=== PATIENT | male | born 1965 | race Caucasian/White ===

== ENCOUNTER 2019-03-23 14:47 | Inpatient (IN) | payer MEDICARE, OTHER ==
[~2019-03-23] VITALS: Ht 193 cm; Wt 150.0 kg
[~2019-03-23 14:47] MED LIST: CHOL200056 PO; FER325 PO; FURO40TA4 PO; HYDR-3672 PO; INSU100C SQ; LANT3I SC; METO-448 PO; NEPH PO; THIA100T56 PO
[2019-03-23] MEDS ORDERED: HYDROmorphONE 1 MG/ML SYG IV ONE (15:00)
[2019-03-23] MEDS ORDERED: SOD CHLORIDE 0.9% 1,000 ML IV STA (15:55)
[2019-03-23] MEDS ORDERED: DIPHTH/TET/ACEL PERTUSS (ADULT) 0.5 ML VIAL IM* ONE (16:00)
[2019-03-23] MEDS ORDERED: CEFAZOLIN 2 GM/50 ML (PMX) 50 ML IVPB ONE (16:00)
[2019-03-23] MEDS ORDERED: SOD CHLORIDE 0.9% 0 ML IV ONE (16:16)
[2019-03-23] MEDS ORDERED: ONDANSETRON 4 MG INJ IV PRN (17:00)
[2019-03-23] MEDS ORDERED: ACETAMINOPHEN 325 MG TAB PO PRN ×2 (17:00→17:30)
[2019-03-23] MEDS ORDERED: NACL 0.9% 3 ML SYG IV SCH (17:30)
[2019-03-23] MEDS ORDERED: VANCOMYCIN IV PER PHARMACY XX SCH (17:30)
[2019-03-23] MEDS ORDERED: HYDROCODONE/APAP (5/325) TAB PO PRN (17:30)
--- NOTE | 2019-03-23 18:11 | ERD ---
ER Documentation Chief Complaint Chief Complaint S/P [facility], HAS DISTAL TIB/FIB OPEN FX HPI 53-year-old male presenting status post injury to the right leg. He was brought in by ambulance. He states that he was trying to get into a car when his right leg twisted and he fell to the ground. Per EMS, he had an open wound and laila dence of deformity in the right lower extremity. Splint was placed and he was transferred to the hospital. Patient states he has diabetic neuropathy and cannot feel pain in his leg. He has additional complaints of dizziness at this time but was not dizzy prior to the fall. Denies any chest pain or shortness of breath. Has a history of diabetes, hypertension, and CKD. Denies any blood thinner use. No head injury today. ROS All systems reviewed and are negative except as per history of present illness. Medications Home Meds Reported Medications Insulin Glargine* (Lantus*) 100 Unit/Ml Soln, 22 UNIT SC QHS, #1 VIAL 03/23/19 Insulin Lispro (Humalog) 100 Unit/1 Ml Cartridge, 0 SQ SLIDING SCALE, EA WITH MEALS 03/23/19 Cholecalciferol (Vitamin D3) (Vitamin D-3) 2,000 Unit Tablet, 2000 UNIT PO DAILY, TAB 03/23/19 Thiamine* (Vitamin B-1*) 100 Mg Tablet, 100 MG PO DAILY, TAB 03/23/19 Furosemide* (Furosemide*) 40 Mg Tablet, 40 MG PO BID, TAB 03/23/19 Multivit/Ca Carb/B Cmplx/Fa* (Radha-Grace*) 1 Tab Tab, 1 TAB PO DAILY, TAB 03/23/19 Ferrous Sulfate* (Ferrous Sulfate*) 325 Mg Tabec, 325 MG PO BID, TAB 03/23/19 Metoprolol Tartrate* (Lopressor*) 25 Mg Tab, 25 MG PO BID, #60 TAB 03/23/19 Hydralazine Hcl* (Hydralazine Hcl*) 50 Mg Tab, 50 MG PO BID PRN for HTN, #60 TAB 03/23/19 Allergies Allergies: Coded Allergies: No Known Allergy (Unverified , 03/23/19) PMhx/Soc History of Surgery: No Anesthesia Reaction: No Hx Neurological Disorder: No Hx Respiratory Disorders: No Hx Cardiac Disorders: Yes (HTN) Hx Psychiatric Problems: No Hx Miscellaneous Medical Probl: Yes (CKD, DM on injectable insulin) Hx Alcohol Use: No Hx Substance Use: No Hx Tobacco Use: No Smoking Status: Never smoker FmHx Family History: diabetes Physical Exam Vitals Vital Signs Date Temp Pulse Resp B/P (MAP) Pulse Ox O2 O2 Flow FiO2 Time Delivery Rate 03/23/19 67 18 122/60 10 Nasal 2.0 16:00 (80) Cannula 03/23/19 98.9 84 18 124/101 99 14:58 (109) Physical Exam Const: No acute distress. Appears very pale Head: Atraumatic Eyes: Pale conjunctiva ENT: dry mucous membranes. Normal External Ears, Nose and Mouth. Neck: Full range of motion. No meningismus. Resp: Clear to auscultation bilaterally Cardio: Regular rate and rhythm, no murmurs. 2+ distal pulses in all 4 extremities Abd: Soft, non tender, non distended. Normal bowel sounds Skin: No petechiae or rashes Back: No midline or flank tenderness Ext: Right lower extremity with obvious deformity of the lower tib-fib with overlying laceration 6 cm. No bone visualized. There is active oozing of blood. No tenderness to palpation. All other extremities normal to inspection and palpation without evidence of deformity or trauma. Neur: Awake and alert, oriented x3, normal speech, cranial nerves intact, strength intact in bilateral upper extremities. Limited exam in the right lower extremity secondary to injury. Left lower extremity with normal strength. Sensations diminished in bilateral lower extremities up to the knees. Psych: Normal Mood and Affect Result Diagram: 03/23/19 1552 03/23/19 1552 Results 24 hrs Laboratory Tests Test 03/23/19 15:52 03/23/19 17:24 White Blood Count 7.2 10^3/ul Red Blood Count 2.62 10^6/ul Hemoglobin 7.3 g/dl Hematocrit 23.3 % Mean Corpuscular Volume 88.9 fl Mean Corpuscular Hemoglobin 27.9 pg Mean Corpuscular Hemoglobin Concent 31.3 g/dl Red Cell Distribution Width 14.1 % Platelet Count 187 10^3/UL Mean Platelet Volume 12.2 fl Immature Granulocytes % 0.600 % Neutrophils % 82.0 % Lymphocytes % 9.3 % Monocytes % 5.5 % Eosinophils % 2.3 % Basophils % 0.3 % Nucleated Red Blood Cells % 0.0 /100WBC Immature Granulocytes # 0.040 10^3/ul Neutrophils # 5.9 10^3/ul Lymphocytes # 0.7 10^3/ul Monocytes # 0.4 10^3/ul Eosinophils # 0.2 10^3/ul Basophils # 0.0 10^3/ul Nucleated Red Blood Cells # 0.0 10^3/ul Prothrombin Time 14.3 Sec Prothrombin Time Ratio 1.1 INR International Normalized Ratio 1.10 Activated Partial Thromboplast Time 30.3 Sec Sodium Level 140 mmol/L Potassium Level 5.3 mmol/L Chloride Level 114 mmol/L Carbon Dioxide Level 15 mmol/L Anion Gap 11 Blood Urea Nitrogen 77 mg/dl Creatinine 7.88 mg/dl Est Glomerular Filtrat Rate mL/min 7 mL/min Glucose Level 302 mg/dl Calcium Level 6.4 mg/dl Ethyl Alcohol Level < 10.0 mg/dl Urine Opiates Screen NEGATIVE Urine Barbiturates NEGATIVE Urine Amphetamines Screen NEGATIVE Urine Benzodiazepines Screen NEGATIVE Urine Cocaine Screen NEGATIVE Urine Cannabinoids NEGATIVE Current Medications Medications Dose Sig/Latoya Start Time Status Last (Trade) Ordered Route PRN Stop Time Admin Dose Reason Admin 0.5 mg ONCE ONCE 03/23/19 DC 03/23/19 Hydromorphone IV 15:00 15:03 HCl 03/23/19 15:01 (Dilaudid) Sodium 1,000 ml @ Q1H STAT 03/23/19 DC 03/23/19 Chloride 1,000 mls/hr IV 15:55 16:45 03/23/19 16:54 Diphtheria/ 0.5 ml ONCE ONCE 03/23/19 DC 03/23/19 Tetanus/Acell IM* 16:00 16:45 Pertussis 03/23/19 16:01 (Adacel) Cefazolin 50 ml @ ONCE ONCE 03/23/19 DC 03/23/19 Sodium/ 100 mls/hr IVPB 16:00 16:57 Dextrose 03/23/19 16:29 Sodium 0 ml @ 0 Q0M ONCE 03/23/19 DC Chloride mls/hr IV 16:16 03/23/19 16:18 Ondansetron 4 mg BRIDGE ORDER 03/23/19 DC HCl (Zofran PRN IV 17:00 Inj) NAUSEA/VOMITI 03/23/19 17:40 NG 650 mg ER BRIDGE 03/23/19 DC Acetaminophen PRN PO 17:00 (Tylenol .MILD PAIN 03/23/19 17:40 Tab) 1-3 OR TEMP Vancomycin VANCOMYCIN PER 03/23/19 DC HCl (Vanco PER PHARMACY PROTOCOL XX 17:30 Iv Per 03/23/19 17:40 Pharmacy) Cefepime HCl 50 ml @ Q24H IVPB 03/23/19 100 mls/hr 21:00 Sodium 1,000 ml @ [id number] IV 03/23/19 Chloride 75 mls/hr 17:25 IV Flush 3 ml PER 03/23/19 (NS 3 ml) PROTOCOL IV 17:30 Ondansetron 4 mg Q6H PRN 03/23/19 HCl (Zofran IV 17:30 Inj) NAUSEA/VOMITI NG 650 mg Q6H PRN 03/23/19 Acetaminophen PO .PAIN 1-3 17:30 (Tylenol OR TEMP Tab) 1 tab Q6H PRN 03/23/19 Acetaminophen PO .PAIN 4-6 17:30 / Hydrocodone Bitart ([place] (5/325)) Morphine 2 mg Q4H PRN 03/23/19 Sulfate IV .PAIN 17:30 (morphine) 7-10 40 mg DAILY@06 03/24/19 Pantoprazole PO 06:00 (Protonix Tab) Vancomycin 500 ml @ ONCE ONCE 03/23/19 HCl 2 125 mls/hr IVPB 18:30 gm/Sodium 03/23/19 22:29 Chloride Discontinue ONCE ONCE 03/23/19 Miscellaneous current oral XX 18:00 sulfonylur... 03/23/19 18:01 Information (* Miscellaneous Pharmacy Order) Diagnostic 1 ea 02 XX 03/24/19 Test (Pha) 02:00 (Accu-Chek) Insulin 23 units DAILY@199903/23/19 Glargine SC 20:00 (Lantus) ONCE ONCE 03/23/19 Miscellaneous HYPOGLYCEMIA XX 18:00 PROTOCOL 03/23/19 18:01 Information w... (* Miscellaneous Pharmacy Order) Insulin NOVOLOG Q6 SC 03/23/19 Aspart *MILD* 18:00 (Novolog ALGORITHM Insulin Pen) Discontinue ONCE ONCE 03/23/19 Miscellaneous all previ... XX 18:00 03/23/19 18:01 Information (* Miscellaneous Pharmacy Order) Procedures/MDM EMERGENT LABS AND DIAGNOSTIC STUDIES: Lab Results above were reviewed and interpreted by me. CBC: Evidence of anemia, likely combination of chronic disease with acute blood loss BMP: Elevated BUN and creatinine with evidence of acidosis and mild hyperkalemia. Hyperglycemic. Ethanol negative Coags normal 12-lead EKG was interpreted by Bessy Portillo MD: Normal Sinus Rhythm with ventricular rate of 67 beats per minute Normal axis Normal intervals No acute ST or T wave changes suggestive of acute ischemia or STEMI. Radiology Results as interpreted by Radiology below were reviewed by Renan paul MD: X-ray of the right tib-fib shows evidence of distal tibia and fibula fracture with displacement. Chest x-ray shows no acute abnormalities Initial Nursing notes reviewed. Previous Medical Records requested via the Electronic Health Record. EMERGENCY DEPARTMENT COURSE / MEDICAL DECISION MAKING: Patient presents with open fracture of the right tib-fib. He was also noted to be pale and likely lost a lot of blood from the injury. His hemoglobin was low on work-up. He also has evidence of significant renal failure but is not currently on dialysis. He will need admission for management of his tib-fib fracture but will also need consultation with a pc technician. I have ordered 2 units of PRBCs given his symptomatic anemia and continuous bleeding. Pressure dressing was placed. He was given broad-spectrum antibiotics for open fracture. Splint was placed. Patient remained hemodynamically stable while in the ED. Critical Care Management of Hemorrhage and Symptomatic Anemia: Time: 40 minutes Treatments/Evaluations: Close monitoring and management of bleeding sources while maintaining tight balance of fluid. With judicious assessment of anemia, coagulopathy and thrombocytopenia, while considering correction with blood products and medical therapy. Accepting Care Team: Current data and ongoing care discussed. Time: Time of admission Primary Provider: Dr. Aidan Toth Consulting: Dr. Santos with orthopedics Outstanding Data: none Departure Diagnosis: Primary Impression: Open fracture of right tibia and fibula Encounter type: initial encounter Additional Impressions: Fracture of proximal end of right fibula Encounter type: initial encounter Fracture type: open Fracture morphology: unspecified fracture morphology Acute on chronic renal failure Acute renal failure type: unspecified Chronic kidney disease stage: unspecified stage Qualified Codes: N17.9 - Acute kidney failure, unspecified; N18.9 - Chronic kidney disease, unspecified Anemia Anemia type: unspecified type Qualified Codes: D64.9 - Anemia, unspecified Condition: Serious LESA PORTILLO MD Mar 23, 2019 18:10
--- NOTE | 2019-03-23 18:21 | HP ---
Date/Time of Note Date/Time of Note DATE: 03/23/19 TIME: 18:20 Assessment/Plan VTE Prophylaxis Pharmacological prophylaxis: other Lines/Catheters IV Catheter Type (from Nrsg): Saline Lock Assessment/Plan Hospital Course Patient is a male with a past medical history significant for diabetes mellitus, severe peripheral neuropathy, anemia, CKD who presents to [facility] for traumatic fall and open fracture. Patient has an open right tib-fib fracture however currently is not stating that he is in any pain due to severe neuropathy. Patient states that for quite a while he has not been able to have much feeling in his lower extremity however bit worse on his right where his fractures. Patient states that he was try to get in his truck, lost his balance and fell and subsequently broke his leg. Patient currently denies any shortness of breath, denies chest pain, denies nausea vomiting, denies headache, denies vision changes, denies abdominal pain. Objective Physical exam General: Patient is laying in bed and answers questions appropriately Mentation: Patient is alert and oriented 4, Head: Normocephalic atraumatic Eyes: EOMI, pupils reactive to light Neck: Supple, nontender, midline Respiratory: Clear to auscultation bilaterally Cardiovascular: regular rate, no obvious murmurs Gastrointestinal: non-tender to palpation, bowel sounds heard. Neurological: Moves all extremities spontaneously Musculoskeletal: Right lower extremity bandaged, open fracture Assessment and plan Right tib-fib open fracture -Broad-spectrum IV antibiotic -Orthopedic surgeon notified of open fracture, keep n.p.o. for possible surgery -Infection disease consulted for antibiotic management -Cardiology consulted for possible clearance as much as possible before urgent surgery Chronic kidney disease with likely near end-stage renal disease -Nephrology consulted -Patient has been told in the past that he needs dialysis but has not initiated it yet, open to dialysis at this time Electrolyte derangement -Replete as needed -Unable to calculate accurate calcium as there is no albumin, ordered, will supplement with 1 g of calcium gluconate for now -Monitor potassium, Kayexalate as needed moderate to severe anemia -2 units packed cells ordered -Monitor closely Peripheral neuropathy -Moderate to severe as patient has very little feeling in his right lower extremity and left lower extremity that is chronic Diabetes mellitus -Lantus and insulin sliding scale as per patient's home regimen Disposition -Orthopedic surgery recommendations appreciated, will likely need urgent surgery -Also pending consultation from cardiology, infectious disease, and nephrology. -Admit to telemetry for multiple electrolyte derangement. Result Diagram: 03/23/19 1552 03/23/19 1552 Results 24hrs Laboratory Tests Test 03/23/19 15:52 03/23/19 17:24 White Blood Count 7.2 Red Blood Count 2.62 L Hemoglobin 7.3 L Hematocrit 23.3 L Mean Corpuscular Volume 88.9 Mean Corpuscular Hemoglobin 27.9 L Mean Corpuscular Hemoglobin Concent 31.3 L Red Cell Distribution Width 14.1 Platelet Count 187 Mean Platelet Volume 12.2 H Immature Granulocytes % 0.600 H Neutrophils % 82.0 H Lymphocytes % 9.3 L Monocytes % 5.5 Eosinophils % 2.3 Basophils % 0.3 Nucleated Red Blood Cells % 0.0 Immature Granulocytes # 0.040 H Neutrophils # 5.9 Lymphocytes # 0.7 L Monocytes # 0.4 Eosinophils # 0.2 Basophils # 0.0 Nucleated Red Blood Cells # 0.0 Prothrombin Time 14.3 Prothrombin Time Ratio 1.1 INR International Normalized Ratio 1.10 Activated Partial Thromboplast Time 30.3 Sodium Level 140 Potassium Level 5.3 H Chloride Level 114 H Carbon Dioxide Level 15 L Anion Gap 11 Blood Urea Nitrogen 77 H Creatinine 7.88 H Est Glomerular Filtrat Rate mL/min 7 L Glucose Level 302 H Calcium Level 6.4 L Ethyl Alcohol Level < 10.0 H Urine Opiates Screen NEGATIVE Urine Barbiturates NEGATIVE Urine Amphetamines Screen NEGATIVE Urine Benzodiazepines Screen NEGATIVE Urine Cocaine Screen NEGATIVE Urine Cannabinoids NEGATIVE HPI/ROS Admit Date/Time Admit Date/Time PMH/Family/Social Past Medical History Medications Current Medications Cefepime HCl 50 ml @ 100 mls/hr Q24H IVPB ; Start 03/23/19 at 21:00 Sodium Chloride 1,000 ml @ 75 mls/hr [id number] IV ; Start 03/23/19 at 17:25 IV Flush (NS 3 ml) 3 ml PER PROTOCOL IV ; Start 03/23/19 at 17:30 Ondansetron HCl (Zofran Inj) 4 mg Q6H PRN IV NAUSEA/VOMITING; Start 03/23/19 at 17:30 Acetaminophen (Tylenol Tab) 650 mg Q6H PRN PO .PAIN 1-3 OR TEMP; Start 03/23/19 at 17:30 Acetaminophen/ Hydrocodone Bitart ([place] (5/325)) 1 tab Q6H PRN PO .PAIN 4-6; Start 03/23/19 at 17:30 Morphine Sulfate (morphine) 2 mg Q4H PRN IV .PAIN 7-10; Start 03/23/19 at 17:30 Pantoprazole (Protonix Tab) 40 mg DAILY@06 PO ; Start 03/24/19 at 06:00 Vancomycin HCl 2 gm/Sodium Chloride 500 ml @ 125 mls/hr ONCE ONCE IVPB ; Start 03/23/19 at 18:30; Stop 03/23/19 at 22:29 Diagnostic Test (Pha) (Accu-Chek) 1 ea 02 XX ; Start 03/24/19 at 02:00 Insulin Glargine (Lantus) 23 units DAILY@2000 SC ; Start 03/23/19 at 20:00 Insulin Aspart (Novolog Insulin Pen) NOVOLOG *MILD* ALGORITHM Q6 SC ; Start 03/23/19 at 18:00 Calcium Gluconate 1 gm/Dextrose 110 ml @ 110 mls/hr ONCE ONCE IVPB ; Start 03/23/19 at 18:30; Stop 03/23/19 at 19:29 Ferrous Sulfate (Ferrous Sulfate (Ec)) 325 mg BID PO ; Start 03/23/19 at 21:00; Status UNV Furosemide (Lasix) 40 mg BID PO ; Start 03/23/19 at 21:00; Status UNV Metoprolol Tartrate (Lopressor) 25 mg BID PO ; Start 03/23/19 at 21:00; Status UNV Multivit/Ca Carb/ B Cmplx/FA/Prenat (Radha-Grace) 1 tab DAILY PO ; Start 03/24/19 at 09:00; Status UNV Thiamine HCl (Vitamin B1) 100 mg DAILY PO ; Start 03/24/19 at 09:00; Status UNV Miscellaneous Information 2,000 unit DAILY PO ; Start 03/24/19 at 09:00; Status UNV Hydralazine HCl (Apresoline) 10 mg Q4H PRN IV sbp >160; Start 03/23/19 at 18:30; Status UNV Coded Allergies: No Known Allergy (Unverified , 03/23/19) Social History Smoking Status: Never smoker Exam/Review of Systems Vital Signs Vitals Vital Signs Date Temp Pulse Resp B/P (MAP) Pulse Ox O2 O2 Flow FiO2 Time Delivery Rate 03/23/19 68 18 138/60 100 Nasal 2.0 18:00 (86) Cannula 03/23/19 98.9 14:58 BRIANDA IZQUIERDO Mar 23, 2019 18:20
[2019-03-23] MEDS ORDERED: CALCIUM GLUCONATE 10% 1 GM in DEXTROSE 5% 100 ML IVPB ONE (18:30)
[2019-03-23] MEDS ORDERED: VANCOMYCIN HCL 2 GM in SOD CHLORIDE 0.9% 500 ML IVPB ONE (18:30)
[2019-03-23 19:24] VITALS: BP 128/60; PULSE 76; RESP 18
--- NOTE | 2019-03-23 19:51 | CONS ---
Assessment/Plan Assessment/Plan Hospital Course (Demo Recall) 53 yo diabetic with near ESRD, severe anemia, peripheral neuropathy presents with open tib-fib fracture and for preop cardiovascular evaluation. 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 Consequences of delaying surgery significantly preclude ischemic workup. Echo to evaluate LV systolic function and for structural abnormalities given dyspnea with minimal exertion Will put him on a statin, which is a class 1 recommendation for secondary prevention in a diabetic over age 40, and lipid panel ordered Discussed importance of lifestyle -- better eating, and more exercise/mobility, to reduce risk of ASCVD. Also discussed importance of more routine follow-up with his medical providers going forward. Consultation Date/Type/Reason Admit Date/Time Date of Consultation: Mar 23, 2019 Type of Consult Cardiology Reason for Consultation preoperative cardiovascular evaluation Requesting Provider: BRIANDA IZQUIERDO Date/Time of Note DATE: 03/23/19 TIME: 19:38 Hx of Present Illness 53 yo with diabetes x about 20 years, diabetic neuropathy, chronic kidney disease stage 4 presents after a fall while getting into his truck leading to a tib-fib fracture. Apparently this is an open fracture, but he does not feel any pain whatsoever. He has no known prior cardiac issues, his follow up for primary care is spotty with his last care to his TV NEWS DIRECTOR who serves as his primary over six months ago. He has no head of integrated media, and has not seen a kidney specialist in a few years. He cannot recall ever having a stress test. He is minimally active, walks with a walker, has progressively gotten more dyspneic over time, and now reports that walking 100 feet will cause him to be short of breath. He has no chest pain. He has chronic lower extremity edema. He admits diet is not ideal, he rents a room, eats a lot of microwaved foods, girlfriend does cook some vegetables for him, tries to provide him fruit as well, he does not eat much of either, particularly fruit. He also has chronic lower extremity edema up to the knees. Lifelong nonsmoker, minimal alcohol, no drugs, no family history of premature coronary disease. Constitutional: no complaints Eyes: no complaints ENT: no complaints Respiratory: shortness of breath (with exertion, not at present) Cardiovascular: no complaints; No chest pain Gastrointestinal: no complaints Genitourinary: no complaints Musculoskeletal: no complaints; No bone/joint pain Skin: no complaints Neurologic: other (neuropathy in legs) Endocrine: no complaints Lymphatic: no complaints Psychological: no complaints Immunologic: no complaints Past Medical History Medical History: diabetes, hypertension, renal disease Home Meds Reported Medications Insulin Glargine* (Lantus*) 100 Unit/Ml Soln, 22 UNIT SC QHS, #1 VIAL 03/23/19 Insulin Lispro (Humalog) 100 Unit/1 Ml Cartridge, 0 SQ SLIDING SCALE, EA WITH MEALS 03/23/19 Cholecalciferol (Vitamin D3) (Vitamin D-3) 2,000 Unit Tablet, 2000 UNIT PO DAILY, TAB 03/23/19 Thiamine* (Vitamin B-1*) 100 Mg Tablet, 100 MG PO DAILY, TAB 03/23/19 Furosemide* (Furosemide*) 40 Mg Tablet, 40 MG PO BID, TAB 03/23/19 Multivit/Ca Carb/B Cmplx/Fa* (Radha-Grace*) 1 Tab Tab, 1 TAB PO DAILY, TAB 03/23/19 Ferrous Sulfate* (Ferrous Sulfate*) 325 Mg Tabec, 325 MG PO BID, TAB 03/23/19 Metoprolol Tartrate* (Lopressor*) 25 Mg Tab, 25 MG PO BID, #60 TAB 03/23/19 Hydralazine Hcl* (Hydralazine Hcl*) 50 Mg Tab, 50 MG PO BID PRN for HTN, #60 TAB 03/23/19 Medications Current Medications Cefepime HCl 50 ml @ 100 mls/hr Q24H IVPB ; Start 03/23/19 at 21:00 Sodium Chloride 1,000 ml @ 75 mls/hr [id number] IV ; Start 03/23/19 at 17:25 IV Flush (NS 3 ml) 3 ml PER PROTOCOL IV ; Start 03/23/19 at 17:30 Ondansetron HCl (Zofran Inj) 4 mg Q6H PRN IV NAUSEA/VOMITING; Start 03/23/19 at 17:30 Acetaminophen (Tylenol Tab) 650 mg Q6H PRN PO .PAIN 1-3 OR TEMP; Start 03/23/19 at 17:30 Acetaminophen/ Hydrocodone Bitart ([place] (5/325)) 1 tab Q6H PRN PO .PAIN 4-6; Start 03/23/19 at 17:30 Morphine Sulfate (morphine) 2 mg Q4H PRN IV .PAIN 7-10; Start 03/23/19 at 17:30 Pantoprazole (Protonix Tab) 40 mg DAILY@06 PO ; Start 03/24/19 at 06:00 Vancomycin HCl 2 gm/Sodium Chloride 500 ml @ 125 mls/hr ONCE ONCE IVPB ; Start 03/23/19 at 18:30; Stop 03/23/19 at 22:29 Diagnostic Test (Pha) (Accu-Chek) 1 ea 02 XX ; Start 03/24/19 at 02:00 Insulin Glargine (Lantus) 23 units DAILY@2000 SC ; Start 03/23/19 at 20:00 Insulin Aspart (Novolog Insulin Pen) NOVOLOG *MILD* ALGORITHM Q6 SC ; Start 03/23/19 at 18:00 Ferrous Sulfate (Ferrous Sulfate (Ec)) 325 mg BID PO ; Start 03/23/19 at 21:00 Furosemide (Lasix) 40 mg BID PO ; Start 03/23/19 at 21:00 Metoprolol Tartrate (Lopressor) 25 mg BID PO ; Start 03/23/19 at 21:00 Multivit/Ca Carb/ B Cmplx/FA/Prenat (Radha-Grace) 1 tab DAILY PO ; Start 03/24/19 at 09:00 Thiamine HCl (Vitamin B1) 100 mg DAILY PO ; Start 03/24/19 at 09:00 Hydralazine HCl (Apresoline) 10 mg Q4H PRN IV sbp >160; Start 03/23/19 at 18:30 Cholecalciferol (Vitamin D) 2,000 unit DAILY PO ; Start 03/24/19 at 09:00 Allergies: Coded Allergies: No Known Allergy (Unverified , 03/23/19) Past Surgical History Past Surgical Hx: other (abscess excisiion from back) Family History Significant Family History: no pertinent family hx (no premature cad) Social History Alcohol Use: rarely Smoking Status: Never smoker Drug Use: none Exam/Review of Systems Vital Signs Vitals Vital Signs Date Temp Pulse Resp B/P (MAP) Pulse Ox O2 O2 Flow FiO2 Time Delivery Rate 03/23/19 98.4 76 18 128/60 99 Room Air 19:24 (82) 03/23/19 2.0 18:22 Exam Constitutional: alert, oriented, other (obese) Psych: nl mood/affect Head: normocephalic, atraumatic Eyes: EOMI, nl lids, nl sclera ENMT: nl external ears & nose Neck: supple; No jvd, No bruits Respiratory: clear to auscultation (anteriorly), normal air movement Cardiovascular: regular rate and rhythm, nl pulses; No murmurs/extra sounds Gastrointestinal: soft (obese), nl liver, spleen, non-tender Musculoskeletal: other (right leg not examined, has an open tib-fib fracture) Extremities: edema (edema up to just below the knee on the left, did not examine right leg); No normal pulses (cannot palpate DP or PT pulses on the left) Neurological: nl mental status, nl speech Skin: nl turgor; No rash or lesions Labs Result Diagram: 03/23/19 1552 03/23/19 1552 Results 24hrs Laboratory Tests Test 03/23/19 15:52 03/23/19 17:24 White Blood Count 7.2 Red Blood Count 2.62 L Hemoglobin 7.3 L Hematocrit 23.3 L Mean Corpuscular Volume 88.9 Mean Corpuscular Hemoglobin 27.9 L Mean Corpuscular Hemoglobin Concent 31.3 L Red Cell Distribution Width 14.1 Platelet Count 187 Mean Platelet Volume 12.2 H Immature Granulocytes % 0.600 H Neutrophils % 82.0 H Lymphocytes % 9.3 L Monocytes % 5.5 Eosinophils % 2.3 Basophils % 0.3 Nucleated Red Blood Cells % 0.0 Immature Granulocytes # 0.040 H Neutrophils # 5.9 Lymphocytes # 0.7 L Monocytes # 0.4 Eosinophils # 0.2 Basophils # 0.0 Nucleated Red Blood Cells # 0.0 Prothrombin Time 14.3 Prothrombin Time Ratio 1.1 INR International Normalized Ratio 1.10 Activated Partial Thromboplast Time 30.3 Sodium Level 140 Potassium Level 5.3 H Chloride Level 114 H Carbon Dioxide Level 15 L Anion Gap 11 Blood Urea Nitrogen 77 H Creatinine 7.88 H Est Glomerular Filtrat Rate mL/min 7 L Glucose Level 302 H Calcium Level 6.4 L Albumin 2.6 L Ethyl Alcohol Level < 10.0 H Urine Opiates Screen NEGATIVE Urine Barbiturates NEGATIVE Urine Amphetamines Screen NEGATIVE Urine Benzodiazepines Screen NEGATIVE Urine Cocaine Screen NEGATIVE Urine Cannabinoids NEGATIVE Imaging Imaging EKG from presentation shows nsr at 67 bpm and is a normal appearing ekg Medications Medications Current Medications Cefepime HCl 50 ml @ 100 mls/hr Q24H IVPB ; Start 03/23/19 at 21:00 Sodium Chloride 1,000 ml @ 75 mls/hr [id number] IV ; Start 03/23/19 at 17:25 IV Flush (NS 3 ml) 3 ml PER PROTOCOL IV ; Start 03/23/19 at 17:30 Ondansetron HCl (Zofran Inj) 4 mg Q6H PRN IV NAUSEA/VOMITING; Start 03/23/19 at 17:30 Acetaminophen (Tylenol Tab) 650 mg Q6H PRN PO .PAIN 1-3 OR TEMP; Start 03/23/19 at 17:30 Acetaminophen/ Hydrocodone Bitart ([place] (5/325)) 1 tab Q6H PRN PO .PAIN 4-6; Start 03/23/19 at 17:30 Morphine Sulfate (morphine) 2 mg Q4H PRN IV .PAIN 7-10; Start 03/23/19 at 17:30 Pantoprazole (Protonix Tab) 40 mg DAILY@06 PO ; Start 03/24/19 at 06:00 Vancomycin HCl 2 gm/Sodium Chloride 500 ml @ 125 mls/hr ONCE ONCE IVPB ; Start 03/23/19 at 18:30; Stop 03/23/19 at 22:29 Diagnostic Test (Pha) (Accu-Chek) 1 ea 02 XX ; Start 03/24/19 at 02:00 Insulin Glargine (Lantus) 23 units DAILY@2000 SC ; Start 03/23/19 at 20:00 Insulin Aspart (Novolog Insulin Pen) NOVOLOG *MILD* ALGORITHM Q6 SC ; Start 03/23/19 at 18:00 Ferrous Sulfate (Ferrous Sulfate (Ec)) 325 mg BID PO ; Start 03/23/19 at 21:00 Furosemide (Lasix) 40 mg BID PO ; Start 03/23/19 at 21:00 Metoprolol Tartrate (Lopressor) 25 mg BID PO ; Start 03/23/19 at 21:00 Multivit/Ca Carb/ B Cmplx/FA/Prenat (Radha-Grace) 1 tab DAILY PO ; Start 03/24/19 at 09:00 Thiamine HCl (Vitamin B1) 100 mg DAILY PO ; Start 03/24/19 at 09:00 Hydralazine HCl (Apresoline) 10 mg Q4H PRN IV sbp >160; Start 03/23/19 at 18:30 Cholecalciferol (Vitamin D) 2,000 unit DAILY PO ; Start 03/24/19 at 09:00 MÓNICA DRAKE Mar 23, 2019 19:51
[2019-03-23 20:00] VITALS: Ht 193 cm; Wt 150.0 kg
[2019-03-23] MEDS: morphine 2 MG INJ IV PRN (20:23)
[2019-03-23] MEDS: SOD CHLORIDE 0.45% 1,000 ML IV SCH (20:28)
[2019-03-23] MEDS: FERROUS SULFATE (EC) 325 MG TAB PO SCH (20:29)
[2019-03-23] MEDS: CEFEPIME 1GM/50 ML (PMX) 50 ML IVPB SCH (20:29)
[2019-03-23] MEDS: ATORVASTATIN 40 MG TAB PO SCH (20:30)
[2019-03-23] MEDS: METOPROLOL 25 MG TAB PO SCH (20:30)
[2019-03-23] MEDS: FUROSEMIDE 40 MG TAB PO SCH (20:31)
[2019-03-23] MEDS: INSULIN ASPART [NOVOLOG] 3 ML PEN SC SCH (21:48)
[2019-03-23] MEDS: INSULIN GLARGINE [LANTus] (100 UNITS/ML) SYG SC SCH (21:49)
[2019-03-24] VITALS (15 sets, daily range): BP systolic 124–213; BP diastolic 55–95; PULSE 65–86; RESP 18–20
[2019-03-24] MEDS: ACCU-CHEK XX SCH (02:00)
[2019-03-24] MEDS: ONDANSETRON 4 MG INJ IV PRN (04:37)
[2019-03-24] MEDS: PANTOPRAZOLE (EC) 40 MG TAB PO SCH (06:00)
[2019-03-24] MEDS: SOD CHLORIDE 0.45% 1,000 ML IV SCH ×2 (06:45→20:05)
[2019-03-24] MEDS: INSULIN ASPART [NOVOLOG] 3 ML PEN SC SCH ×2 (06:57)
[2019-03-24] MEDS: CHOLECALCIFEROL 2,000 UNIT CAP PO SCH (09:00)
[2019-03-24] MEDS: FERROUS SULFATE (EC) 325 MG TAB PO SCH ×2 (09:00→22:11)
[2019-03-24] MEDS: METOPROLOL 25 MG TAB PO SCH ×2 (09:00→22:07)
[2019-03-24] MEDS ORDERED: NON-FORMULARY/PATIENT OWN MED (Cholecalciferol (Vitamin D3) (Vitamin D-3) 2,000 UNIT) PO SCH (09:00)
[2019-03-24] MEDS: THIAMINE 100 MG TAB PO SCH (09:00)
[2019-03-24] MEDS: FUROSEMIDE 40 MG TAB PO SCH ×2 (09:00→22:06)
[2019-03-24] MEDS: MULTIVIT/CA CARB/B CMPLX/FA TAB PO SCH (09:00)
[2019-03-24] MEDS ORDERED: INSULIN ASPART [NOVOLOG] 3 ML PEN SC SCH (12:00)
[2019-03-24] MEDS: Insulin NOVOLOG SS MODERATE Algorithm(NPO/TPN/ENTERAL FEEDS) SC SCH ×2 (12:08→17:49)
--- NOTE | 2019-03-24 12:12 | CONS ---
DATE OF ADMISSION: 03/23/2019 DATE OF CONSULTATION: 03/24/2019 TYPE OF CONSULTATION: Nephrology. REASON FOR CONSULTATION: CKD, possible acute kidney injury. PHYSICIAN REQUESTING CONSULT: Aidan Toth MD HISTORY OF PRESENT ILLNESS: This is a 53-year-old male with a past medical history of CKD stage III- IV, with unknown baseline creatinine, history of diabetes, history of peripheral neuropathy, anemia, presents to [facility] after a traumatic fall and open fracture. The patient was b rought into the emergency room, had x-rays performed which showed evidence of fracture of the right t ibia-fibula. The patient was subsequently placed in a brace and admitted to telemetry for evaluation . In terms of patient's renal history, the patient states he has underlying CKD. He reports function a round 40%, approximately 2 years ago. The patient states six months ago he did have blood work done, but was not told what his kidney function was. The patient does admit over the last month of uremic symptoms of fatigue, decreased appetite, metallic taste in his mouth. The patient states his urine has been adequate. He denies any hemoptysis, any hematemesis. The patient does admit to occasional frothy urine. PAST MEDICAL HISTORY: History of CKD, history of diabetes, history of hypertension. FAMILY HISTORY: No family history of kidney disease. SOCIAL HISTORY: Does not drink, smoke or do drugs. MEDICATIONS: The patient's medications have been reviewed. REVIEW OF SYSTEMS: A 14-point review of systems conducted. Pertinent positives stated in HPI, other smith negative. PHYSICAL EXAMINATION: VITAL SIGNS: Blood pressure is 141/71, respiration 18, pulse 65, temperature 98.1. HEENT: Head is normocephalic. NECK: Supple. HEART: Regular rate. LUNGS: Show diminished breath sounds at the base. ABDOMEN: Soft, nontender to palpation without rebound or guarding. EXTREMITIES: Negative for clubbing, cyanosis. Positive edema. The patient's right leg is in a brac e. NEUROLOGIC: Limited exam but no obvious focal deficits. MEDICATIONS: Have been reviewed. LABORATORY DATA: From 03/23/2019 was reviewed. IMAGING STUDIES: Have been reviewed. ASSESSMENT AND PLAN: This is a 53-year-old male who presents with: 1. Renal failure, possible chronic kidney disease with progression towards end-stage renal disease v ersus acute on chronic kidney injury. Plan at this point, is stool for evaluation. We will check UA with microanalysis, check urine electrolytes. We will check a renal ultrasound to rule out obstruct ion. Agree with gentle volume expansion. Please note, I did speak with the patient about the possib ility of starting dialysis given his advanced renal failure and uremic signs and symptoms. The patie nt is amenable to start dialysis. We will therefore follow up renal panel, electrolytes. If there i s no significant improvement in renal function, would have a Perm-A-Cath placement to initiate dialys is. 2. Hyperkalemia. Etiology is likely multifactorial secondary to chronic kidney disease, metabolic acidosis, hyperglycemia. Plan is to repeat renal panel. Recommend to try to obtain new glycemia con trol, monitor closely. 3. Metabolic acidosis. Likely secondary to chronic kidney disease. Will check an arterial blood ga s to see if the patient is appropriately compensated. 4. Anemia. Monitor hemoglobin and hematocrit levels. We will check an iron panel. The patient is pending blood transfusion. Will give Epogen as needed. 5. Mineral bone disorder. Monitor calcium and phosphorus levels. Check a PTH level, vitamin D leve l. 6. Status post fall with right tibia-fibula fracture. Continue to monitor. Follow up with surgery. 7. Diabetes. Continue current insulin regimen. 8. Peripheral neuropathy. Continue current medical management. Thank you, Dr. Toth, for this interesting consult. It will be a pleasure to follow patient with you rufus riveraout the hospital course. Dictated By: KITTY EID DO NR/NTS Conf#: [id number] DID#: [id number] CC: AIDAN TOTH MD;*EndCC*
--- NOTE | 2019-03-24 12:53 | CONS ---
DATE OF ADMISSION: 03/23/2019 DATE OF CONSULTATION: 03/23/2019 TYPE OF CONSULTATION: Infectious Disease. REASON FOR CONSULTATION: Antibiotic management. HISTORY OF PRESENT ILLNESS: Sascha Neely is a 53-year-old male who suffered a mechanical fall and has a distal tibia-fibula open fracture. The patient presents status post injury to his right leg, w as brought in by ambulance. He was trying to get into his car when his right leg twisted and he fell to the ground. Per EMS, he had an open wound and evidence of deformity of the right lower extremity . The splint was placed and he was transferred to the hospital. The patient has a number of problems includin. Diabetic neuropathy and cannot feel pain in the leg. 2. He has complaints of dizziness, but was not dizzy in the fall. 3. Hypertension. 4. Chronic renal disease. As noted, he suffered a distal tibia and fibula open fracture. The patient is on injectable insulin. FAMILY HISTORY: Noncontributory. SOCIAL HISTORY: He does not smoke, drink or abuse drugs and he has a family history of diabetes. ALLERGIES: NONE TO PENICILLIN, SULFA OR FOODS. MEDICATIONS: Per chart. REVIEW OF SYSTEMS: Noncontributory. PHYSICAL EXAMINATION: GENERAL: The patient is pale, well-developed, well-nourished male in no acute distress. VITAL SIGNS: Stable. He is afebrile. SKIN: Without generalized rash. HEENT: Within normal limits. NECK: Supple. LYMPH NODES: None palpable. CHEST: Decreased breath sounds at the bases. HEART: Without murmur or gallop. ABDOMEN: Soft, nontender. EXTREMITIES: Without cyanosis, clubbing, or edema. His right lower extremity has an obvious deformi ty of the lower tibia and fibula with overlying laceration about 6 cm. There is no bone visualized. There is active oozing of blood. RECTAL AND GENITAL: Deferred. NEUROLOGIC: No focal neurological abnormality. ANCILLARY LABORATORY DATA: White count 7.2, H and H of 7.3/23,3, platelet count 187,000. BUN and cr eatinine 77/7.88, glucose of 302 with 82% neutrophils. Patient was started on vancomycin and cefepime. X-ray shows evidence of distal tibia and fibula frac ture with displacement. Chest x-ray shows no acute abnormalities. Dr. Santos was asked to consult from an orthopedic perspective. The patient had an open fracture, currently is on antibiotic therapy. T he patient was seen by Pauline Cloud. The patient is minimally active, walks with a walker progre ssively gotten more dyspneic over time, now reports walking on his feet. This causes him to be short of breath. As noted, he is on insulin. In terms of antibiotic management. The patient should be o n antibiotics for at least 3 days since he has open comminuted fracture. He is to be evaluated by Dr Nettie Santos, to see what has to be done. He will likely need urgent surgery. I will dictate my findings t o the hospitalist. Of note, is the fact that his BUN and creatinine 77/7.88 today, so he will probab ly require hemodialysis. Nephrology has been called. Dictated By: KO LOVE MD, JD/FELICIA Conf#: [id number] DID#: [id number] CC: BRIANDA IZQUIERDO MD;*EndCC*
--- NOTE | 2019-03-24 16:40 | RADRPT ---
Echocardiogram Report Patient Name: SILVIA GARCIAPatient ID: [id number] : 1965 (53y 5m)Study Date: 03/24/2019 7:09:43 AM Gender: MAccession #: [id number] Tech: Kayla [facility] Location: [facility] Ref.Physician: BRIANDA IZQUIERDO Height(Cm): BSA: Weight(Kg): Quality: AdequateOrder Physician: BRIANDA IZQUIERDO Account #: Procedures: Echocardiographic Report: Transthoracic echocardiogram with complete 2D, M-Mode, and doppler examination. Indications: Cardiac workup. Measurements: 2D/M Mode Doppler Measurement Value Normal Range Measurement Value Normal Range LVIDd 2D 5.0 [ 4.2 - 5.8 ] cm AV Peak Stanley 1.7 [ 100.0 - 170.0 ] cm/sec LVIDs 2D 2.5 [ 2.5 - 4.0 ] cm AV Peak PG 12.0 [ 2.0 - 9.0 ] mmHg LVPWd 2D 1.3 [ 0.6 - 1.0 ] cm LVOT Peak Stanley 1.2 [ 70.0 - 110.0 ] cm/sec IVSd 2D 1.2 [ 0.6 - 1.0 ] cm LVOT Peak PG 6.0 [ 2.0 - 6.0 ] mmHg AoR Diam 2D 3.0 [ 2.6 - 3.4 ] cm MV E Peak Stanley 0.9 [ 60.0 - 130.0 ] cm/sec EDV 2D 120.0 [ 62.0 - 150.0 ] ml MV A Peak Stanley 0.8 [ 100.0 - 120.0 ] cm/sec ESV 2D 22.1 [ 21.0 - 61.0 ] ml MV E/A 1.2 [ 0.8 - 1.5 ] ratio EF 2D 81.6 [ 52.0 - 72.0 ] percent MV Decel Time 190 [ 104 - 258 ] msec LA Dimen 2D 4.6 [ 3.0 - 4.0 ] cm Lat E` Stanley 0.1 [ 10.0 - 15.0 ] cm/sec Lateral E/E` 10.7 [ 1.0 - 2.0 ] ratio Med E` Stanley 0.1 cm/sec MV E/A 1.2 [ 0.8 - 1.5 ] ratio TR Peak Stanley 2.4 [ 100.0 - 280.0 ] cm/sec TR Peak PG 22.0 mmHg RVSP 25.0 [ 10.0 - 36.0 ] mmHg RA Pressure 3.0 mmHg Findings: Left Ventricle: Normal left ventricular systolic function. Normal left ventricular cavity size. Mild concentric left ventricular hypertrophy. Ejection fraction is visually estimated at 65 %. Tissue Doppler/Mitral Doppler indices are consistent with pseudonormalization with mildly elevated left atrial pressure (Stage II diastolic dysfunction). Right Ventricle: Normal right ventricular size. Normal right ventricular systolic function. Left Atrium: There is mild enlargement of left atrium. Right Atrium: The right atrium is normal in size. Mitral Valve: Normal appearance and function of the mitral valve with trace physiologic regurgitation. Aortic Valve: Normal appearance of the aortic valve. No significant aortic stenosis or insufficiency. Tricuspid Valve: Normal appearance of the tricuspid valve. The estimated Peak RVSP is 25 mmHg. There is trace tricuspid regurgitation. Pulmonic Valve: Pulmonic valve not well visualized. Pericardium: Normal pericardium with no significant pericardial effusion. Aorta: Normal aortic root. IVC: Normal size and normal respiratory collapse consistent with normal right atrial pressure. Conclusions: Mild concentric left ventricular hypertrophy with normal systolic function. Mild left atrial enlargement. Trace mitral and tricuspid regurgitation with normal pulmonary pressures. Electronically Signed By: Pauline Cloud 2019-03-24 16:39:35 PDT
--- NOTE | 2019-03-24 16:58 | SIPON ---
Date/Time of Note Date/Time of Note DATE: 03/24/19 TIME: 16:57 Operative Report Preoperative Diagnosis ESRD Postoperative Diagnosis same Operation/Procedure Performed R IJ permacath placement Surgeon see signature line business office assistant none Anesthesia: other Estimated blood loss: minimal Transfusion Required none Specimen none Grafts/Implants 28 cm permacath Complications none EVE VARELA MD Mar 24, 2019 16:58
[2019-03-24] MEDS: EPOETIN ALFA-EPBX (ESRD) 10,000 UNIT/ML VIAL SC SCH (17:42)
--- NOTE | 2019-03-24 17:49 | PN ---
Date/Time of Note Date/Time of Note DATE: 03/24/19 TIME: 17:46 Objective Vitals Vital Signs Date Temp Pulse Resp B/P (MAP) Pulse Ox O2 O2 Flow FiO2 Time Delivery Rate 03/24/19 98.5 71 20 158/72 95 Room Air 15:51 (100) 03/23/19 2.0 18:22 Intake and Output 03/23/19 03/23/19 03/24/19 1515:00 23:00 07:00 IntakeIntake Total 160 ml 500 ml OutputOutput Total 600 ml BalanceBalance 160 ml -100 ml Results Result Diagram: 03/24/19 0947 03/24/19 0948 Medications Medications Current Medications Vancomycin HCl (Vanco Iv Per Pharmacy) VANCOMYCIN PER PHARMACY PER PROTOCOL XX ; Start 03/23/19 at 17:30 Cefepime HCl 50 ml @ 100 mls/hr Q24H IVPB Last administered on 03/23/19at 20:29; Admin Dose 100 MLS/HR; Start 03/23/19 at 21:00 Sodium Chloride 1,000 ml @ 75 mls/hr [id number] IV Last administered on 03/23/19at 20:28; Admin Dose 75 MLS/HR; Start 03/23/19 at 17:25 IV Flush (NS 3 ml) 3 ml PER PROTOCOL IV ; Start 03/23/19 at 17:30 Ondansetron HCl (Zofran Inj) 4 mg Q6H PRN IV NAUSEA/VOMITING Last administered on 03/24/19at 04:37; Admin Dose 4 MG; Start 03/23/19 at 17:30 Acetaminophen (Tylenol Tab) 650 mg Q6H PRN PO .PAIN 1-3 OR TEMP; Start 03/23/19 at 17:30 Acetaminophen/ Hydrocodone Bitart ([place] (5/325)) 1 tab Q6H PRN PO .PAIN 4-6; Start 03/23/19 at 17:30 Morphine Sulfate (morphine) 2 mg Q4H PRN IV .PAIN 7-10 Last administered on 03/23/19at 20:23; Admin Dose 2 MG; Start 03/23/19 at 17:30 Pantoprazole (Protonix Tab) 40 mg DAILY@06 PO ; Start 03/24/19 at 06:00 Diagnostic Test (Pha) (Accu-Chek) 1 02 XX ; Start 03/24/19 at 02:00 Insulin Glargine (Lantus) 23 units DAILY@2000 SC Last administered on 03/23/19at 21:49; Admin Dose 23 UNITS; Start 03/23/19 at 20:00 Ferrous Sulfate (Ferrous Sulfate (Ec)) 325 mg BID PO Last administered on 03/23/19at 20:29; Admin Dose 325 MG; Start 03/23/19 at 21:00 Furosemide (Lasix) 40 mg BID PO Last administered on 03/23/19at 20:31; Admin Dose 40 MG; Start 03/23/19 at 21:00 Metoprolol Tartrate (Lopressor) 25 mg BID PO Last administered on 03/23/19at 20:30; Admin Dose 25 MG; Start 03/23/19 at 21:00 Multivit/Ca Carb/ B Cmplx/FA/Prenat (Radha-Grace) 1 tab DAILY PO ; Start 03/24/19 at 09:00 Thiamine HCl (Vitamin B1) 100 mg DAILY PO ; Start 03/24/19 at 09:00 Hydralazine HCl (Apresoline) 10 mg Q4H PRN IV sbp >160; Start 03/23/19 at 18:30 Cholecalciferol (Vitamin D) 2,000 unit DAILY PO ; Start 03/24/19 at 09:00 Atorvastatin Calcium (Lipitor) 40 mg HS PO Last administered on 03/23/19at 20:30; Admin Dose 40 MG; Start 03/23/19 at 21:00 Insulin Aspart (Novolog Insulin Pen) (Adult SC Insulin - Moder... Q6 SC Last administered on 03/24/19at 12:08; Admin Dose 2 UNIT; Start 03/24/19 at 12:00 Miscellaneous Information (*Rx Drug Level Order Reminder*) RANDOM VANCOMYCIN LEVEL ... 0500 ONCE XX ; Start 03/25/19 at 05:00; Stop 03/25/19 at 05:01 Epoetin Edouard-epbx (Retacrit (Esrd)) 10,000 unit MoWeFr@1700 SC ; Start 03/24/19 at 17:00 Atorvastatin Calcium (Lipitor) 10 mg HS PO ; Start 03/24/19 at 21:00 VTE Prophylaxis Risk score (from Nsg)>0 risk: 10 SCD applied (from Nsg): Yes Lines/Catheters IV Catheter Type: Montane[place] in Place: No Assessment/Plan Hospital Course Subjective Patient doing well, is okay with doing dialysis Objective Physical exam General: Patient is laying in bed and answers questions appropriately Mentation: Patient is alert and oriented 4, Head: Normocephalic atraumatic Eyes: EOMI, pupils reactive to light Neck: Supple, nontender, midline Respiratory: Clear to auscultation bilaterally Cardiovascular: regular rate, no obvious murmurs Gastrointestinal: non-tender to palpation, bowel sounds heard. Neurological: Moves all extremities spontaneously Musculoskeletal: Right lower extremity bandaged, open fracture Assessment and plan Right tib-fib open fracture -Broad-spectrum IV antibiotic -Orthopedic surgeon notified of open fracture, surgery on scheduled for tomorrow, n.p.o. after midnight -Infection disease consulted for antibiotic management -Cardiology consulted for cardiac needs before surgery -Nephrology needs to do hemodialysis before surgery, planning dialysis today Chronic kidney disease with likely near end-stage renal disease -Nephrology consulted -Patient agreeable for dialysis, permacath placed -Nephrology to order dialysis marleni Electrolyte derangement -Replete as needed -Nephrology on board moderate to severe anemia - secondary to hemorrhagic cause secondary to open fracture -2 more units packed RBC ordered, FFP ordered to prevent hemodilutional coagulopathy Peripheral neuropathy -Moderate to severe as patient has very little feeling in his right lower extremity and left lower extremity that is chronic Diabetes mellitus -Lantus and insulin sliding scale as per patient's home regimen Disposition -Orthopedic surgery recommendations appreciated, will likely need urgent surgery as soon as dialysis correct patient's electrolytes -Hemodialysis planned for tonight BRIANDA IZQUIERDO Mar 24, 2019 17:49
--- NOTE | 2019-03-24 17:56 | PREAC ---
Date/Time of Note Date/Time of Note DATE: 03/24/19 TIME: 17:52 Anesthesia Eval and Record Evaluation Time Pre-Procedure Interview DATE: 03/24/19 TIME: 17:52 Age 53 Sex male NPO: 8 hrs Preoperative diagnosis open right tib-fib fracture Planned procedure RIGHT IM TIBIAL NAILING Past Medical History Past Medical History: Includes Cardio: HTN Endo: Diabetes Neuro: Peripheral neuropathy Renal: CKD, ESRD on dialysis GI: Morbid obesity Heme: Anemia Surgery & Anesthesia Issues No known issue Meds Anticoagulation: No Beta Deandra within 24 hr: No Reason Beta Deandra not given: Pt. not on B-Deandra Reported Medications Insulin Glargine* (Lantus*) 100 Unit/Ml Soln, 22 UNIT SC QHS, #1 VIAL 03/23/19 Insulin Lispro (Humalog) 100 Unit/1 Ml Cartridge, 0 SQ SLIDING SCALE, EA WITH MEALS 03/23/19 Cholecalciferol (Vitamin D3) (Vitamin D-3) 2,000 Unit Tablet, 2000 UNIT PO DAILY, TAB 03/23/19 Thiamine* (Vitamin B-1*) 100 Mg Tablet, 100 MG PO DAILY, TAB 03/23/19 Furosemide* (Furosemide*) 40 Mg Tablet, 40 MG PO BID, TAB 03/23/19 Multivit/Ca Carb/B Cmplx/Fa* (Radha-Grace*) 1 Tab Tab, 1 TAB PO DAILY, TAB 03/23/19 Ferrous Sulfate* (Ferrous Sulfate*) 325 Mg Tabec, 325 MG PO BID, TAB 03/23/19 Metoprolol Tartrate* (Lopressor*) 25 Mg Tab, 25 MG PO BID, #60 TAB 03/23/19 Hydralazine Hcl* (Hydralazine Hcl*) 50 Mg Tab, 50 MG PO BID PRN for HTN, #60 TAB 03/23/19 Current Medications Vancomycin HCl (Vanco Iv Per Pharmacy) VANCOMYCIN PER PHARMACY PER PROTOCOL XX ; Start 03/23/19 at 17:30 Cefepime HCl 50 ml @ 100 mls/hr Q24H IVPB Last administered on 03/23/19at 20:29; Admin Dose 100 MLS/HR; Start 03/23/19 at 21:00 Sodium Chloride 1,000 ml @ 75 mls/hr [id number] IV Last administered on 03/23/19at 20:28; Admin Dose 75 MLS/HR; Start 03/23/19 at 17:25 IV Flush (NS 3 ml) 3 ml PER PROTOCOL IV ; Start 03/23/19 at 17:30 Ondansetron HCl (Zofran Inj) 4 mg Q6H PRN IV NAUSEA/VOMITING Last administered on 03/24/19at 04:37; Admin Dose 4 MG; Start 03/23/19 at 17:30 Acetaminophen (Tylenol Tab) 650 mg Q6H PRN PO .PAIN 1-3 OR TEMP; Start 03/23/19 at 17:30 Acetaminophen/ Hydrocodone Bitart ([place] (5/325)) 1 tab Q6H PRN PO .PAIN 4-6; Start 03/23/19 at 17:30 Morphine Sulfate (morphine) 2 mg Q4H PRN IV .PAIN 7-10 Last administered on 03/23/19at 20:23; Admin Dose 2 MG; Start 03/23/19 at 17:30 Pantoprazole (Protonix Tab) 40 mg DAILY@06 PO ; Start 03/24/19 at 06:00 Diagnostic Test (Pha) (Accu-Chek) 1 ea 02 XX ; Start 03/24/19 at 02:00 Insulin Glargine (Lantus) 23 units DAILY@2000 SC Last administered on 03/23/19at 21:49; Admin Dose 23 UNITS; Start 03/23/19 at 20:00 Ferrous Sulfate (Ferrous Sulfate (Ec)) 325 mg BID PO Last administered on 03/23/19at 20:29; Admin Dose 325 MG; Start 03/23/19 at 21:00 Furosemide (Lasix) 40 mg BID PO Last administered on 03/23/19at 20:31; Admin Dose 40 MG; Start 03/23/19 at 21:00 Metoprolol Tartrate (Lopressor) 25 mg BID PO Last administered on 03/23/19at 20:30; Admin Dose 25 MG; Start 03/23/19 at 21:00 Multivit/Ca Carb/ B Cmplx/FA/Prenat (Radha-Grace) 1 tab DAILY PO ; Start 03/24/19 at 09:00 Thiamine HCl (Vitamin B1) 100 mg DAILY PO ; Start 03/24/19 at 09:00 Hydralazine HCl (Apresoline) 10 mg Q4H PRN IV sbp >160; Start 03/23/19 at 18:30 Cholecalciferol (Vitamin D) 2,000 unit DAILY PO ; Start 03/24/19 at 09:00 Atorvastatin Calcium (Lipitor) 40 mg HS PO Last administered on 03/23/19at 20:30; Admin Dose 40 MG; Start 03/23/19 at 21:00 Insulin Aspart (Novolog Insulin Pen) (Adult SC Insulin - Moder... Q6 SC Last administered on 03/24/19at 17:49; Admin Dose 4 UNIT; Start 03/24/19 at 12:00 Miscellaneous Information (*Rx Drug Level Order Reminder*) RANDOM VANCOMYCIN LEVEL ... 0500 ONCE XX ; Start 03/25/19 at 05:00; Stop 03/25/19 at 05:01 Epoetin Edouard-epbx (Retacrit (Esrd)) 10,000 unit MoWeFr@1700 SC Last admini stered on 03/24/19at 17:42; Admin Dose 10,000 UNIT; Start 03/24/19 at 17:00 Atorvastatin Calcium (Lipitor) 10 mg HS PO ; Start 03/24/19 at 21:00 Meds reviewed: Yes Allergies Coded Allergies: No Known Allergy (Unverified , 03/23/19) Allergies Reviewed: Yes Labs/Studies Labs Reviewed: Reviewed by anesthesiologist (1 unit of PRBC given today (03/24/19) another unit of PRBC will be given during dialysis tonight - lab redraws are ordered for tomorrow ) Result Diagram: 03/24/19 0947 03/24/19 0948 Laboratory Tests 03/24/19 09:47 03/24/19 09:48 test: N/A Studies: ECG (SR), CXR (The lungs are clear of acute infiltrates, edema, ef fusions, or masses.. The cardiomediastinal silhouette is unremarkable. The osseous structures are intact.), 2D Echo (EF 605) Pre-procedure Exam Last vitals Vital Signs Date Temp Pulse Resp B/P (MAP) Pulse Ox O2 O2 Flow FiO2 Time Delivery Rate 03/24/19 98.5 71 20 158/72 95 Room Air 15:51 (100) 03/23/19 2.0 18:22 Airway: Adequate mouth opening Mallampati: Mallampati II Teeth: Normal Lung: Normal Heart: Normal ASA Physical Status ASA physical status: 4 Emergency: None Planned Anesthetic General/MAC: ETT Pre-operative Attestations Prior to commencing anesthesia and surgery, the patient was re-evaluated, there was verification of: *The patient's identity *The results of appropriate recent lab work and preoperative vital signs *The above evaluation not changing prior to induction *Anesthetic plan, risk benefits, alternative and complications discussed with patient/family; questions answered; patient/family understands, accepts and wishes to proceed. KOKI BONILLA Mar 24, 2019 17:56
--- NOTE | 2019-03-24 18:47 | PN ---
DATE: 03/24/2019 SUBJECTIVE: The patient is alert, feels good. Denies pain. No fevers overnight. LABORATORY DATA: WBC 8.2, platelets 137, neutrophils 77.4, hemoglobin 6.1. BUN 76, creatinine 7.96. ANTIMICROBIALS: The patient is on: 1. Cefepime. 2. Vancomycin. PHYSICAL EXAMINATION: GENERAL: This is a morbidly obese, well-developed, middle-aged, white man who is awake, in no distre ss. HEAD: Atraumatic, normocephalic. NECK: Supple. CHEST: Rise symmetrical. Breath sounds diminished to bases. HEART: S1, S2. ABDOMEN: Soft, bowel tones present. EXTREMITIES: Right lower extremity dressing intact. ASSESSMENT: 1. Open fracture of distal tibia and fibula, status post mechanical fall. 2. Acute renal failure, possibly on chronic disease. 3. Diabetes. 4. Obesity. 5. Hypertension. PLAN: The patient remains stable. He is on appropriate antibiotic regimen. Cardiology is on case f or cardiac clearance, pending ortho evaluation and follow renal recommendations. Dictated By: ANGELA LEMUS VERIFICATION REP for KO LOVE MD NI/NTS Conf#: [id number] DID#: [id number] CC: BRIANDA IZQUIERDO MD;*EndCC*
[2019-03-24] MEDS ORDERED: MANNITOL 25% 50 ML IV PRN (19:00)
[2019-03-24] MEDS: ATORVASTATIN 40 MG TAB PO SCH (22:06)
[2019-03-24] MEDS: ATORVASTATIN 10 MG TAB PO SCH (22:06)
[2019-03-24] MEDS: hydrALAzine 20 MG INJ IV PRN (22:07)
[2019-03-24] MEDS: HEPARIN 1000 UNITS/ML 10 ML INJ CATHETER SCH (22:39)
[2019-03-24] MEDS ORDERED: MAGNESIUM SULFATE 3 GM in DEXTROSE 5% 100 ML IVPB ONE (23:00)
[2019-03-24] MEDS: CEFEPIME 1GM/50 ML (PMX) 50 ML IVPB SCH (23:44)
[2019-03-24] MEDS: morphine 2 MG INJ IV PRN (23:55)
[2019-03-25] VITALS (26 sets, daily range): BP systolic 127–186; BP diastolic 50–89; PULSE 62–78; RESP 8–24
[2019-03-25] MEDS: Insulin NOVOLOG SS MODERATE Algorithm(NPO/TPN/ENTERAL FEEDS) SC SCH ×4 (00:07→23:44)
[2019-03-25] MEDS: INSULIN GLARGINE [LANTus] (100 UNITS/ML) SYG SC SCH ×2 (00:08→23:44)
--- NOTE | 2019-03-25 01:04 | CONS ---
DATE OF ADMISSION: 03/23/2019 DATE OF CONSULTATION: 03/24/2019 TYPE OF CONSULTATION: Vascular REFERRING PHYSICIAN: Dr. Brianda Toth REASON FOR CONSULTATION: Dialysis access. HISTORY OF PRESENT ILLNESS: This is a 53-year-old diabetic gentleman. He has severe peripheral neur opathy, anemia, and chronic kidney disease. He was getting out of his truck and he fell yesterday an d now has a tib-fib fracture on the right, it is an open fracture. He has had chronic kidney disease , but now has progressed to end-stage renal disease. His creatinine is 7.96. Potassium is 4.9. He is going to go for surgery tomorrow to fix the broken leg, so I was asked to place a Perm-A-Cath for hemodialysis. PAST MEDICAL HISTORY: Significant for diabetes, poorly controlled; severe peripheral neuropathy; chr onic kidney disease; anemia. He has gotten a couple units of blood. PAST SURGICAL HISTORY: Significant for drainage of multiple abscesses on his back and his buttocks. When he fell, when he broke the right leg, he also tore the nail off of the second toe on the right f oot, so he has an exposed nail bed there. MEDICATIONS: Currently consist of: 1. Epogen. 2. Insulin. 3. Multivitamin. 4. Thiamine. 5. Vitamin D. 6. Protonix. 7. Cefepime. 8. Iron. 9. Lasix. 10. Lopressor. 11. Lipitor. 12. Lantus. 13. Vancomycin. 14. Apresoline. ALLERGIES: NO KNOWN DRUG ALLERGIES. SOCIAL HISTORY: He is a nonsmoker. He does not drink or use any illicit drugs. FAMILY HISTORY: Noncontributory. REVIEW OF SYSTEMS: He denies any chest pain, shortness of breath. No nausea, vomiting, diarrhea. Tanner russ has noted a lot of edema in his legs for the last several months, but other than that has no other specific complaints. He has such severe peripheral neuropathy he does not have even have any pain in the leg where the ankle is broken. PHYSICAL EXAMINATION GENERAL: He is a middle-aged gentleman. He speaks Indonesian fluently. VITAL SIGNS: He has been afebrile. Blood pressure is 158/72, heart rate 71, respiratory is 20. He is 95% sat on room air. He has 2+ radial, brachial, carotid pulses bilaterally. He is right-handed. I do not see any superficial veins in either arm. He has no lines in the neck or chest wall. LUNGS: Clear. HEART: Regular rate and rhythm. ABDOMEN: Obese, soft, nontender, nondistended. EXTREMITIES: He has 2+ femoral and popliteal pulses bilaterally. Right foot is wrapped up and it is casted and I did not remove it. I did not palpate the pulses in the right foot but the toes look wa rm and pink. He does have the second toe on the right foot, the nail has been avulsed and it looks l arlene there may even be bone exposed at the tip of the phalanx. On the left, he has 2+ DP and PT pulse . No wounds on the left. He has 2+ edema in the left foot and calf. The right foot, again, is wrap ped. LABORATORY DATA: His creatinine is almost 8, potassium is okay. He is anemic. It has gotten 2 unit s of blood. Platelet count is 137, so a little low, white count is normal. IMPRESSION: Acute on chronic renal failure. It looks like he is probably going to need long-term he modialysis. I am going to place a Perm-A-Cath now so he can dialyze tonight before his surgery michael diaz to fix the leg and I vein map him at some point and plan for residential hemodialysis access with a fistula, and I discussed that with him as well. Dictated By: EVE LÓPEZ/FELICIA Conf#: [id number] DID#: [id number] CC: BRIANDA TOTH MD; KO LOVE MD; MÓNICA DRAKE MD; KITTY EID DO;*EndCC*
[2019-03-25] MEDS: ACCU-CHEK XX SCH (02:00)
[2019-03-25] MEDS ORDERED: DIPHENHYDRAMINE 50 MG INJ IV ONE (02:30)
[2019-03-25] MEDS ORDERED: LORAZEPAM 2 MG INJ IV ONE (02:30)
--- NOTE | 2019-03-25 03:18 | OPR ---
DATE OF OPERATION: 03/24/2019 PREOPERATIVE DIAGNOSIS: End-stage renal disease. POSTOPERATIVE DIAGNOSIS: End-stage renal disease. PROCEDURE PERFORMED: Insertion of right internal jugular vein tunneled hemodialysis catheter using u ltrasound and fluoroscopic guidance. SURGEON: Eve Flood MD. ANESTHESIA: Local anesthesia. ESTIMATED BLOOD LOSS: Minimal. COMPLICATIONS: No intraprocedural complications. INDICATIONS: This is a 53-year-old diabetic hypertensive gentleman with end-stage renal disease, who needs relatively urgent dialysis. He is scheduled for orthopedic surgery tomorrow from a broken ank le. DESCRIPTION OF PROCEDURE: The patient was brought to the botany laboratory assistant, placed on the table in supine pos ition. Right neck and chest wall were prepped and draped in the usual sterile fashion. I began by u sing ultrasound to identify the right internal jugular vein. It was easily compressible and had no f illing defects. I infiltrated over the vein at the base of the right neck using about 10 mL of 1% Xy locaine. I then under ultrasound guidance, advanced a micropuncture needle into the right internal j ugular vein, advanced an 0.018 wire through the needle and into the vein then a micropuncture sheath was advanced over the wire into the vein. I then advanced an 0.035 Amplatz wire down through the hea rt and into the inferior vena cava, removed the micropuncture sheath left the wire in place. I made a small incision over the wire. I then anesthetized the tract down to the right anterior chest wall with another 5 to 10 mL of lidocaine, made a small incision below the clavicle. I then tunneled a 28 cm tunneled hemodialysis catheter between the 2 incisions using a metal tunneler. I then dilated th e tract over the wire and placed a large peel away sheath over the wire and into the right atrium. I removed the wire and the obturator and placed the end of the catheter through the peel-away sheath a nd then peeled the sheath away leaving the tip of the catheter in the right atrium. There was good b ackflow from both ports. They both flushed easily. I left 2.2 mL of 1000 unit per mL heparin in eac h port, anchored the catheter to the skin using 3-0 nylon suture. 4-0 Monocryl suture was used to cl ose the puncture site in the neck. Sterile dressings were applied. The patient was then transferred to his room in stable condition. The catheter was in good position with the tips in the right atriu m, it is ready to use. Dictated By: EVE LÓPEZ/FELICIA Conf#: [id number] DID#: [id number] CC: KITTY EID DO; BRIANDA IZQUIERDO MD;*EndCC*
[2019-03-25] MEDS: PANTOPRAZOLE (EC) 40 MG TAB PO SCH (06:00)
--- NOTE | 2019-03-25 06:29 | CONS ---
DATE OF ADMISSION: 03/23/2019 DATE OF CONSULTATION: 03/24/2019 HISTORY OF PRESENT ILLNESS: The patient is a 53-year-old male with a longstanding history of diabete s mellitus along with the diabetic neuropathy who was admitted on 03/23/2019 when he was brought into the emergency room because of the open wound with deformity involving his right leg. According to t he patient, he was trying to get into a car when he had sustained a twisting injury to his right leg that made him fall down on the ground. Following the fall, there obviously was a painful deformity i nvolving the right leg along with the bleeding open wound. PAST MEDICAL HISTORY: In addition to longstanding diabetes with diabetic neuropathy, he also has hyp ertension and chronic kidney disease. PHYSICAL EXAMINATION: My examination revealed a 53-year-old male who is not in any acute distress at this time. The right lower extremity was already immobilized in a posterior splint. The inspection of the wound after removing the tight pressure dressings revealed a laceration of the anterior walker of the right lower leg. It was not heavily contaminated and it was not bleeding at the time of my ev aluation. IMAGING: X-rays of the right leg revealed an obvious fracture involving the distal shaft of the righ t tibia, along with the fracture of the fibula at the same level. It was also noted that there was a fracture involving the fibular neck on the same extremity. DIAGNOSTIC IMPRESSION: Fractures involving the distal shaft of the tibia and fibula along with the f racture of the fibular neck of the right lower extremity, open. TREATMENT PLAN: To surgery as soon as he can be medically cleared for surgery including dialysis and carry out the open irrigation and debridement followed by cast immobilization. If it is necessary, an intramedullary nailing of the right leg can be carried out as a delayed procedure to minimize the possibility of infection. Dictated By: JOSEPH MORRIS MD IK/NTS Conf#: [id number] DID#: [id number] CC: BRIANDA IZQUIERDO MD;*EndCC*
--- NOTE | 2019-03-25 07:23 | PN ---
DATE: 03/25/2019 SUBJECTIVE: The patient had hemodialysis yesterday, tolerated well. No nausea, no vomiting. The pa tient is pending possible surgery today. No other events noted. OBJECTIVE: VITAL SIGNS: Blood pressure is 144/65, respirations 20, pulse 76, temperature 98.1. HEENT: Head is normocephalic. NECK: Supple. HEART: Regular rate. LUNGS: Show diminished breath sounds at the base. ABDOMEN: Soft, nontender to palpation without rebound or guarding. EXTREMITIES: Negative for clubbing, cyanosis. Positive edema. Positive dressing on right lower ext remity. DERMATOLOGIC: No rashes. MUSCULOSKELETAL: No joint effusion. NEUROLOGIC: No focal deficits. MEDICATIONS: Reviewed. LABORATORY DATA: Has been reviewed. IMAGING STUDIES: Have been reviewed. ASSESSMENT AND PLAN: 1. Renal failure. Etiology is possible chronic kidney disease with progression towards end-stage re nal disease versus acute on chronic kidney injury. The patient was initiated on hemodialysis due to uremic symptoms and significant renal failure. The patient tolerated dialysis well. Anticipate elaine y dialysis for solute clearance and volume removal. The patient is also undergoing a serological wor kup to see if there is any other secondary causes for renal failure. Anticipate outpatient hemodialy sis will likely need to be set up. 2. Hyperkalemia secondary to chronic kidney disease, metabolic acidosis, improved. Continue dialysi s on low potassium bath. 3. Metabolic acidosis, improving. Continue hemodialysis. 4. Anemia. The patient is status post blood transfusion. Will continue Epogen. 5. Mineral bone disorder. Will monitor calcium and phosphorus levels, PTH levels, vitamin D levels. 6. Status post fall with right tibia-fibula fracture. Continue to monitor. 7. Diabetes. Continue current insulin regimen. 8. Peripheral neuropathy. Continue current medical management. Dictated By: KITTY EID DO NR/NTS Conf#: [id number] DID#: [id number] CC: BRIANDA IZQUIERDO MD;*EndCC*
[2019-03-25] MEDS: METOPROLOL 25 MG TAB PO SCH ×2 (09:00→23:21)
[2019-03-25] MEDS: FERROUS SULFATE (EC) 325 MG TAB PO SCH ×2 (09:00→23:17)
[2019-03-25] MEDS: THIAMINE 100 MG TAB PO SCH (09:00)
[2019-03-25] MEDS: FUROSEMIDE 40 MG TAB PO SCH ×2 (09:00→23:24)
[2019-03-25] MEDS: MULTIVIT/CA CARB/B CMPLX/FA TAB PO SCH (09:00)
[2019-03-25] MEDS: CHOLECALCIFEROL 2,000 UNIT CAP PO SCH (09:00)
[2019-03-25] MEDS: SOD CHLORIDE 0.45% 1,000 ML IV SCH ×2 (09:25→22:45)
[2019-03-25] MEDS: hydrALAzine 20 MG INJ IV PRN (11:01)
--- NOTE | 2019-03-25 14:22 | PN ---
Date/Time of Note Date/Time of Note DATE: 03/25/19 TIME: 14:21 Objective Vitals Vital Signs Date Temp Pulse Resp B/P (MAP) Pulse Ox O2 O2 Flow FiO2 Time Delivery Rate 03/25/19 98.2 74 18 166/78 96 11:36 (107) 03/25/19 Room Air 04:00 03/23/19 2.0 18:22 Intake and Output 03/24/19 03/24/19 03/25/19 1515:00 23:00 07:00 IntakeIntake Total 400 ml 970 ml OutputOutput Total 3100 ml 1000 ml BalanceBalance 400 ml -2130 ml -1000 ml Results Result Diagram: 03/25/19 0441 03/25/19 0441 Medications Medications Current Medications Vancomycin HCl (Vanco Iv Per Pharmacy) VANCOMYCIN PER PHARMACY PER PROTOCOL XX ; Start 03/23/19 at 17:30 Cefepime HCl 50 ml @ 100 mls/hr Q24H IVPB Last administered on 03/24/19at 23:44; Admin Dose 100 MLS/HR; Start 03/23/19 at 21:00 Sodium Chloride 1,000 ml @ 75 mls/hr [id number] IV Last administered on 03/23/19at 20:28; Admin Dose 75 MLS/HR; Start 03/23/19 at 17:25 IV Flush (NS 3 ml) 3 ml PER PROTOCOL IV ; Start 03/23/19 at 17:30 Ondansetron HCl (Zofran Inj) 4 mg Q6H PRN IV NAUSEA/VOMITING Last administered on 03/24/19at 04:37; Admin Dose 4 MG; Start 03/23/19 at 17:30 Acetaminophen (Tylenol Tab) 650 mg Q6H PRN PO .PAIN 1-3 OR TEMP; Start 03/23/19 at 17:30 Acetaminophen/ Hydrocodone Bitart ([place] (5/325)) 1 tab Q6H PRN PO .PAIN 4-6; Start 03/23/19 at 17:30 Morphine Sulfate (morphine) 2 mg Q4H PRN IV .PAIN 7-10 Last administered on 03/24/19at 23:55; Admin Dose 2 MG; Start 03/23/19 at 17:30 Pantoprazole (Protonix Tab) 40 mg DAILY@06 PO ; Start 03/24/19 at 06:00 Diagnostic Test (Pha) (Accu-Chek) 1 ea 02 XX ; Start 03/24/19 at 02:00 Insulin Glargine (Lantus) 23 units DAILY@2000 SC Last administered on 03/25/19at 00:08; Admin Dose 23 UNITS; Start 03/23/19 at 20:00 Ferrous Sulfate (Ferrous Sulfate (Ec)) 325 mg BID PO Last administered on 03/24/19at 22:11; Admin Dose 325 MG; Start 03/23/19 at 21:00 Furosemide (Lasix) 40 mg BID PO Last administered on 03/24/19at 22:06; Admin Dose 40 MG; Start 03/23/19 at 21:00 Metoprolol Tartrate (Lopressor) 25 mg BID PO Last administered on 03/24/19at 22:07; Admin Dose 25 MG; Start 03/23/19 at 21:00 Multivit/Ca Carb/ B Cmplx/FA/Prenat (Radha-Grace) 1 tab DAILY PO ; Start 03/24/19 at 09:00 Thiamine HCl (Vitamin B1) 100 mg DAILY PO ; Start 03/24/19 at 09:00 Hydralazine HCl (Apresoline) 10 mg Q4H PRN IV sbp >160 Last administered on 03/25/19at 11:01; Admin Dose 10 MG; Start 03/23/19 at 18:30 Cholecalciferol (Vitamin D) 2,000 unit DAILY PO ; Start 03/24/19 at 09:00 Atorvastatin Calcium (Lipitor) 40 mg HS PO Last administered on 03/24/19at 22:06; Admin Dose 40 MG; Start 03/23/19 at 21:00 Insulin Aspart (Novolog Insulin Pen) (Adult SC Insulin - Moder... Q6 SC Last administered on 03/25/19at 06:07; Admin Dose 4 UNIT; Start 03/24/19 at 12:00 Epoetin Edouard-epbx (Retacrit (Esrd)) 10,000 unit MoWeFr@1700 SC Last administere d on 03/24/19at 17:42; Admin Dose 10,000 UNIT; Start 03/24/19 at 17:00 Atorvastatin Calcium (Lipitor) 10 mg HS PO Last administered on 03/24/19at 22:06; Admin Dose 10 MG; Start 03/24/19 at 21:00 Heparin Sodium (Porcine) (Heparin (1000 Units/ml)) 4,500 unit AFTER DIALYSIS CATHETER Last administered on 03/24/19at 22:39; Admin Dose 4,500 UNIT; Start 03/24/19 at 19:00 Mannitol 50 ml @ 50 mls/5 min WITH DIALYSIS PRN IV DISEQUILIBRIUM SYNDROME PPX; Start 03/24/19 at 19:00 Vancomycin HCl 250 ml @ 125 mls/hr ONCE IVPB ; Start 03/25/19 at 18:00; Stop 03/25/19 at 23:59 VTE Prophylaxis Risk score (from [facility] [place])>0 risk: 4 SCD applied (from [facility] [place]): No SCD contraindication: other Lines/Catheters IV Catheter Type: Montanez in Place: No Assessment/Plan Hospital Course Subjective Patient doing well Objective Physical exam General: Patient is laying in bed and answers questions appropriately Mentation: Patient is alert and oriented 4, Head: Normocephalic atraumatic Eyes: EOMI, pupils reactive to light Neck: Supple, nontender, midline Respiratory: Clear to auscultation bilaterally Cardiovascular: regular rate, no obvious murmurs Gastrointestinal: non-tender to palpation, bowel sounds heard. Neurological: Moves all extremities spontaneously Musculoskeletal: Right lower extremity bandaged, open fracture Assessment and plan Right tib-fib open fracture -Broad-spectrum IV antibiotic -Orthopedic surgeon notified of open fracture, surgery on scheduled for to ninoska n.p.oNettie after midnight -Infection disease consulted for antibiotic management -Cardiology consulted for cardiac needs before surgery -Nephrology needs to do hemodialysis before surgery, planning dialysis today Chronic kidney disease with likely near end-stage renal disease -Nephrology consulted -Patient agreeable for dialysis, permacath placed -Nephrology to order dialysis Electrolyte derangement -Replete as needed -Nephrology on board moderate to severe anemia - secondary to hemorrhagic cause secondary to open fracture -transfuse as needed Peripheral neuropathy -Moderate to severe as patient has very little feeling in his right lower extremity and left lower extremity that is chronic Diabetes mellitus -Lantus and insulin sliding scale as per patient's home regimen Disposition -surgery today planned BRIANDA IZQUIERDO Mar 25, 2019 14:22
[2019-03-25] MEDS ORDERED: BUPIVACAINE 0.25% (MPF) 30 ML INJ ONE (14:51)
[2019-03-25] MEDS ORDERED: POLYMYXIN/BACITRACIN 1L IRRIG ONE (14:52)
--- NOTE | 2019-03-25 15:19 | HPN ---
Date/Time of Note Date/Time of Note DATE: 03/25/19 TIME: 15:18 Interval H&P Admission Note Pt. seen H&P reviewed: No system changes SONDRA MORRIS MD Mar 25, 2019 15:19
[2019-03-25] MEDS ORDERED: SUCCINYLCHOLINE CHLORIDE 100 MG/5 ML SYG IV ONE (15:22)
[2019-03-25] MEDS ORDERED: DESFLURANE 15 MIN ONE (15:22)
[2019-03-25] MEDS ORDERED: ROCURONIUM 50 MG INJ ONE (15:22)
[2019-03-25] MEDS ORDERED: PROPOFOL 100 ML ONE (15:23)
[2019-03-25] MEDS ORDERED: CEFAZOLIN 1 GM INJ ONE (15:23)
[2019-03-25] MEDS ORDERED: ROPIVACAINE 0.5 % 30 ML VIAL ONE (15:23)
[2019-03-25] MEDS ORDERED: morphine SULFATE/PF (10 MG/10 ML) INJ ONE (15:23)
[2019-03-25] MEDS ORDERED: MIDAZOLAM 1 MG/ML 2 ML INJ ONE (15:23)
--- NOTE | 2019-03-25 15:41 | CONS ---
Assessment/Plan Assessment/Plan Hospital Course (Demo Recall) SUBJECTIVE: Patient is alert looks comfortable no fevers overnight. He has a right IJ Benjy catheter placed yesterday and was dialyzed yesterday he is awaiting for surgery today ANTIMICROBIALS: 1. Cefepime. 2. Vancomycin. PHYSICAL EXAMINATION: GENERAL: This is a morbidly obese, well-developed, middle-aged, white man who is awake, in no distress. HEAD: Atraumatic, normocephalic. NECK: Supple. CHEST: Rise symmetrical. Breath sounds diminished to bases. HEART: S1, S2. ABDOMEN: Soft, bowel tones present. EXTREMITIES: Right lower extremity dressing intact. ASSESSMENT: 1. Open fracture of distal tibia and fibula, status post mechanical fall. 2. Acute renal failure, possibly on chronic disease. 3. Diabetes. 4. Obesity. 5. Hypertension. PLAN: The patient remains stable. Change Cefepime to Rocephin, pending surgical intervention Consultation Date/Type/Reason Admit Date/Time Mar 23, 2019 at 16:53 Initial Consult Date 03/23/19 Type of Consult id Requesting Provider: BRIANDA IZQUIERDO Date/Time of Note DATE: 03/25/19 TIME: 15:39 Exam/Review of Systems Exam Vitals Vital Signs Date Temp Pulse Resp B/P (MAP) Pulse Ox O2 O2 Flow FiO2 Time Delivery Rate 03/25/19 98.2 74 18 166/78 96 11:36 (107) 03/25/19 Room Air 04:00 03/23/19 2.0 18:22 Intake and Output 03/24/19 03/24/19 03/25/19 1515:00 23:00 07:00 IntakeIntake Total 400 ml 970 ml OutputOutput Total 3100 ml 1000 ml BalanceBalance 400 ml -2130 ml -1000 ml Results Result Diagram: 03/25/19 0441 03/25/19 0441 Results 24hrs Laboratory Tests Test 03/24/19 17:29 03/24/19 23:43 03/25/19 04:41 03/25/19 05:59 Bedside Glucose 186 181 187 White Blood Count 8.7 Red Blood Count 2.53 L Hemoglobin 7.4 #L Hematocrit 22.6 L Mean Corpuscular 89.3 Volume Mean Corpuscular 29.2 Hemoglobin Mean Corpuscular 32.7 Hemoglobin Concent Red Cell 14.3 Distribution Width Platelet Count 125 L Mean Platelet 11.9 H Volume Immature 0.700 H Granulocytes % Neutrophils % 81.1 H Lymphocytes % 4.6 L Monocytes % 11.4 H Eosinophils % 1.7 Basophils % 0.5 Nucleated Red 0.0 Blood Cells % Immature 0.060 H Granulocytes # Neutrophils # 7.1 Lymphocytes # 0.4 L Monocytes # 1.0 H Eosinophils # 0.2 Basophils # 0.0 Nucleated Red 0.0 Blood Cells # Sodium Level 141 Potassium Level 4.4 Chloride Level 113 H Carbon Dioxide 18 L Level Anion Gap 10 Blood Urea 62 H Nitrogen Creatinine 6.28 H Est Glomerular 9 L Filtrat Rate mL/min Glucose Level 148 Calcium Level 6.4 L Phosphorus Level 4.8 Magnesium Level 2.1 Random Vancomycin 12.7 Level Test 03/25/19 07:31 03/25/19 12:22 Lab Scanned BLOOD TRANSFUSION Report Bedside Glucose 118 Medications Medication Current Medications Vancomycin HCl (Vanco Iv Per Pharmacy) VANCOMYCIN PER PHARMACY PER PROTOCOL XX ; Start 03/23/19 at 17:30 Cefepime HCl 50 ml @ 100 mls/hr Q24H IVPB Last administered on 03/24/19at 23:44; Admin Dose 100 MLS/HR; Start 03/23/19 at 21:00 Sodium Chloride 1,000 ml @ 75 mls/hr [id number] IV Last administered on 03/23/19at 20:28; Admin Dose 75 MLS/HR; Start 03/23/19 at 17:25 IV Flush (NS 3 ml) 3 ml PER PROTOCOL IV ; Start 03/23/19 at 17:30 Ondansetron HCl (Zofran Inj) 4 mg Q6H PRN IV NAUSEA/VOMITING Last administered on 03/24/19at 04:37; Admin Dose 4 MG; Start 03/23/19 at 17:30 Acetaminophen (Tylenol Tab) 650 mg Q6H PRN PO .PAIN 1-3 OR TEMP; Start 03/23/19 at 17:30 Acetaminophen/ Hydrocodone Bitart ([place] (5/325)) 1 tab Q6H PRN PO .PAIN 4-6; Start 03/23/19 at 17:30 Morphine Sulfate (morphine) 2 mg Q4H PRN IV .PAIN 7-10 Last administered on 03/24/19at 23:55; Admin Dose 2 MG; Start 03/23/19 at 17:30 Pantoprazole (Protonix Tab) 40 mg DAILY@06 PO ; Start 03/24/19 at 06:00 Diagnostic Test (Pha) (Accu-Chek) 1 ea 02 XX ; Start 03/24/19 at 02:00 Insulin Glargine (Lantus) 23 units DAILY@2000 SC Last administered on 03/25/19at 00:08; Admin Dose 23 UNITS; Start 03/23/19 at 20:00 Ferrous Sulfate (Ferrous Sulfate (Ec)) 325 mg BID PO Last administered on 03/24/19at 22:11; Admin Dose 325 MG; Start 03/23/19 at 21:00 Furosemide (Lasix) 40 mg BID PO Last administered on 03/24/19at 22:06; Admin Dose 40 MG; Start 03/23/19 at 21:00 Metoprolol Tartrate (Lopressor) 25 mg BID PO Last administered on 03/24/19at 22:07; Admin Dose 25 MG; Start 03/23/19 at 21:00 Multivit/Ca Carb/ B Cmplx/FA/Prenat (Radha-Grace) 1 tab DAILY PO ; Start 03/24/19 at 09:00 Thiamine HCl (Vitamin B1) 100 mg DAILY PO ; Start 03/24/19 at 09:00 Hydralazine HCl (Apresoline) 10 mg Q4H PRN IV sbp >160 Last administered on 03/25/19at 11:01; Admin Dose 10 MG; Start 03/23/19 at 18:30 Cholecalciferol (Vitamin D) 2,000 unit DAILY PO ; Start 03/24/19 at 09:00 Atorvastatin Calcium (Lipitor) 40 mg HS PO Last administered on 03/24/19at 22:06; Admin Dose 40 MG; Start 03/23/19 at 21:00 Insulin Aspart (Novolog Insulin Pen) (Adult SC Insulin - Moder... Q6 SC Last administered on 03/25/19at 06:07; Admin Dose 4 UNIT; Start 03/24/19 at 12:00 Epoetin Edouard-epbx (Retacrit (Esrd)) 10,000 unit MoWeFr@1700 SC Last administered on 03/24/19at 17:42; Admin Dose 10,000 UNIT; Start 03/24/19 at 17:00 Atorvastatin Calcium (Lipitor) 10 mg HS PO Last administered on 03/24/19at 22:06; Admin Dose 10 MG; Start 03/24/19 at 21:00 Heparin Sodium (Porcine) (Heparin (1000 Units/ml)) 4,500 unit AFTER DIALYSIS CATHETER Last administered on 03/24/19at 22:39; Admin Dose 4,500 UNIT; Start 03/24/19 at 19:00 Mannitol 50 ml @ 50 mls/5 min WITH DIALYSIS PRN IV DISEQUILIBRIUM SYNDROME PPX; Start 03/24/19 at 19:00 Vancomycin HCl 250 ml @ 125 mls/hr ONCE IVPB ; Start 03/25/19 at 18:00; Stop 03/25/19 at 23:59 ANGELA LEMUS NP Mar 25, 2019 15:41
[2019-03-25] MEDS ORDERED: BACITRACIN 50000 UNITS INJ ONE (15:49)
[2019-03-25] MEDS ORDERED: VANCOMYCIN 1 GM INJ ONE ×2 (15:51→15:57)
[2019-03-25] MEDS ORDERED: POLYMYXIN B 500000 UNIT INJ ONE (15:52)
[2019-03-25] MEDS ORDERED: CEFTRIAXONE 1 GM/50 ML (PMX) 50 ML IVPB SCH (16:00)
[2019-03-25] MEDS ORDERED: VANCOMYCIN 1 GM 250 ML IVPB SCH (18:00)
[2019-03-25] MEDS ORDERED: SUGAMMADEX SODIUM 200 MG/2 ML VIAL IV ONE (18:14)
[2019-03-25] MEDS ORDERED: ONDANSETRON 4 MG INJ ONE (18:18)
[2019-03-25] MEDS ORDERED: METOCLOPRAMIDE 10 MG INJ ONE (18:18)
[2019-03-25] MEDS ORDERED: DEXAMETHASONE 4 MG/ML 5 ML INJ ONE (18:18)
[2019-03-25] MEDS ORDERED: NALBUPHINE HCL (10 MG/1 ML) INJ IV PRN (18:30)
[2019-03-25] MEDS ORDERED: EPHEDrine 25 MG/5 ML SYG IV PRN (18:30)
[2019-03-25] MEDS ORDERED: LABETALOL HCL 20MG INJ IV PRN (18:30)
[2019-03-25] MEDS ORDERED: HYDROCODONE/APAP (5/325) TAB PO PRN (18:30)
[2019-03-25] MEDS ORDERED: METOCLOPRAMIDE 10 MG INJ IV PRN (18:30)
[2019-03-25] MEDS ORDERED: HYDROmorphONE 0.5 MG/0.5 ML SYG IV PRN ×2 (18:30)
[2019-03-25] MEDS ORDERED: NALOXONE (0.4 MG/ML) INJ IV PRN (18:30)
[2019-03-25] MEDS ORDERED: HYDROmorphONE 1 MG/5 ML IV SYRINGE IV PRN ×2 (18:30)
[2019-03-25] MEDS ORDERED: hydrALAzine 20 MG INJ IV PRN (18:30)
[2019-03-25] MEDS ORDERED: FENTAnyl 50 MCG/ML VIAL IV PRN ×2 (18:30)
[2019-03-25] MEDS ORDERED: ACETAMINOPHEN 500 MG TAB PO PRN (18:30)
[2019-03-25] MEDS ORDERED: ONDANSETRON 4 MG INJ IV PRN ×2 (18:30)
[2019-03-25] MEDS ORDERED: OXYCODONE/ACETAMINOPHEN (5/325) TAB PO PRN (18:30)
[2019-03-25] MEDS ORDERED: MEPERIDINE 25 MG INJ IV PRN (18:30)
[2019-03-25] MEDS ORDERED: morphine 2 MG INJ IV PRN ×2 (18:30)
[2019-03-25] MEDS ORDERED: DIPHENHYDRAMINE 50 MG INJ IV PRN ×2 (18:30)
--- NOTE | 2019-03-25 18:35 | PAC ---
Date/Time of Note Date/Time of Note DATE: 03/25/19 TIME: 18:35 Post-Anesthesia Notes Post-Anesthesia Note Last documented vital signs Vital Signs Date Temp Pulse Resp B/P (MAP) Pulse Ox O2 O2 Flow FiO2 Time Delivery Rate 03/25/19 98.2 74 18 166/78 96 11:36 (107) 03/25/19 Room Air 04:00 03/23/19 99.1 2.0 18:22 Activity: WNL Respiratory function: WNL Cardiovascular function: WNL Mental status: Baseline Pain reasonably controlled: Yes Hydration appropriate: Yes Nausea/Vomiting absent: Yes GRETCHEN SHARP MD Mar 25, 2019 18:35
[2019-03-25] MEDS ORDERED: CEFAZOLIN 1 GM/50 ML (PMX) 50 ML IVPB SCH (19:00)
[2019-03-25] MEDS ORDERED: morphine 4 MG/ML VIAL IV PRN (19:00)
--- NOTE | 2019-03-25 19:11 | SIPON ---
Date/Time of Note Date/Time of Note DATE: 03/25/19 TIME: 19:01 Operative Report Preoperative Diagnosis open fracture tibia and fibula right leg Postoperative Diagnosis same Operation/Procedure Performed open irrigation and debridment of the open fracture of tibia. open reduction of tibia fracture and immobilizationin a cast using pins plaster technique,right leg Surgeon see signature line topographical field assistant none Anesthesia: general Estimated blood loss: 10 - 50 ml's Transfusion Required none Specimen none Grafts/Implants none Complications none SONDRA MORRIS MD Mar 25, 2019 19:11
[2019-03-25] MEDS ORDERED: hydrALAzine 20 MG INJ ONE (19:24)
[2019-03-25] MEDS ORDERED: ENOXAPARIN 30 MG/0.3 ML SYG SC SCH (19:30)
[2019-03-25] MEDS ORDERED: LABETALOL HCL 20MG INJ ONE (19:48)
[2019-03-25] MEDS ORDERED: CEFAZOLIN 1 GM/50 ML (PMX) 50 ML IVPB ONE (19:58)
--- NOTE | 2019-03-25 20:55 | RADRPT ---
Vent Rate: 63 bpm RR Interval: [address] Interval: 181 msec QRS Duration: 84 msec QT Interval: 493 msec QTC Interval: 506 msec P-R-T [place]: 67 - 38 - 46 degrees Sinus rhythm...normal P axis, V-rate 50- 99 Prolonged QT interval...QTc >500mS Electronically Signed By: Kristian Kimbrough
[2019-03-25] MEDS: ATORVASTATIN 40 MG TAB PO SCH (23:17)
[2019-03-25] MEDS: ATORVASTATIN 10 MG TAB PO SCH (23:17)
[2019-03-25] MEDS: SOD CHLORIDE 0.9% 1,000 ML IV SCH (23:33)
[2019-03-26] VITALS (19 sets, daily range): BP systolic 136–216; BP diastolic 64–98; PULSE 60–79; RESP 16–20
[2019-03-26] MEDS: hydrALAzine 20 MG INJ IV PRN ×4 (00:48→21:37)
[2019-03-26] MEDS: ACCU-CHEK XX SCH (02:00)
[2019-03-26] MEDS: SOD CHLORIDE 0.9% 1,000 ML IV SCH ×2 (04:37→08:11)
[2019-03-26] MEDS: PANTOPRAZOLE (EC) 40 MG TAB PO SCH (05:14)
--- NOTE | 2019-03-26 05:19 | OPR ---
DATE OF OPERATION: 03/25/2019 PREOPERATIVE DIAGNOSIS: Open fracture involving the tibia and fibula of the right leg. POSTOPERATIVE DIAGNOSIS: Open fracture involving the tibia and fibula of the right leg. PROCEDURES PERFORMED: 1. Open irrigation and debridement of the open fracture of the right tibia. 2. Open reduction of the fracture involving the distal tibia. 3. Immobilization of the right lower extremity in a short leg cast using pins and plaster technique. ANESTHESIA: General anesthesia. SURGEON: Joseph Morris MD. PROCEDURE AND FINDINGS: Intraoperatively, the patient lesion from the operating table. A usual prep and drape was carried out exposing the right leg. The open wound was explored, debrided, and irriga tamela with forceful irrigation system. The fracture was then reduced under direct vision and this right lower extremity was then placed on t he traction table. Using a Steinmann pin, I placed over the heel using a traction board after perfor ramirez, we had satisfactory alignment, and after placing the percutaneous Steinmann pin through the mid dle of the tibia and calcaneus. Attention was then directed to the open wound, and then again after repeated irrigation, the closure of the incision was carried out. Prior to the closure, vancomycin p owder was scattered in the open wound. Again after closure and after confirming acceptable alignment , the entire right lower extremity was immobilized in a short leg cast incorporating the proximal and distal pin. The patient tolerated the entire procedure very well and the postop x-ray revealed acceptable alignme nt of the fracture. Dictated By: JOSEPH MORRIS MD IK/NTS Conf#: [id number] DID#: [id number]
[2019-03-26] MEDS: Insulin NOVOLOG SS MODERATE Algorithm(NPO/TPN/ENTERAL FEEDS) SC SCH ×2 (05:44)
[2019-03-26] MEDS: Insulin NOVOLOG SS MODERATE Algorithm (SS with meals and bedtime) SC SCH ×4 (08:00→21:19)
[2019-03-26] MEDS: MULTIVIT/CA CARB/B CMPLX/FA TAB PO SCH (08:12)
[2019-03-26] MEDS: FERROUS SULFATE (EC) 325 MG TAB PO SCH ×2 (08:13→21:01)
[2019-03-26] MEDS: CHOLECALCIFEROL 2,000 UNIT CAP PO SCH (08:13)
[2019-03-26] MEDS: THIAMINE 100 MG TAB PO SCH (08:13)
[2019-03-26] MEDS: METOPROLOL 25 MG TAB PO SCH ×2 (08:15→21:01)
[2019-03-26] MEDS: FUROSEMIDE 40 MG TAB PO SCH ×2 (08:16→21:00)
[2019-03-26] MEDS ORDERED: hydrALAzine 20 MG INJ IV PRN (10:00)
[2019-03-26] MEDS: NIFEdipine (XL) 30 MG TAB PO SCH ×2 (10:07→21:00)
--- NOTE | 2019-03-26 10:17 | PN ---
DATE: 03/26/2019 SUBJECTIVE: The patient is stable. No events overnight. The patient had surgery yesterday, tolerat ed well. Patient had hemodialysis yesterday, tolerated well. OBJECTIVE: VITAL SIGNS: Blood pressure is 195/85, pulse 79, respirations 20, temperature 98.4. HEENT: Head is normocephalic. NECK: Supple. HEART: Regular rate. LUNGS: Show diminished breath sounds at the base. ABDOMEN: Soft, nontender to palpation. No guarding. EXTREMITIES: Negative for clubbing, cyanosis. Noted dressing. NEUROLOGIC: No change. MEDICATIONS: Have been reviewed. LABORATORY DATA: Have been reviewed. IMAGING STUDIES: Have been reviewed. ASSESSMENT AND PLAN: 1. Renal failure, likely end-stage renal disease. The patient is to initiate hemodialysis and has h ad 2 sessions. Continue daily dialysis for sodium clearance and volume removal. A workup for second constantin causes is ongoing. To date, negative. Continue to monitor closely. 2. Hyperkalemia secondary to end-stage renal disease, improved. 3. Metabolic acidosis, improved. 4. Anemia. Monitor hemoglobin and hematocrit levels. Continue Epogen. 5. Mineral bone disorder. Monitor calcium and phosphorus levels, Follow parathyroid hormone, vitami n D level. 5. Status post fall, right tibia-fibula fracture. The patient is status post open reduction interna l fixation. 6. Diabetes. Continue current insulin regimen. 7. Peripheral neuropathy. Continue medical management. Dictated By: KITTY EID DO NR/NTS Conf#: [id number] DID#: [id number] CC: BRIANDA IZQUIERDO MD;*EndCC*
[2019-03-26] MEDS ORDERED: INSULIN ASPART [NOVOLOG] 3 ML PEN SC SCH (11:30)
[2019-03-26] MEDS: HEPARIN 1000 UNITS/ML 10 ML INJ CATHETER SCH (14:13)
--- NOTE | 2019-03-26 14:56 | PN ---
Date/Time of Note Date/Time of Note DATE: 03/26/19 TIME: 14:54 Objective Vitals Vital Signs Date Temp Pulse Resp B/P (MAP) Pulse Ox O2 O2 Flow FiO2 Time Delivery Rate 03/26/19 63 13:45 03/26/19 16 193/93 98 Room Air 12:07 (126) 03/26/19 98.1 11:54 03/25/19 8.0 18:42 Intake and Output 03/25/19 03/25/19 03/26/19 1515:00 23:00 07:00 IntakeIntake Total 600 ml 1800 ml 1200 ml OutputOutput Total 1900 ml 960 ml 900 ml BalanceBalance -1300 ml 840 ml 300 ml Results Result Diagram: 03/26/19 0538 03/26/1938 Medications Medications Current Medications Vancomycin HCl (Vanco Iv Per Pharmacy) VANCOMYCIN PER PHARMACY PER PROTOCOL XX ; Start 03/23/19 at 17:30 IV Flush (NS 3 ml) 3 ml PER PROTOCOL IV ; Start 03/23/19 at 17:30 Ondansetron HCl (Zofran Inj) 4 mg Q6H PRN IV NAUSEA/VOMITING Last administered on 03/24/19at 04:37; Admin Dose 4 MG; Start 03/23/19 at 17:30 Acetaminophen (Tylenol Tab) 650 mg Q6H PRN PO .PAIN 1-3 OR TEMP; Start 03/23/19 at 17:30 Morphine Sulfate (morphine) 2 mg Q4H PRN IV .PAIN 7-10 Last administered on 03/24/19at 23:55; Admin Dose 2 MG; Start 03/23/19 at 17:30 Pantoprazole (Protonix Tab) 40 mg DAILY@06 PO Last administered on 03/26/19at 05:14; Admin Dose 40 MG; Start 03/24/19 at 06:00 Diagnostic Test (Pha) (Accu-Chek) 1 ea 02 XX Last administered on 03/26/19at 02:00; Admin Dose 1 EA; Start 03/24/19 at 02:00 Insulin Glargine (Lantus) 23 units DAILY@2000 SC Last administered on 03/25/19at 23:44; Admin Dose 23 UNITS; Start 03/23/19 at 20:00 Ferrous Sulfate (Ferrous Sulfate (Ec)) 325 mg BID PO Last administered on 03/26/19 08:13; Admin Dose 325 MG; Start 03/23/19 at 21:00 Furosemide (Lasix) 40 mg BID PO Last administered on 03/26/19 08:16; Admin Dose 40 MG; Start 03/23/19 at 21:00 Metoprolol Tartrate (Lopressor) 25 mg BID PO Last administered on 03/26/19 08: 15; Admin Dose 25 MG; Start 03/23/19 at 21:00 Multivit/Ca Carb/ B Cmplx/FA/Prenat (Radha-Grace) 1 tab DAILY PO Last administered on 03/26/19 08:12; Admin Dose 1 TAB; Start 03/24/19 at 09:00 Thiamine HCl (Vitamin B1) 100 mg DAILY PO Last administered on 03/26/19 08:13; Admin Dose 100 MG; Start 03/24/19 at 09:00 Hydralazine HCl (Apresoline) 10 mg Q4H PRN IV sbp >160 Last administered on 03/26/19 11:57; Admin Dose 10 MG; Start 03/23/19 at 18:30 Cholecalciferol (Vitamin D) 2,000 unit DAILY PO Last administered on 03/26/19 08:13; Admin Dose 2,000 UNIT; Start 03/24/19 at 09:00 Atorvastatin Calcium (Lipitor) 40 mg HS PO Last administered on 03/25/19 23:17; Admin Dose 40 MG; Start 03/23/19 at 21:00 Epoetin Edouard-epbx (Retacrit (Esrd)) 10,000 unit MoWeFr@1700 SC Last administered on 03/24/19 17:42; Admin Dose 10,000 UNIT; Start 03/24/19 at 17:00 Atorvastatin Calcium (Lipitor) 10 mg HS PO Last administered on 03/25/19 23:17; Admin Dose 10 MG; Start 03/24/19 at 21:00 Heparin Sodium (Porcine) (Heparin (1000 Units/ml)) 4,500 unit AFTER DIALYSIS CATHETER Last administered on 03/26/19 14:13; Admin Dose 4,500 UNIT; Start 03/24/19 at 19:00 Mannitol 50 ml @ 50 mls/5 min WITH DIALYSIS PRN IV DISEQUILIBRIUM SYNDROME PPX; Start 03/24/19 at 19:00 Ceftriaxone Sodium 50 ml @ 100 mls/hr Q24H IVPB ; Start 03/25/19 at 16:00 Hydromorphone HCl (Dilaudid) 0.2 mg Q2H PRN IV .PAIN 1-5; Start 03/25/19 at 18:30; Stop 03/26/19 at 15:23 Hydromorphone HCl (Dilaudid) 0.4 mg Q2H PRN IV .PAIN 6-10; Start 03/25/19 at 18:30; Stop 03/26/19 at 15:23 Morphine Sulfate (morphine) 2 mg Q2H PRN IV .PAIN 1-5; Start 03/25/19 at 18:30; Stop 03/26/19 at 15:23 Morphine Sulfate (morphine) 4 mg Q2H PRN IV .PAIN 6-10; Start 03/25/19 at 18:30; Stop 03/26/19 at 15:23 Acetaminophen (Tylenol Tab) 500 mg Q4H PRN PO .PAIN 1-3; Start 03/25/19 at 18:30; Stop 03/26/19 at 15:23 Acetaminophen/ Hydrocodone Bitart ([place] (5/325)) 1 tab Q4H PRN PO .PAIN 4-6; Start 03/25/19 at 18:30; Stop 03/26/19 at 15:23 Diphenhydramine HCl (Benadryl) 25 mg Q4H PRN IV .PRURITUS; Start 03/25/19 at 18:30; Stop 03/26/19 at 15:23 Nalbuphine HCl (Nubain) 10 mg Q4H PRN IV .PRURITUS; Start 03/25/19 at 18:30; Stop 03/26/19 at 15:23 Ondansetron HCl (Zofran Inj) 4 mg Q6H PRN IV .NAUSEA/VOMITING; Start 03/25/19 at 18:30; Stop 03/26/19 at 15:23 Naloxone HCl (Narcan) 0.2 mg Q2M PRN IV .RESP RATE; Start 03/25/19 at 18:30; Stop 03/26/19 at 15:23 Miscellaneous Information (* Miscellaneous Pharmacy Order) DURAMORPH: 0.2 MG SPI... GIVEN NEURAXIAL XX ; Start 03/25/19 at 18:30 Enoxaparin Sodium (Lovenox) 30 mg DAILY SC ; Start 03/25/19 at 19:30 Morphine Sulfate (morphine) 3 mg Q3H PRN IV SEVERE PAIN LEVEL 7-10; Start 03/25/19 at 19:00 Acetaminophen/ Hydrocodone Bitart ([place] (5/325)) 1 tab Q3H PRN PO MODERATE PAIN LEVEL 4-6; Start 03/25/19 at 19:00 Insulin Aspart (Novolog Insulin Pen) (Adult SC Insulin - Moder... WITH MEALS BEDTIME SC Last administered on 03/26/19at 12:45; Admin Dose 8 UNIT; Start 03/26/19 at 08:00 Nifedipine (Procardia Xl) 30 mg BID PO Last administered on 03/26/19at 10:07; Admin Dose 30 MG; Start 03/26/19 at 09:00 Hydralazine HCl (Apresoline) 10 mg Q4H PRN IV SBP >160; Start 03/26/19 at 10:00 Labetalol HCl (Labetalol) 10 mg Q4H PRN IV SBP >160; Start 03/26/19 at 10:00 Insulin Aspart (Novolog Insulin Pen) 8 unit WITH MEALS SC ; Start 03/26/19 at 18:00; Status UNV VTE Prophylaxis Risk score (from Nsg)>0 risk: 8 SCD applied (from Ns): Yes Lines/Catheters IV Catheter Type: Montanez in Place: No Assessment/Plan Hospital Course Subjective Patient doing well after surgery Objective Physical exam General: Patient is laying in bed and answers questions appropriately Mentation: Patient is alert and oriented 4, Head: Normocephalic atraumatic Eyes: EOMI, pupils reactive to light Neck: Supple, nontender, midline Respiratory: Clear to auscultation bilaterally Cardiovascular: regular rate, no obvious murmurs Gastrointestinal: non-tender to palpation, bowel sounds heard. Neurological: Moves all extremities spontaneously Musculoskeletal: Right lower extremity bandaged, open fracture Assessment and plan Right tib-fib open fracture -Broad-spectrum IV antibiotic -Orthopedic surgeon notified of open fracture, s/p ortho surgery -Infection disease consulted for antibiotic management -Cardiology consulted for cardiac needs before surgery Chronic kidney disease with likely near end-stage renal disease -Nephrology consulted -Patient agreeable for dialysis, permacath placed -Nephrology to manage -CM notified regarding dialysis chair Electrolyte derangement -Replete as needed -Nephrology on board moderate to severe anemia - secondary to hemorrhagic cause secondary to open fracture -transfuse as needed Peripheral neuropathy -Moderate to severe as patient has very little feeling in his right lower extremity and left lower extremity that is chronic Diabetes mellitus -Lantus and insulin sliding scale as per patient's home regimen -adding mealtime insulin Disposition -doing well post surgery, ARU evbrenna. need to keep inpatient for abx BRIANDA IZQUIERDO Mar 26, 2019 14:56
--- NOTE | 2019-03-26 15:49 | CONS ---
Assessment/Plan Assessment/Plan Hospital Course (Demo Recall) SUBJECTIVE: Alert, feels good, status post hemodialysis no fevers overnight ANTIMICROBIALS: 1. Rocephin 2. Vancomycin. Indwelling: RSC Benjy PHYSICAL EXAMINATION: GENERAL: This is a morbidly obese, well-developed, middle-aged, white man who is awake, in no distress. HEAD: Atraumatic, normocephalic. NECK: Supple. CHEST: Rise symmetrical. Breath sounds diminished to bases. HEART: S1, S2. ABDOMEN: Soft, bowel tones present. EXTREMITIES: Right lower extremity dressing intact. ASSESSMENT: 1. Open fracture of distal tibia and fibula, status post ORIF 03/25/19 2. Acute renal failure, possibly on chronic disease. 3. Diabetes. 4. Obesity. 5. Hypertension. PLAN: The patient remains stable. Continue abx, ortho rec-s Consultation Date/Type/Reason Admit Date/Time Mar 23, 2019 at 16:53 Initial Consult Date 03/23/19 Type of Consult id Requesting Provider: BRIANDA IZQUIERDO Date/Time of Note DATE: 03/26/19 TIME: 15:47 Exam/Review of Systems Exam Vitals Vital Signs Date Temp Pulse Resp B/P (MAP) Pulse Ox O2 O2 Flow FiO2 Time Delivery Rate 03/26/19 98.5 71 20 188/84 93 Room Air 15:28 (118) 03/25/19 8.0 18:42 Intake and Output 03/25/19 03/25/19 03/26/19 1515:00 23:00 07:00 IntakeIntake Total 600 ml 1800 ml 1200 ml OutputOutput Total 1900 ml 960 ml 900 ml BalanceBalance -1300 ml 840 ml 300 ml Results Result Diagram: 03/26/19 0538 03/26/19 0538 Results 24hrs Laboratory Tests Test 03/25/19 18:35 03/25/19 18:57 03/25/19 23:11 03/26/19 02:30 Bedside Glucose 91 205 247 H White Blood Count 10.0 Red Blood Count 3.05 #L Hemoglobin 8.9 #L Hematocrit 27.6 #L Mean Corpuscular Volume 90.5 Mean Corpuscular 29.2 Hemoglobin Mean Corpuscular 32.2 Hemoglobin Concent Red Cell Distribution 14.5 Width Platelet Count 140 Mean Platelet Volume 10.7 H Immature Granulocytes % 0.900 H Neutrophils % 72.4 Lymphocytes % 11.4 L Monocytes % 12.7 H Eosinophils % 2.1 Basophils % 0.5 Nucleated Red Blood 0.0 Cells % Immature Granulocytes # 0.090 H Neutrophils # 7.2 Lymphocytes # 1.1 Monocytes # 1.3 H Eosinophils # 0.2 Basophils # 0.1 Nucleated Red Blood 0.0 Cells # Test 03/26/19 05:22 03/26/19 05:38 03/26/19 11:47 Bedside Glucose 271 H 290 H White Blood Count 11.3 H Red Blood Count 3.19 L Hemoglobin 9.2 L Hematocrit 28.7 L Mean Corpuscular Volume 90.0 Mean Corpuscular 28.8 L Hemoglobin Mean Corpuscular 32.1 Hemoglobin Concent Red Cell Distribution 14.6 H Width Platelet Count 137 L Mean Platelet Volume 11.3 H Immature Granulocytes % 1.500 H Neutrophils % 93.1 H Lymphocytes % 2.4 L Monocytes % 2.8 Eosinophils % 0.0 Basophils % 0.2 Nucleated Red Blood 0.0 Cells % Immature Granulocytes # 0.170 H Neutrophils # 10.5 H Lymphocytes # 0.3 L Monocytes # 0.3 Eosinophils # 0.0 Basophils # 0.0 Nucleated Red Blood 0.0 Cells # Sodium Level 137 Potassium Level 4.9 Chloride Level 109 Carbon Dioxide Level 16 L Anion Gap 12 Blood Urea Nitrogen 60 H Creatinine 6.95 H Est Glomerular Filtrat 8 L Rate mL/min Glucose Level 273 #H Calcium Level 6.8 L Phosphorus Level 6.5 H Magnesium Level 1.8 Medications Medication Current Medications Vancomycin HCl (Vanco Iv Per Pharmacy) VANCOMYCIN PER PHARMACY PER PROTOCOL XX ; Start 03/23/19 at 17:30 IV Flush (NS 3 ml) 3 ml PER PROTOCOL IV ; Start 03/23/19 at 17:30 Ondansetron HCl (Zofran Inj) 4 mg Q6H PRN IV NAUSEA/VOMITING Last administered on 03/24/19at 04:37; Admin Dose 4 MG; Start 03/23/19 at 17:30 Acetaminophen (Tylenol Tab) 650 mg Q6H PRN PO .PAIN 1-3 OR TEMP; Start 03/23/19 at 17:30 Morphine Sulfate (morphine) 2 mg Q4H PRN IV .PAIN 7-10 Last administered on 03/24/19at 23:55; Admin Dose 2 MG; Start 03/23/19 at 17:30 Pantoprazole (Protonix Tab) 40 mg DAILY@06 PO Last administered on 03/26/19 05: 14; Admin Dose 40 MG; Start 03/24/19 at 06:00 Diagnostic Test (Pha) (Accu-Chek) 1 ea 02 XX Last administered on 03/26/19 02:00; Admin Dose 1 EA; Start 03/24/19 at 02:00 Insulin Glargine (Lantus) 23 units DAILY@2000 SC Last administered on 03/25/19 23:44; Admin Dose 23 UNITS; Start 03/23/19 at 20:00 Ferrous Sulfate (Ferrous Sulfate (Ec)) 325 mg BID PO Last administered on 03/26/19 08:13; Admin Dose 325 MG; Start 03/23/19 at 21:00 Furosemide (Lasix) 40 mg BID PO Last administered on 03/26/19 08:16; Admin Dose 40 MG; Start 03/23/19 at 21:00 Metoprolol Tartrate (Lopressor) 25 mg BID PO Last administered on 03/26/19 08:15; Admin Dose 25 MG; Start 03/23/19 at 21:00 Multivit/Ca Carb/ B Cmplx/FA/Prenat (Radha-Grace) 1 tab DAILY PO Last administered on 03/26/19 08:12; Admin Dose 1 TAB; Start 03/24/19 at 09:00 Thiamine HCl (Vitamin B1) 100 mg DAILY PO Last administered on 03/26/19 08:13; Admin Dose 100 MG; Start 03/24/19 at 09:00 Hydralazine HCl (Apresoline) 10 mg Q4H PRN IV sbp >160 Last administered on 03/26/19 11:57; Admin Dose 10 MG; Start 03/23/19 at 18:30 Cholecalciferol (Vitamin D) 2,000 unit DAILY PO Last administered on 03/26/19 08:13; Admin Dose 2,000 UNIT; Start 03/24/19 at 09:00 Atorvastatin Calcium (Lipitor) 40 mg HS PO Last administered on 03/25/19 23:17; Admin Dose 40 MG; Start 03/23/19 at 21:00 Epoetin Edouard-epbx (Retacrit (Esrd)) 10,000 unit MoWeFr@1700 SC Last a dministered on 03/24/19at 17:42; Admin Dose 10,000 UNIT; Start 03/24/19 at 17:00 Atorvastatin Calcium (Lipitor) 10 mg HS PO Last administered on 03/25/19at 23:17; Admin Dose 10 MG; Start 03/24/19 at 21:00 Heparin Sodium (Porcine) (Heparin (1000 Units/ml)) 4,500 unit AFTER DIALYSIS CATHETER Last administered on 03/26/19at 14:13; Admin Dose 4,500 UNIT; Start 03/24/19 at 19:00 Mannitol 50 ml @ 50 mls/5 min WITH DIALYSIS PRN IV DISEQUILIBRIUM SYNDROME PPX; Start 03/24/19 at 19:00 Ceftriaxone Sodium 50 ml @ 100 mls/hr Q24H IVPB Last administered on 03/26/19at 15:40; Admin Dose 100 MLS/HR; Start 03/25/19 at 16:00 Miscellaneous Information (* Miscellaneous Pharmacy Order) DURAMORPH: 0.2 MG SPI... GIVEN NEURAXIAL XX ; Start 03/25/19 at 18:30 Enoxaparin Sodium (Lovenox) 30 mg DAILY SC ; Start 03/25/19 at 19:30 Morphine Sulfate (morphine) 3 mg Q3H PRN IV SEVERE PAIN LEVEL 7-10; Start 03/25/19 at 19:00 Acetaminophen/ Hydrocodone Bitart ([place] (5/325)) 1 tab Q3H PRN PO MODERATE PAIN LEVEL 4-6; Start 03/25/19 at 19:00 Insulin Aspart (Novolog Insulin Pen) (Adult SC Insulin - Moder... WITH MEALS BEDTIME SC Last administered on 03/26/19at 12:45; Admin Dose 8 UNIT; Start 03/26/19 at 08:00 Nifedipine (Procardia Xl) 30 mg BID PO Last administered on 03/26/19at 10:07; Admin Dose 30 MG; Start 03/26/19 at 09:00 Hydralazine HCl (Apresoline) 10 mg Q4H PRN IV SBP >160; Start 03/26/19 at 10:00 Labetalol HCl (Labetalol) 10 mg Q4H PRN IV SBP >160; Start 03/26/19 at 10:00 Insulin Aspart (Novolog Insulin Pen) 8 unit WITH MEALS SC ; Start 03/26/19 at 18:00 ANGELA BURROUGHS NP Mar 26, 2019 15:49
[2019-03-26] MEDS: EPOETIN ALFA-EPBX (ESRD) 10,000 UNIT/ML VIAL SC SCH (17:39)
[2019-03-26] MEDS: INSULIN ASPART [NOVOLOG] 3 ML PEN SC SCH (17:43)
[2019-03-26] MEDS: ATORVASTATIN 40 MG TAB PO SCH (20:59)
[2019-03-26] MEDS: ATORVASTATIN 10 MG TAB PO SCH (20:59)
[2019-03-26] MEDS: INSULIN GLARGINE [LANTus] (100 UNITS/ML) SYG SC SCH (21:18)
[2019-03-26] MEDS: HEPARIN 5,000 UNIT/1 ML VIAL SC SCH (21:22)
[2019-03-27] VITALS (21 sets, daily range): BP systolic 144–208; BP diastolic 66–96; PULSE 69–82; RESP 16–22
[2019-03-27] MEDS: ACCU-CHEK XX SCH (02:14)
[2019-03-27] MEDS: PANTOPRAZOLE (EC) 40 MG TAB PO SCH (05:41)
--- NOTE | 2019-03-27 08:17 | PN ---
DATE: 03/27/2019 SUBJECTIVE: The patient had hemodialysis yesterday, tolerated well. No fevers, chills, nausea or vo miting. OBJECTIVE: VITAL SIGNS: Blood pressure is 144/66, respirations 20, pulse 70, temperature 99.5. HEENT: Head is normocephalic. NECK: Supple. HEART: Regular rate. LUNGS: Show diminished breath sounds at the base. ABDOMEN: Soft, nontender to palpation. No rebound or guarding. EXTREMITIES: Negative for clubbing, cyanosis, positive edema. Positive cast over right lower extrem ity. DERMATOLOGIC: No rashes. MUSCULOSKELETAL: No joint effusion. NEUROLOGIC: No change in exam. MEDICATIONS: Have been reviewed. LABORATORY DATA: Has been reviewed. IMAGING STUDIES: Have been reviewed. ASSESSMENT AND PLAN: 1. Renal failure, likely end-stage renal disease. The patient has been initiated on dialysis, statu s post 2 sessions. Anticipate third session of hemodialysis today. Will monitor for any signs of re nal recovery. Outpatient hemodialysis is being arranged per case management at [facility]. 2. Hyperkalemia secondary to advanced renal failure, likely end-stage renal disease, resolved. 3. Metabolic acidosis, improved. 4. Anemia. Monitor hemoglobin and hematocrit levels. Continue Epogen. 5. Mineral bone disorder. Monitor calcium and phosphorus levels. Continue hemodialysis. The patie nt's PTH levels are elevated. Vitamin D levels are low, will start the patient on vitamin D analogs. 6. Status post fall, right tib-fib fracture status post open reduction internal fixation. Continue to monitor. Follow up with surgery. 7. Diabetes. Continue current insulin regimen. 8. Peripheral neuropathy. Continue medical management. Dictated By: KITTY EID DO NR/NTS Conf#: [id number] DID#: [id number] CC: BRIANDA IZQUIERDO MD;*EndCC*
[2019-03-27] MEDS: SEVELAMER CARBONATE 800 MG TABLET PO SCH ×2 (08:43→12:37)
[2019-03-27] MEDS: FUROSEMIDE 40 MG TAB PO SCH ×2 (08:44→23:54)
[2019-03-27] MEDS: THIAMINE 100 MG TAB PO SCH (08:45)
[2019-03-27] MEDS: CHOLECALCIFEROL 2,000 UNIT CAP PO SCH (08:45)
[2019-03-27] MEDS: MULTIVIT/CA CARB/B CMPLX/FA TAB PO SCH (08:45)
[2019-03-27] MEDS: METOPROLOL 25 MG TAB PO SCH ×2 (08:46→23:54)
[2019-03-27] MEDS: NIFEdipine (XL) 30 MG TAB PO SCH ×2 (08:46→23:53)
[2019-03-27] MEDS: INSULIN ASPART [NOVOLOG] 3 ML PEN SC SCH ×3 (08:52→18:00)
[2019-03-27] MEDS: HEPARIN 5,000 UNIT/1 ML VIAL SC SCH ×2 (08:52→20:44)
[2019-03-27] MEDS: Insulin NOVOLOG SS MODERATE Algorithm (SS with meals and bedtime) SC SCH ×4 (08:52→21:00)
[2019-03-27] MEDS: FERROUS SULFATE (EC) 325 MG TAB PO SCH ×2 (08:56→20:43)
--- NOTE | 2019-03-27 12:55 | PN ---
Date/Time of Note Date/Time of Note DATE: 03/27/19 TIME: 12:53 Objective Vitals Vital Signs Date Temp Pulse Resp B/P (MAP) Pulse Ox O2 O2 Flow FiO2 Time Delivery Rate 03/27/19 98.0 73 20 173/76 96 Room Air 11:59 (108) 03/25/19 8.0 18:42 Intake and Output 03/26/19 03/26/19 03/27/19 1515:00 23:00 07:00 IntakeIntake Total 1060 ml 730 ml OutputOutput Total 3250 ml 350 ml 400 ml BalanceBalance -2190 ml 380 ml -400 ml Results Result Diagram: 03/27/1952303/27/19523 Medications Medications Current Medications Vancomycin HCl (Vanco Iv Per Pharmacy) VANCOMYCIN PER PHARMACY PER PROTOCOL XX ; Start 03/23/19 at 17:30 IV Flush (NS 3 ml) 3 ml PER PROTOCOL IV ; Start 03/23/19 at 17:30 Ondansetron HCl (Zofran Inj) 4 mg Q6H PRN IV NAUSEA/VOMITING Last administered on 03/24/19at 04:37; Admin Dose 4 MG; Start 03/23/19 at 17:30 Acetaminophen (Tylenol Tab) 650 mg Q6H PRN PO .PAIN 1-3 OR TEMP Last administered on 03/27/19at 04:48; Admin Dose 650 MG; Start 03/23/19 at 17:30 Morphine Sulfate (morphine) 2 mg Q4H PRN IV .PAIN 7-10 Last administered on 03/24/19at 23:55; Admin Dose 2 MG; Start 03/23/19 at 17:30 Pantoprazole (Protonix Tab) 40 mg DAILY@06 PO Last administered on 03/27/19at 05:41; Admin Dose 40 MG; Start 03/24/19 at 06:00 Diagnostic Test (Pha) (Accu-Chek) 1 ea 02 XX Last administered on 03/27/19at 02 :14; Admin Dose 1 EA; Start 03/24/19 at 02:00 Insulin Glargine (Lantus) 23 units DAILY@2000 SC Last administered on 03/26/19at 21:18; Admin Dose 23 UNITS; Start 03/23/19 at 20:00 Ferrous Sulfate (Ferrous Sulfate (Ec)) 325 mg BID PO Last administered on 03/27/19 08:56; Admin Dose 325 MG; Start 03/23/19 at 21:00 Furosemide (Lasix) 40 mg BID PO Last administered on 03/27/19 08:44; Admin Dose 40 MG; Start 03/23/19 at 21:00 Metoprolol Tartrate (Lopressor) 25 mg BID PO Last administered on 03/27/19 08:46; Admin Dose 25 MG; Start 03/23/19 at 21:00 Multivit/Ca Carb/ B Cmplx/FA/Prenat (Radha-Grace) 1 tab DAILY PO Last administered on 03/27/19 08:45; Admin Dose 1 TAB; Start 03/24/19 at 09:00 Thiamine HCl (Vitamin B1) 100 mg DAILY PO Last administered on 03/27/19 08:45; Admin Dose 100 MG; Start 03/24/19 at 09:00 Hydralazine HCl (Apresoline) 10 mg Q4H PRN IV sbp >160 Last administered on 03/26/19 21:37; Admin Dose 10 MG; Start 03/23/19 at 18:30 Cholecalciferol (Vitamin D) 2,000 unit DAILY PO Last administered on 03/27/19 08:45; Admin Dose 2,000 UNIT; Start 03/24/19 at 09:00 Atorvastatin Calcium (Lipitor) 40 mg HS PO Last administered on 03/26/19 20:59; Admin Dose 40 MG; Start 03/23/19 at 21:00 Epoetin Edouard-epbx (Retacrit (Esrd)) 10,000 unit MoWeFr@1700 SC Last administered on 03/26/19 17:39; Admin Dose 10,000 UNIT; Start 03/24/19 at 17:00 Atorvastatin Calcium (Lipitor) 10 mg HS PO Last administered on 03/26/19 20:59; Admin Dose 10 MG; Start 03/24/19 at 21:00 Heparin Sodium (Porcine) (Heparin (1000 Units/ml)) 4,500 unit AFTER DIALYSIS CATHETER Last administered on 03/26/19 14:13; Admin Dose 4,500 UNIT; Start 03/24/19 at 19:00 Mannitol 50 ml @ 50 mls/5 min WITH DIALYSIS PRN IV DISEQUILIBRIUM SYNDROME PPX; Start 03/24/19 at 19:00 Ceftriaxone Sodium 50 ml @ 100 mls/hr Q24H IVPB Last administered on 03/26/19at 15:40; Admin Dose 100 MLS/HR; Start 03/25/19 at 16:00 Miscellaneous Information (* Miscellaneous Pharmacy Order) DURAMORPH: 0.2 MG SPI... GIVEN NEURAXIAL XX ; Start 03/25/19 at 18:30 Morphine Sulfate (morphine) 3 mg Q3H PRN IV SEVERE PAIN LEVEL 7-10; Start 03/25/19 at 19:00 Acetaminophen/ Hydrocodone Bitart ([place] (5/325)) 1 tab Q3H PRN PO MODERATE PAIN LEVEL 4-6; Start 03/25/19 at 19:00 Insulin Aspart (Novolog Insulin Pen) (Adult SC Insulin - Moder... WITH MEALS BEDTIME SC Last administered on 03/27/19 08:52; Admin Dose 6 UNIT; Start 03/26/19 at 08:00 Nifedipine (Procardia Xl) 30 mg BID PO Last administered on 03/27/19at 08:46; Admin Dose 30 MG; Start 03/26/19 at 09:00 Hydralazine HCl (Apresoline) 10 mg Q4H PRN IV SBP >160; Start 03/26/19 at 10:00 Labetalol HCl (Labetalol) 10 mg Q4H PRN IV SBP >160; Start 03/26/19 at 10:00 Heparin Sodium (Porcine) (Heparin (5000 Units/1ml)) 5,000 unit BID SC Last administered on 03/27/19 08:52; Admin Dose 5,000 UNIT; Start 03/26/19 at 21:00 Sevelamer Carbonate (Renvela) 800 mg WITH MEALS PO Last administered on 03/27 12:37; Admin Dose 800 MG; Start 03/27/19 at 08:00 Insulin Aspart (Novolog Insulin Pen) 10 unit WITH MEALS SC Last administered on 03/27/19 12:44; Admin Dose 10 UNIT; Start 03/27/19 at 12:00 VTE Prophylaxis Risk score (from Nsg)>0 risk: 8 SCD applied (from Nsg): Yes Lines/Catheters IV Catheter Type: [place] in Place: No Assessment/Plan Hospital Course Subjective Patient doing well after surgery Objective Physical exam General: Patient is laying in bed and answers questions appropriately Mentation: Patient is alert and oriented 4, Head: Normocephalic atraumatic Eyes: EOMI, pupils reactive to light Neck: Supple, nontender, midline Respiratory: Clear to auscultation bilaterally Cardiovascular: regular rate, no obvious murmurs Gastrointestinal: non-tender to palpation, bowel sounds heard. Neurological: Moves all extremities spontaneously Musculoskeletal: Right lower extremity bandaged, open fracture Assessment and plan Right tib-fib open fracture, with surgical correction -Broad-spectrum IV antibiotic -Orthopedic surgeon notified of open fracture, s/p ortho surgery with pins -Infection disease consulted for antibiotic management -Cardiology consulted for cardiac needs before surgery end-stage renal disease -Nephrology consulted -Patient agreeable for dialysis, permacath placed -Nephrology to manage -CM notified regarding dialysis chair Electrolyte derangement -Replete as needed -Nephrology on board Left foot skin wound -Patient's pain on his surgical leg grazed his left foot, wound care pending, already scarring up and healing. moderate to severe anemia - secondary to hemorrhagic cause secondary to open fracture -transfuse as needed Peripheral neuropathy -Moderate to severe as patient has very little feeling in his right lower extre mity and left lower extremity that is chronic Diabetes mellitus -Lantus and insulin sliding scale as per patient's home regimen -adding mealtime insulin Disposition -doing well post surgery, JULIÁN magallanes. need to keep inpatient for BRIANDA Heredia Mar 27, 2019 12:55
--- NOTE | 2019-03-27 15:43 | CONS ---
Assessment/Plan Assessment/Plan Hospital Course (Demo Recall) ID PROGRESS NOTE CURRENT ABX: DAY # => Vanco IV + Ceftriaxone 03/27/1952303/27/19523 24H INTERVAL SUMMARY * POD #2 -> s/p 03/25/19 open irrigation and debridment of the open fracture of tibia. open reduction of tibia fracture and immobilization a cast using pins plaster technique,right leg * Low grade Tmax 99.3, WBC normal, B/P elevated * Patient is stable and coping well === Right leg cast DIAGNOSTIC IMAGING * 03/23/19 CXR: No acute cardiopulmonary disease. MICRO * 03/25/19 URINE CX: URINE CULTURE Final NO GROWTH AFTER 48 HOURS PHYSICAL EXAMINATION: GENERAL: VSS, NAD HEENT: AT, NC, NECK: Supple, CHEST: Rise symmetrical HEART: Pulse RRR ABDOMEN: EXTREMITIES: Warm, dry == Right leg cast SKIN: No rash, no diaphoresis ID ASSESSMENT 53 yo M admit with: 1. Open fracture of distal tibia and fibula, status post ORIF 03/25/19 2. Acute renal failure, possibly on chronic disease. 3. Diabetes. 4. Obesity. 5. Hypertension. (-) MRSA Nares ABX ALLERGIES: KNDA INVASIVES: Indwelling: RSC Benjy CURRENT ABX: DAY # =>Vanco IV + Ceftriaxone ID RECOMMENDATIONS/PLAN: 1. Continue current ABX over the weekend -- Will f/u tomorrow . Consultation Date/Type/Reason Admit Date/Time Mar 23, 2019 at 16:53 Initial Consult Date 03/23/19 Requesting Provider: BRIANDA IZQUIERDO Date/Time of Note DATE: 03/27/19 TIME: 15:43 Exam/Review of Systems Exam Vitals Vital Signs Date Temp Pulse Resp B/P (MAP) Pulse Ox O2 O2 Flow FiO2 Time Delivery Rate 03/27/19 98.0 73 20 173/76 96 Room Air 11:59 (108) 03/25/19 8.0 18:42 Intake and Output 03/26/19 03/26/19 03/27/19 1515:00 23:00 07:00 IntakeIntake Total 1060 ml 730 ml OutputOutput Total 3250 ml 350 ml 400 ml BalanceBalance -2190 ml 380 ml -400 ml Results Result Diagram: 03/27/1952303/27/19523 Results 24hrs Laboratory Tests Test 03/26/19 17:24 03/26/19 21:04 03/27/19 02:12 03/27/19 05:24 Bedside Glucose 224 H 201 185 White Blood Count 10.8 Red Blood Count 2.80 L Hemoglobin 8.0 L Hematocrit 25.1 L Mean Corpuscular Volume 89.6 Mean Corpuscular 28.6 L Hemoglobin Mean Corpuscular 31.9 L Hemoglobin Concent Red Cell Distribution 14.6 H Width Platelet Count 155 Mean Platelet Volume 12.1 H Immature Granulocytes % 1.300 H Neutrophils % 79.2 H Lymphocytes % 7.1 L Monocytes % 10.3 Eosinophils % 1.9 Basophils % 0.2 Nucleated Red Blood 0.0 Cells % Immature Granulocytes # 0.140 H Neutrophils # 8.5 H Lymphocytes # 0.8 Monocytes # 1.1 H Eosinophils # 0.2 Basophils # 0.0 Nucleated Red Blood 0.0 Cells # Sodium Level 136 Potassium Level 3.8 Chloride Level 106 Carbon Dioxide Level 21 Anion Gap 9 Blood Urea Nitrogen 55 H Creatinine 6.13 H Est Glomerular Filtrat 10 L Rate mL/min Glucose Level 246 H Calcium Level 6.5 L Phosphorus Level 5.2 H Magnesium Level 1.7 Test 03/27/19 08:43 03/27/19 12:39 Bedside Glucose 236 H 134 Medications Medication Current Medications Vancomycin HCl (Vanco Iv Per Pharmacy) VANCOMYCIN PER PHARMACY PER PROTOCOL XX ; Start 03/23/19 at 17:30 IV Flush (NS 3 ml) 3 ml PER PROTOCOL IV ; Start 03/23/19 at 17:30 Ondansetron HCl (Zofran Inj) 4 mg Q6H PRN IV NAUSEA/VOMITING Last administered on 03/24/19at 04:37; Admin Dose 4 MG; Start 03/23/19 at 17:30 Acetaminophen (Tylenol Tab) 650 mg Q6H PRN PO .PAIN 1-3 OR TEMP Last admini stered on 03/27/19at 04:48; Admin Dose 650 MG; Start 03/23/19 at 17:30 Morphine Sulfate (morphine) 2 mg Q4H PRN IV .PAIN 7-10 Last administered on 03/24/19at 23:55; Admin Dose 2 MG; Start 03/23/19 at 17:30 Pantoprazole (Protonix Tab) 40 mg DAILY@06 PO Last administered on 03/27/19 05:41; Admin Dose 40 MG; Start 03/24/19 at 06:00 Diagnostic Test (Pha) (Accu-Chek) 1 ea 02 XX Last administered on 03/27/19 02:14; Admin Dose 1 EA; Start 03/24/19 at 02:00 Insulin Glargine (Lantus) 23 units DAILY@2000 SC Last administered on 03/26/19 21:18; Admin Dose 23 UNITS; Start 03/23/19 at 20:00 Ferrous Sulfate (Ferrous Sulfate (Ec)) 325 mg BID PO Last administered on 03/27/19 08:56; Admin Dose 325 MG; Start 03/23/19 at 21:00 Furosemide (Lasix) 40 mg BID PO Last administered on 03/27/19 08:44; Admin Dose 40 MG; Start 03/23/19 at 21:00 Metoprolol Tartrate (Lopressor) 25 mg BID PO Last administered on 03/27/19 08:46; Admin Dose 25 MG; Start 03/23/19 at 21:00 Multivit/Ca Carb/ B Cmplx/FA/Prenat (Radha-Grace) 1 tab DAILY PO Last administered on 03/27/19 08:45; Admin Dose 1 TAB; Start 03/24/19 at 09:00 Thiamine HCl (Vitamin B1) 100 mg DAILY PO Last administered on 03/27/19 08:45; Admin Dose 100 MG; Start 03/24/19 at 09:00 Hydralazine HCl (Apresoline) 10 mg Q4H PRN IV sbp >160 Last administered on 03/26/19 21:37; Admin Dose 10 MG; Start 03/23/19 at 18:30 Cholecalciferol (Vitamin D) 2,000 unit DAILY PO Last administered on 03/27/19 08:45; Admin Dose 2,000 UNIT; Start 03/24/19 at 09:00 Epoetin Edouard-epbx (Retacrit (Esrd)) 10,000 unit MoWeFr@1700 SC Last administered on 03/26/19 17:39; Admin Dose 10,000 UNIT; Start 03/24/19 at 17:00 Atorvastatin Calcium (Lipitor) 10 mg HS PO Last administered on 03/26/19 20:59; Admin Dose 10 MG; Start 03/24/19 at 21:00 Heparin Sodium (Porcine) (Heparin (1000 Units/ml)) 4,500 unit AFTER DIALYSIS CATHETER Last administered on 03/26/19at 14:13; Admin Dose 4,500 UNIT; Start 03/24/19 at 19:00 Mannitol 50 ml @ 50 mls/5 min WITH DIALYSIS PRN IV DISEQUILIBRIUM SYNDROME PPX; Start 03/24/19 at 19:00 Ceftriaxone Sodium 50 ml @ 100 mls/hr Q24H IVPB Last administered on 03/26/19at 15:40; Admin Dose 100 MLS/HR; Start 03/25/19 at 16:00 Miscellaneous Information (* Miscellaneous Pharmacy Order) DURAMORPH: 0.2 MG SPI... GIVEN NEURAXIAL XX ; Start 03/25/19 at 18:30 Morphine Sulfate (morphine) 3 mg Q3H PRN IV SEVERE PAIN LEVEL 7-10; Start 03/25/19 at 19:00 Acetaminophen/ Hydrocodone Bitart ([place] (5/325)) 1 tab Q3H PRN PO MODERATE PAIN LEVEL 4-6; Start 03/25/19 at 19:00 Insulin Aspart (Novolog Insulin Pen) (Adult SC Insulin - Moder... WITH MEALS BEDTIME SC Last administered on 03/27/19 08:52; Admin Dose 6 UNIT; Start 03/26/19 at 08:00 Hydralazine HCl (Apresoline) 10 mg Q4H PRN IV SBP >160; Start 03/26/19 at 10:00 Labetalol HCl (Labetalol) 10 mg Q4H PRN IV SBP >160; Start 03/26/19 at 10:00 Heparin Sodium (Porcine) (Heparin (5000 Units/1ml)) 5,000 unit BID SC Last administered on 03/27/19 08:52; Admin Dose 5,000 UNIT; Start 03/26/19 at 21:00 Sevelamer Carbonate (Renvela) 800 mg WITH MEALS PO Last administered on 03/27/19at 12:37; Admin Dose 800 MG; Start 03/27/19 at 08:00 Insulin Aspart (Novolog Insulin Pen) 10 unit WITH MEALS SC Last administered on 03/27/19 12:44; Admin Dose 10 UNIT; Start 03/27/19 at 12:00 Nifedipine (Procardia Xl) 60 mg BID PO ; Start 03/27/19 at 21:00 Miscellaneous Information (*Rx Drug Level Order Reminder*) VANCO RANDOM 0500 ONCE XX ; Start 03/28/19 at 05:00; Stop 03/28/19 at 05:01 DANNY TOURE NP Mar 27, 2019 15:43
[2019-03-27] MEDS: hydrALAzine 20 MG INJ IV PRN ×2 (17:47→23:54)
[2019-03-27] MEDS: LABETALOL HCL 20MG INJ IV PRN (18:53)
[2019-03-27] MEDS: ATORVASTATIN 10 MG TAB PO SCH (20:43)
[2019-03-27] MEDS: INSULIN GLARGINE [LANTus] (100 UNITS/ML) SYG SC SCH (20:46)
[2019-03-27] MEDS: HEPARIN 1000 UNITS/ML 10 ML INJ CATHETER SCH (21:45)
[2019-03-28] VITALS (7 sets, daily range): BP systolic 148–183; BP diastolic 65–81; PULSE 65–110; RESP 18–20
[2019-03-28] MEDS: HYDROCODONE/APAP (5/325) TAB PO PRN (01:32)
[2019-03-28] MEDS: ACCU-CHEK XX SCH (02:00)
[2019-03-28] MEDS: LABETALOL HCL 20MG INJ IV PRN ×2 (03:37→03:45)
[2019-03-28] MEDS: ONDANSETRON 4 MG INJ IV PRN ×3 (03:42→17:33)
[2019-03-28] MEDS: PANTOPRAZOLE (EC) 40 MG TAB PO SCH (03:49)
[2019-03-28] MEDS: NIFEdipine (XL) 30 MG TAB PO SCH ×2 (08:16→20:42)
[2019-03-28] MEDS: FUROSEMIDE 40 MG TAB PO SCH ×2 (08:19→20:42)
[2019-03-28] MEDS: METOPROLOL 50 MG TAB PO SCH ×2 (08:19→20:43)
--- NOTE | 2019-03-28 08:24 | PN ---
DATE: 03/28/2019 SUBJECTIVE: The patient is stable, no events overnight. Patient continues to be hypertensive. The patient had hemodialysis yesterday, tolerated it well. OBJECTIVE: VITAL SIGNS: Blood pressure is 160/78, pulse 87, respirations 18, temperature 98.2. HEENT: Head is normocephalic. NECK: Supple. HEART: Regular rate. LUNGS: Show diminished breath sounds at the base. ABDOMEN: Soft, nontender to palpation without rebound or guarding. EXTREMITIES: Negative for clubbing, cyanosis. Positive edema. Positive cast. DERMATOLOGIC: No rashes. MUSCULOSKELETAL: No joint effusion. NEUROLOGIC: No change in exam. MEDICATIONS: The patient's medications have been reviewed. LABORATORY DATA: Has been reviewed. Images have been reviewed. ASSESSMENT AND PLAN: 1. Renal failure, likely end-stage renal disease. The patient is status post 3 sessions of hemodial ysis. Plan for dialysis tomorrow. Outpatient hemodialysis is being arranged by case management Jolly Stern. 2. Hyperkalemia, resolved. Continue dialysis on low potassium bath. 3. Metabolic acidosis, improved. 4. Anemia. Monitor hemoglobin and hematocrit levels. Continue Epogen. 5. Mineral bone disorder. Continue vitamin D analogs. Continue to monitor calcium and phosphorus l evels. 6. Status post fall with right hip fracture. The patient is status post open reduction internal fix ation. Continue to monitor. 7. Diabetes. Continue current insulin regimen. 8. Peripheral neuropathy. Continue medical management. 9. Hypertension. Blood pressure is elevated. Continue current blood pressure regimen. Will adjust medications. Continue to treat underlying pain. Dictated By: KITTY EID DO NR/NTS Conf#: [id number] DID#: [id number] CC: BRIANDA IZQUIERDO MD; JOSEPH MORRIS MD;*EndCC*
[2019-03-28] MEDS: Insulin NOVOLOG SS MODERATE Algorithm (SS with meals and bedtime) SC SCH ×4 (08:35→20:52)
[2019-03-28] MEDS: INSULIN ASPART [NOVOLOG] 3 ML PEN SC SCH ×3 (08:35→17:28)
[2019-03-28] MEDS: HEPARIN 5,000 UNIT/1 ML VIAL SC SCH ×2 (08:35→20:52)
[2019-03-28] MEDS: MULTIVIT/CA CARB/B CMPLX/FA TAB PO SCH (10:07)
[2019-03-28] MEDS: THIAMINE 100 MG TAB PO SCH (10:07)
[2019-03-28] MEDS: SEVELAMER CARBONATE 800 MG TABLET PO SCH ×4 (10:07→17:29)
[2019-03-28] MEDS: FERROUS SULFATE (EC) 325 MG TAB PO SCH ×2 (10:08→20:41)
[2019-03-28] MEDS: CHOLECALCIFEROL 2,000 UNIT CAP PO SCH (10:08)
[2019-03-28] MEDS: CEFTRIAXONE 1 GM/50 ML (PMX) 50 ML IVPB SCH (10:08)
--- NOTE | 2019-03-28 11:28 | PN ---
Date/Time of Note Date/Time of Note DATE: 03/28/19 TIME: 11:25 Objective Vitals Vital Signs Date Temp Pulse Resp B/P (MAP) Pulse Ox O2 O2 Flow FiO2 Time Delivery Rate 03/28/19 98.2 87 18 160/78 98 07:25 (105) 03/28/19 Room Air 05:30 03/25/19 8.0 18:42 Intake and Output 03/27/19 03/27/19 03/28/19 1515:00 23:00 07:00 IntakeIntake Total 1060 ml 660 ml 400 ml OutputOutput Total 1300 ml 3500 ml 650 ml BalanceBalance -240 ml -2840 ml -250 ml Results Result Diagram: 03/28/1951103/28/19511 Medications Medications Current Medications Vancomycin HCl (Vanco Iv Per Pharmacy) VANCOMYCIN PER PHARMACY PER PROTOCOL XX ; Start 03/23/19 at 17:30 IV Flush (NS 3 ml) 3 ml PER PROTOCOL IV ; Start 03/23/19 at 17:30 Ondansetron HCl (Zofran Inj) 4 mg Q6H PRN IV NAUSEA/VOMITING Last administered on 03/28/19 10:06; Admin Dose 4 MG; Start 03/23/19 at 17:30 Acetaminophen (Tylenol Tab) 650 mg Q6H PRN PO .PAIN 1-3 OR TEMP Last administered on 03/27/19 04:48; Admin Dose 650 MG; Start 03/23/19 at 17:30 Morphine Sulfate (morphine) 2 mg Q4H PRN IV .PAIN 7-10 Last administered on 03/24/19 23:55; Admin Dose 2 MG; Start 03/23/19 at 17:30 Diagnostic Test (Pha) (Accu-Chek) 1 ea 02 XX Last administered on 03/27/19 02:14; Admin Dose 1 EA; Start 03/24/19 at 02:00 Insulin Glargine (Lantus) 23 units DAILY@2000 SC Last administered on 03/27/19 20:46; Admin Dose 23 UNITS; Start 03/23/19 at 20:00 Ferrous Sulfate (Ferrous Sulfate (Ec)) 325 mg BID PO Last administered on 03/28/19 10:08; Admin Dose 325 MG; Start 03/23/19 at 21:00 Furosemide (Lasix) 40 mg BID PO Last administered on 03/28/19 08:19; Admin Dose 40 MG; Start 03/23/19 at 21:00 Multivit/Ca Carb/ B Cmplx/FA/Prenat (Radha-Grace) 1 tab DAILY PO Last adm inistered on 03/28/19 10:07; Admin Dose 1 TAB; Start 03/24/19 at 09:00 Thiamine HCl (Vitamin B1) 100 mg DAILY PO Last administered on 03/28/19 10:07; Admin Dose 100 MG; Start 03/24/19 at 09:00 Hydralazine HCl (Apresoline) 10 mg Q4H PRN IV sbp >160 Last administered on 03/27/19 23:54; Admin Dose 10 MG; Start 03/23/19 at 18:30 Cholecalciferol (Vitamin D) 2,000 unit DAILY PO Last administered on 03/28/19 10:08; Admin Dose 2,000 UNIT; Start 03/24/19 at 09:00 Epoetin Edouard-epbx (Retacrit (Esrd)) 10,000 unit MoWeFr@1700 SC Last administered on 03/26/19 17:39; Admin Dose 10,000 UNIT; Start 03/24/19 at 17:00 Atorvastatin Calcium (Lipitor) 10 mg HS PO Last administered on 03/27/19 20:43; Admin Dose 10 MG; Start 03/24/19 at 21:00 Heparin Sodium (Porcine) (Heparin (1000 Units/ml)) 4,500 unit AFTER DIALYSIS CATHETER Last administered on 03/27/19 21:45; Admin Dose 4,500 UNIT; Start 03/24/19 at 19:00 Mannitol 50 ml @ 50 mls/5 min WITH DIALYSIS PRN IV DISEQUILIBRIUM SYNDROME PPX; Start 03/24/19 at 19:00 Miscellaneous Information (* Miscellaneous Pharmacy Order) DURAMORPH: 0.2 MG SPI... GIVEN NEURAXIAL XX ; Start 03/25/19 at 18:30 Morphine Sulfate (morphine) 3 mg Q3H PRN IV SEVERE PAIN LEVEL 7-10 Last administered on 03/28/19 03:45; Admin Dose 3 MG; Start 03/25/19 at 19:00 Acetaminophen/ Hydrocodone Bitart ([place] (5/325)) 1 tab Q3H PRN PO MODERATE PAIN LEVEL 4-6 Last administered on 03/28/19 01:32; Admin Dose 1 TAB; Start 03/25/19 at 19:00 Insulin Aspart (Novolog Insulin Pen) (Adult SC Insulin - Moder... WITH MEALS BEDTIME SC Last administered on 03/28/19 08:35; Admin Dose 6 UNIT; Start 03/26/19 at 08:00 Hydralazine HCl (Apresoline) 10 mg Q4H PRN IV SBP >160; Start 03/26/19 at 10:00 Labetalol HCl (Labetalol) 10 mg Q4H PRN IV SBP >160 Last administered on 03/28/19 03:45; Admin Dose 10 MG; Start 03/26/19 at 10:00 Heparin Sodium (Porcine) (Heparin (5000 Units/1ml)) 5,000 unit BID SC Last administered on 03/28/19 08:35; Admin Dose 5,000 UNIT; Start 03/26/19 at 21:00 Sevelamer Carbonate (Renvela) 800 mg WITH MEALS PO Last administered on 03/28/19 10:09; Admin Dose 800 MG; Start 03/27/19 at 08:00 Insulin Aspart (Novolog Insulin Pen) 10 unit WITH MEALS SC Last administered on 03/28/19 08:35; Admin Dose 10 UNIT; Start 03/27/19 at 12:00 Nifedipine (Procardia Xl) 60 mg BID PO Last administered on 03/28/19 08:16; Admin Dose 60 MG; Start 03/27/19 at 21:00 Pantoprazole (Protonix Iv) 40 mg DAILY@06 IV ; Start 03/29/19 at 06:00 Metoprolol Tartrate (Lopressor) 75 mg BID PO Last administered on 03/28/19 08:19; Admin Dose 75 MG; Start 03/28/19 at 09:00 Ceftriaxone Sodium 50 ml @ 100 mls/hr Q24H IVPB Last administered on 03/28/19 10:08; Admin Dose 100 MLS/HR; Start 03/28/19 at 10:00 Vancomycin/Sodium Chloride 250 ml @ 83.333 mls/ hr ONCE IVPB ; Start 03/28/19 at 12:00; Stop 03/28/19 at 23:59 VTE Prophylaxis Risk score (from Nsg)>0 risk: 8 SCD applied (from Ns): No SCD contraindication: other Lines/Catheters IV Catheter Type: [place] in Place: No Assessment/Plan Hospital Course Subjective Patient doing well after surgery Objective Physical exam General: Patient is laying in bed and answers questions appropriately Mentation: Patient is alert and oriented 4, Head: Normocephalic atraumatic Eyes: EOMI, pupils reactive to light Neck: Supple, nontender, midline Respiratory: Clear to auscultation bilaterally Cardiovascular: regular rate, no obvious murmurs Gastrointestinal: non-tender to palpation, bowel sounds heard. Neurological: Moves all extremities spontaneously Musculoskeletal: Right lower extremity bandaged, open fracture Assessment and plan Right tib-fib open fracture, with surgical correction -Broad-spectrum IV antibiotic -Orthopedic surgeon notified of open fracture, s/p ortho surgery with pins -Infection disease consulted for antibiotic management end-stage renal disease, now on dialysis -Nephrology consulted -Patient agreeable for dialysis, permacath placed -Nephrology to manage -CM notified regarding dialysis chair Electrolyte derangement -Replete as needed -Nephrology on board Left foot skin wound -Patient's pain on his surgical leg grazed his left foot, wound care pending, already scarring up and healing. moderate to severe anemia - secondary to hemorrhagic cause secondary to open fracture -transfuse as needed Peripheral neuropathy -Moderate to severe as patient has very little feeling in his right lower extremity and left lower extremity that is chronic Diabetes mellitus -Lantus and insulin sliding scale as per patient's home regimen -adding mealtime insulin Disposition -doing well post surgery, ARU eval. need to keep inpatient for abx BRIANDA IZQUIERDO Mar 28, 2019 11:28
[2019-03-28] MEDS ORDERED: VANCOMYCIN 1.25 GM/NS 250 ML 250 ML IVPB SCH (12:00)
[2019-03-28] MEDS: hydrALAzine 20 MG INJ IV PRN (12:48)
--- NOTE | 2019-03-28 20:26 | CONS ---
Assessment/Plan Assessment/Plan Hospital Course (Demo Recall) ID PROGRESS NOTE CURRENT ABX: DAY # => Vanco IV + Ceftriaxone 24H INTERVAL SUMMARY * POD #3 -> s/p 03/25/19 open irrigation and debridment of the open fracture of tibia. open reduction of tibia fracture and immobilization a cast using pins plaster technique,right leg * PATIENT IS RESTING WITH EYES CLOSED ON PAIN MEDS=== Right leg cast * NO FEVER TODAY, WBC normal, B/P elevated DIAGNOSTIC IMAGING * 03/23/19 CXR: No acute cardiopulmonary disease. MICRO * 03/25/19 URINE CX: URINE CULTURE Final NO GROWTH AFTER 48 HOURS PHYSICAL EXAMINATION: GENERAL: VSS, NAD HEENT: AT, NC, NECK: Supple, CHEST: Rise symmetrical HEART: Pulse RRR ABDOMEN: EXTREMITIES: Warm, dry == Right leg cast SKIN: No rash, no diaphoresis ID ASSESSMENT 53 yo M admit with: 1. Open fracture of distal tibia and fibula, status post ORIF 03/25/19 2. Acute renal failure, possibly on chronic disease. 3. Diabetes. 4. Obesity. 5. Hypertension. (-) MRSA Nares ABX ALLERGIES: KNDA INVASIVES: Indwelling: RSC Benjy CURRENT ABX: DAY # =>Vanco IV + Ceftriaxone ID RECOMMENDATIONS/PLAN: 1. 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 Consultation Date/Type/Reason Admit Date/Time Mar 23, 2019 at 16:53 Initial Consult Date 03/23/19 Requesting Provider: BRIANDA IZQUIERDO Date/Time of Note DATE: 03/28/19 TIME: 20:25 Exam/Review of Systems Exam Vitals Vital Signs Date Temp Pulse Resp B/P (MAP) Pulse Ox O2 O2 Flow FiO2 Time Delivery Rate 03/28/19 98.0 76 18 148/78 98 16:07 (101) 03/28/19 Room Air 05:30 03/25/19 8.0 18:42 Intake and Output 03/27/19 03/27/19 03/28/19 1515:00 23:00 07:00 IntakeIntake Total 1060 ml 660 ml 400 ml OutputOutput Total 1300 ml 3500 ml 650 ml BalanceBalance -240 ml -2840 ml -250 ml Results Result Diagram: 8/4/19 0512 8/4/19 0512 Results 24hrs Laboratory Tests Test 03/27/19 20:41 03/28/19 05:12 03/28/19 08:05 03/28/19 12:20 Bedside Glucose 143 238 H 144 White Blood Count 10.1 Red Blood Count 2.89 L Hemoglobin 8.4 L Hematocrit 25.9 L Mean Corpuscular Volume 89.6 Mean Corpuscular 29.1 Hemoglobin Mean Corpuscular 32.4 Hemoglobin Concent Red Cell Distribution 14.2 Width Platelet Count 167 Mean Platelet Volume 12.0 H Immature Granulocytes % 1.200 H Neutrophils % 77.6 H Lymphocytes % 6.5 L Monocytes % 11.8 H Eosinophils % 2.5 Basophils % 0.4 Nucleated Red Blood 0.0 Cells % Immature Granulocytes # 0.120 H Neutrophils # 7.9 H Lymphocytes # 0.7 L Monocytes # 1.2 H Eosinophils # 0.3 Basophils # 0.0 Nucleated Red Blood 0.0 Cells # Sodium Level 134 L Potassium Level 3.8 Chloride Level 98 Carbon Dioxide Level 26 Anion Gap 10 Blood Urea Nitrogen 39 #H Creatinine 4.42 #H Est Glomerular Filtrat 14 L Rate mL/min Glucose Level 221 H Calcium Level 6.7 L Phosphorus Level 4.5 Magnesium Level 1.5 L Random Vancomycin Level 8.1 Test 03/28/19 17:21 Bedside Glucose 148 Medications Medication Current Medications Vancomycin HCl (Vanco Iv Per Pharmacy) VANCOMYCIN PER PHARMACY PER PROTOCOL XX ; Start 03/23/19 at 17:30 IV Flush (NS 3 ml) 3 ml PER PROTOCOL IV ; Start 03/23/19 at 17:30 Ondansetron HCl (Zofran Inj) 4 mg Q6H PRN IV NAUSEA/VOMITING Last administered on 03/28/19at 17:33; Admin Dose 4 MG; Start 03/23/19 at 17:30 Acetaminophen (Tylenol Tab) 650 mg Q6H PRN PO .PAIN 1-3 OR TEMP Last administered on 03/27/19at 04:48; Admin Dose 650 MG; Start 03/23/19 at 17:30 Morphine Sulfate (morphine) 2 mg Q4H PRN IV .PAIN 7-10 Last administered on 03/24/19at 23:55; Admin Dose 2 MG; Start 03/23/19 at 17:30 Diagnostic Test (Pha) (Accu-Chek) XX Last administered on 03/27/19 02:14; Admin Dose 1 EA; Start 03/24/19 at 02:00 Insulin Glargine (Lantus) 23 units DAILY@2000 SC Last administered on 03/27/19 20:46; Admin Dose 23 UNITS; Start 03/23/19 at 20:00 Ferrous Sulfate (Ferrous Sulfate (Ec)) 325 mg BID PO Last administered on 03/28/19 10:08; Admin Dose 325 MG; Start 03/23/19 at 21:00 Furosemide (Lasix) 40 mg BID PO Last administered on 03/28/19 08:19; Admin Dose 40 MG; Start 03/23/19 at 21:00 Multivit/Ca Carb/ B Cmplx/FA/Prenat (Radha-Grace) 1 tab DAILY PO Last administered on 03/28/19 10:07; Admin Dose 1 TAB; Start 03/24/19 at 09:00 Thiamine HCl (Vitamin B1) 100 mg DAILY PO Last administered on 03/28/19 10:07; Admin Dose 100 MG; Start 03/24/19 at 09:00 Hydralazine HCl (Apresoline) 10 mg Q4H PRN IV sbp >160 Last administered on 03/28/19 12:48; Admin Dose 10 MG; Start 03/23/19 at 18:30 Cholecalciferol (Vitamin D) 2,000 unit DAILY PO Last administered on 03/28/19 10:08; Admin Dose 2,000 UNIT; Start 03/24/19 at 09:00 Epoetin Edouard-epbx (Retacrit (Esrd)) 10,000 unit MoWeFr@1700 SC Last administered on 03/26/19 17:39; Admin Dose 10,000 UNIT; Start 03/24/19 at 17:00 Atorvastatin Calcium (Lipitor) 10 mg HS PO Last administered on 03/27/19 20:43; Admin Dose 10 MG; Start 03/24/19 at 21:00 Heparin Sodium (Porcine) (Heparin (1000 Units/ml)) 4,500 unit AFTER DIALYSIS CATHETER Last administered on 03/27/19 21:45; Admin Dose 4,500 UNIT; Start 03/24/19 at 19:00 Mannitol 50 ml @ 50 mls/5 min WITH DIALYSIS PRN IV DISEQUILIBRIUM SYNDROME PPX; Start 03/24/19 at 19:00 Miscellaneous Information (* Miscellaneous Pharmacy Order) DURAMORPH: 0.2 MG SPI... GIVEN NEURAXIAL XX ; Start 03/25/19 at 18:30 Morphine Sulfate (morphine) 3 mg Q3H PRN IV SEVERE PAIN LEVEL 7-10 Last administered on 03/28/19 03:45; Admin Dose 3 MG; Start 03/25/19 at 19:00 Acetaminophen/ Hydrocodone Bitart ([place] (5/325)) 1 tab Q3H PRN PO MODERATE PAIN LEVEL 4-6 Last administered on 03/28/19 01:32; Admin Dose 1 TAB; Start 03/25/19 at 19:00 Insulin Aspart (Novolog Insulin Pen) (Adult SC Insulin - Moder... WITH MEALS BEDTIME SC Last administered on 03/28/19 17:28; Admin Dose 2 UNIT; Start 03/26/19 at 08:00 Hydralazine HCl (Apresoline) 10 mg Q4H PRN IV SBP >160; Start 03/26/19 at 10:00 Labetalol HCl (Labetalol) 10 mg Q4H PRN IV SBP >160 Last administered on 03/28/19 03:45; Admin Dose 10 MG; Start 03/26/19 at 10:00 Heparin Sodium (Porcine) (Heparin (5000 Units/1ml)) 5,000 unit BID SC Last administered on 03/28/19 08:35; Admin Dose 5,000 UNIT; Start 03/26/19 at 21:00 Sevelamer Carbonate (Renvela) 800 mg WITH MEALS PO Last administered on 03/28 10:09; Admin Dose 800 MG; Start 03/27/19 at 08:00 Insulin Aspart (Novolog Insulin Pen) 10 unit WITH MEALS SC Last administered on 03/28/19 17:28; Admin Dose 10 UNIT; Start 03/27/19 at 12:00 Nifedipine (Procardia Xl) 60 mg BID PO Last administered on 03/28/19 08:16; Admin Dose 60 MG; Start 03/27/19 at 21:00 Pantoprazole (Protonix Iv) 40 mg DAILY@06 IV ; Start 03/29/19 at 06:00 Metoprolol Tartrate (Lopressor) 75 mg BID PO Last administered on 8/4/19at 08:19; Admin Dose 75 MG; Start 03/28/19 at 09:00 Ceftriaxone Sodium 50 ml @ 100 mls/hr Q24H IVPB Last administered on 03/28/19at 10:08; Admin Dose 100 MLS/HR; Start 03/28/19 at 10:00 Vancomycin/Sodium Chloride 250 ml @ 83.333 mls/ hr ONCE IVPB Last administered on 03/28/19at 13:11; Admin Dose 83.333 MLS/HR; Start 03/28/19 at 12:00; Stop 03/28 at 23:59 DANNY TOURE NP Mar 28, 2019 20:26
[2019-03-28] MEDS: ATORVASTATIN 10 MG TAB PO SCH (20:41)
[2019-03-28] MEDS: INSULIN GLARGINE [LANTus] (100 UNITS/ML) SYG SC SCH (20:52)
[2019-03-29] VITALS: BP 169/71; PULSE 72; RESP 20
[2019-03-29] MEDS: ACCU-CHEK XX SCH (02:00)
[2019-03-29 03:58] VITALS: BP 166/74; PULSE 62; RESP 20
[2019-03-29] MEDS: PANTOPRAZOLE 40 MG INJ IV SCH (06:31)
[2019-03-29] MEDS ORDERED: MAGNESIUM SULFATE 2 GM/50 ML 50 ML IVPB ONE (07:30)
[2019-03-29 07:42] VITALS: BP 127/75; PULSE 68; RESP 18
[2019-03-29] MEDS: Insulin NOVOLOG SS MODERATE Algorithm (SS with meals and bedtime) SC SCH ×4 (08:00→20:57)
--- NOTE | 2019-03-29 08:15 | PN ---
DATE: 03/29/2019 SUBJECTIVE: The patient is stable, no events overnight. The patient is pending hemodialysis today. No other events noted. OBJECTIVE: VITAL SIGNS: Blood pressure is 156/74, respirations 20, pulse 62, temperature 97.4. HEENT: Head is normocephalic. NECK: Supple. HEART: Regular rate. LUNGS: Show diminished breath sounds at the base. ABDOMEN: Soft, nontender to palpation without rebound or guarding. EXTREMITIES: Negative for clubbing, cyanosis, no edema. DERMATOLOGIC: No rashes. MUSCULOSKELETAL: No joint effusion. NEUROLOGIC: No change in exam. MEDICATIONS: Have been reviewed. LABORATORY DATA: Has been reviewed. IMAGING STUDIES: Have been reviewed. ASSESSMENT AND PLAN: 1. Renal failure, likely end-stage renal disease. Patient scheduled for dialysis today. We will di alyze 3 hours 2k bath, calcium 2.5. The patient's outpatient dialysis has been arranged at [facility]. 2. Hyperkalemia, resolved. 3. Metabolic acidosis, resolved. 4. Anemia. Continue to monitor hemoglobin and hematocrit levels. Continue Epogen. 5. Mineral bone disorder. Continue vitamin D analogs. Continue to monitor calcium and phosphorus l aliyaels. 6. Status post fall with right tib-fib fracture. The patient is status post surgical correction. C ontinue to monitor. 7. Diabetes. Continue current insulin regimen. 8. Hypertension. Continue current blood pressure regimen. Continue ultrafiltration dialysis. 9. Peripheral neuropathy. Continue medical management. Dictated By: KITTY EID DO NR/NTS Conf#: [id number] DID#: [id number] CC: BRIANDA IZQUIERDO MD;*EndCC*
[2019-03-29] MEDS: SEVELAMER CARBONATE 800 MG TABLET PO SCH ×3 (08:20→17:23)
[2019-03-29] MEDS: INSULIN ASPART [NOVOLOG] 3 ML PEN SC SCH ×3 (08:38→17:46)
[2019-03-29] MEDS: CEFTRIAXONE 1 GM/50 ML (PMX) 50 ML IVPB SCH (09:20)
[2019-03-29] MEDS: THIAMINE 100 MG TAB PO SCH (09:25)
[2019-03-29] MEDS: MULTIVIT/CA CARB/B CMPLX/FA TAB PO SCH (09:25)
[2019-03-29] MEDS: FUROSEMIDE 40 MG TAB PO SCH ×2 (09:26→20:55)
[2019-03-29] MEDS: CHOLECALCIFEROL 2,000 UNIT CAP PO SCH (09:26)
[2019-03-29] MEDS: FERROUS SULFATE (EC) 325 MG TAB PO SCH ×2 (09:26→20:56)
[2019-03-29] MEDS: HEPARIN 5,000 UNIT/1 ML VIAL SC SCH ×2 (09:41→21:58)
[2019-03-29] MEDS: NIFEdipine (XL) 30 MG TAB PO SCH ×2 (09:49→20:56)
[2019-03-29] MEDS: METOPROLOL 50 MG TAB PO SCH ×2 (09:49→20:56)
[2019-03-29] MEDS ORDERED: ALBUTEROL 0.083% (NEB) 2.5 MG/3 ML AMP HHN PRN (10:00)
--- NOTE | 2019-03-29 10:30 | PN ---
Date/Time of Note Date/Time of Note DATE: 03/29/19 TIME: 10:22 Assessment/Plan VTE Prophylaxis Risk score (from Ns)>0 risk: 1 SCD applied (from Ns): No SCD contraindicated: other Pharmacological prophylaxis: heparin Lines/Catheters IV Catheter Type (from [facility]): [place] Urinary Cath still in place: No Assessment/Plan Assessment/Plan 1. Right tib-fib open fracture s/p surgical correction - Ortho consultation appreciated and currently with right cast - ID on board and appreciate recommendations - ARU consultation placed 2. ESRD, new HD - Nephrology on board and appreciate recommendations. Plans for HD today - Permacath in place and CM consulted for HD chair as outpatient 3. Acute shortness of breath - no respiratory distress noted - will check CXR and order Neb PRN 4. Left foot skin wound - wound consult appreciated 5. Moderate to severe anemia - continue on epo and iron supplementation - hgb stable and no need for transfusion at this time 6. Peripheral neuropathy - chronic 7. Diabetes mellitus - A1c noted - continue current regime 8. Disposition - Will check CXR and order neb for acute SOB - ARU evaluation pending Result Diagram: 03/29/19 0524 03/29/19 0523 Results 24hrs Laboratory Tests Test 03/28/19 12:20 03/28/19 17:21 03/28/19 20:40 03/29/19 05:23 Bedside Glucose 144 148 195 Sodium Level 135 Potassium Level 3.7 Chloride Level 100 Carbon Dioxide Level 25 Anion Gap 10 Blood Urea Nitrogen 42 H Creatinine 5.34 H Est Glomerular Filtrat 11 L Rate mL/min Glucose Level 135 # Calcium Level 6.5 L Phosphorus Level 4.7 Magnesium Level 1.6 L Test 03/29/19 05:24 03/29/19 08:15 White Blood Count 9.8 Red Blood Count 2.78 L Hemoglobin 8.0 L Hematocrit 24.6 L Mean Corpuscular Volume 88.5 Mean Corpuscular 28.8 L Hemoglobin Mean Corpuscular 32.5 Hemoglobin Concent Red Cell Distribution 13.7 Width Platelet Count 167 Mean Platelet Volume 11.6 H Immature Granulocytes % 1.400 H Neutrophils % 77.5 H Lymphocytes % 8.1 L Monocytes % 10.0 Eosinophils % 2.6 Basophils % 0.4 Nucleated Red Blood 0.0 Cells % Immature Granulocytes # 0.140 H Neutrophils # 7.6 H Lymphocytes # 0.8 Monocytes # 1.0 H Eosinophils # 0.3 Basophils # 0.0 Nucleated Red Blood 0.0 Cells # Bedside Glucose 140 Subjective 24 Hr Interval Summary Free Text/Dictation Patient complaining of feeling shaky this am as well as shortness of breath. Admits to wheezing and dry cough. Exam/Review of Systems Exam Vitals Vital Signs Date Temp Pulse Resp B/P (MAP) Pulse Ox O2 O2 Flow FiO2 Time Delivery Rate 03/29/19 98.0 68 18 127/75 98 07:42 (92) 03/28/19 Room Air 05:30 03/25/19 8.0 18:42 Intake and Output 03/28/19 03/28/19 03/29/19 1515:00 23:00 07:00 IntakeIntake Total 1050 ml 500 ml OutputOutput Total 1500 ml 800 ml BalanceBalance -450 ml -300 ml Exam General: Patient is laying in bed and answers questions appropriately Neck: Supple, nontender, midline Respiratory: Clear to auscultation bilaterally. no wheezing appreciated Cardiovascular: regular rate and rhythm, no obvious murmurs Gastrointestinal: soft, non-tender to palpation, bowel sounds heard. Musculoskeletal: Right lower extremity bandaged Skin: no new rashes or lesions Results Results 24hrs Laboratory Tests Test 03/28/19 12:20 03/28/19 17:21 03/28/19 20:40 03/29/19 05:23 Bedside Glucose 144 148 195 Sodium Level 135 Potassium Level 3.7 Chloride Level 100 Carbon Dioxide Level 25 Anion Gap 10 Blood Urea Nitrogen 42 H Creatinine 5.34 H Est Glomerular Filtrat 11 L Rate mL/min Glucose Level 135 # Calcium Level 6.5 L Phosphorus Level 4.7 Magnesium Level 1.6 L Test 03/29/19 05:24 03/29/19 08:15 White Blood Count 9.8 Red Blood Count 2.78 L Hemoglobin 8.0 L Hematocrit 24.6 L Mean Corpuscular Volume 88.5 Mean Corpuscular 28.8 L Hemoglobin Mean Corpuscular 32.5 Hemoglobin Concent Red Cell Distribution 13.7 Width Platelet Count 167 Mean Platelet Volume 11.6 H Immature Granulocytes % 1.400 H Neutrophils % 77.5 H Lymphocytes % 8.1 L Monocytes % 10.0 Eosinophils % 2.6 Basophils % 0.4 Nucleated Red Blood 0.0 Cells % Immature Granulocytes # 0.140 H Neutrophils # 7.6 H Lymphocytes # 0.8 Monocytes # 1.0 H Eosinophils # 0.3 Basophils # 0.0 Nucleated Red Blood 0.0 Cells # Bedside Glucose 140 Medications Medication Current Medications Vancomycin HCl (Vanco Iv Per Pharmacy) VANCOMYCIN PER PHARMACY PER PROTOCOL XX ; Start 03/23/19 at 17:30 IV Flush (NS 3 ml) 3 ml PER PROTOCOL IV ; Start 03/23/19 at 17:30 Ondansetron HCl (Zofran Inj) 4 mg Q6H PRN IV NAUSEA/VOMITING Last administered on 03/28/19 17:33; Admin Dose 4 MG; Start 03/23/19 at 17:30 Acetaminophen (Tylenol Tab) 650 mg Q6H PRN PO .PAIN 1-3 OR TEMP Last administered on 03/27/19 04:48; Admin Dose 650 MG; Start 03/23/19 at 17:30 Morphine Sulfate (morphine) 2 mg Q4H PRN IV .PAIN 7-10 Last administered on 03/24/19 23:55; Admin Dose 2 MG; Start 03/23/19 at 17:30 Diagnostic Test (Pha) (Accu-Chek) 1 ea 02 XX Last administered on 03/27/19 02:14; Admin Dose 1 EA; Start 03/24/19 at 02:00 Insulin Glargine (Lantus) 23 units DAILY@2000 SC Last administered on 03/28/19 20:52; Admin Dose 23 UNITS; Start 03/23/19 at 20:00 Ferrous Sulfate (Ferrous Sulfate (Ec)) 325 mg BID PO Last administered on 03/29/19 09:26; Admin Dose 325 MG; Start 03/23/19 at 21:00 Furosemide (Lasix) 40 mg BID PO Last administered on 03/29/19 09:26; Admin Dose 40 MG; Start 03/23/19 at 21:00 Multivit/Ca Carb/ B Cmplx/FA/Prenat (Radha-Grace) 1 tab DAILY PO Last administered on 03/29/19 09:25; Admin Dose 1 TAB; Start 03/24/19 at 09:00 Thiamine HCl (Vitamin B1) 100 mg DAILY PO Last administered on 03/29/19 09:25; Admin Dose 100 MG; Start 03/24/19 at 09:00 Hydralazine HCl (Apresoline) 10 mg Q4H PRN IV sbp >160 Last administered on 03/28/19 12:48; Admin Dose 10 MG; Start 03/23/19 at 18:30 Cholecalciferol (Vitamin D) 2,000 unit DAILY PO Last administered on 03/29/19 09:26; Admin Dose 2,000 UNIT; Start 03/24/19 at 09:00 Epoetin Edouard-epbx (Retacrit (Esrd)) 10,000 unit MoWeFr@1700 SC Last admini stered on 03/26/19 17:39; Admin Dose 10,000 UNIT; Start 03/24/19 at 17:00 Atorvastatin Calcium (Lipitor) 10 mg HS PO Last administered on 03/28/19 20:41; Admin Dose 10 MG; Start 03/24/19 at 21:00 Heparin Sodium (Porcine) (Heparin (1000 Units/ml)) 4,500 unit AFTER DIALYSIS CATHETER Last administered on 03/27/19 21:45; Admin Dose 4,500 UNIT; Start 03/24/19 at 19:00 Mannitol 50 ml @ 50 mls/5 min WITH DIALYSIS PRN IV DISEQUILIBRIUM SYNDROME PPX; Start 03/24/19 at 19:00 Miscellaneous Information (* Miscellaneous Pharmacy Order) DURAMORPH: 0.2 MG SPI... GIVEN NEURAXIAL XX ; Start 03/25/19 at 18:30 Morphine Sulfate (morphine) 3 mg Q3H PRN IV SEVERE PAIN LEVEL 7-10 Last administered on 03/28/19 03:45; Admin Dose 3 MG; Start 03/25/19 at 19:00 Acetaminophen/ Hydrocodone Bitart ([place] (5/325)) 1 tab Q3H PRN PO MODERATE PAIN LEVEL 4-6 Last administered on 03/28/19 01:32; Admin Dose 1 TAB; Start 03/25/19 at 19:00 Insulin Aspart (Novolog Insulin Pen) (Adult SC Insulin - Moder... WITH MEALS BEDTIME SC Last administered on 03/28/19 20:52; Admin Dose 1 UNIT; Start 03/26/19 at 08:00 Hydralazine HCl (Apresoline) 10 mg Q4H PRN IV SBP >160; Start 03/26/19 at 10:00 Labetalol HCl (Labetalol) 10 mg Q4H PRN IV SBP >160 Last administered on 03/28/19 03:45; Admin Dose 10 MG; Start 03/26/19 at 10:00 Heparin Sodium (Porcine) (Heparin (5000 Units/1ml)) 5,000 unit BID SC Last administered on 03/29/19 09:41; Admin Dose 5,000 UNIT; Start 03/26/19 at 21:00 Sevelamer Carbonate (Renvela) 800 mg WITH MEALS PO Last administered on 03/29/19 08:20; Admin Dose 800 MG; Start 03/27/19 at 08:00 Insulin Aspart (Novolog Insulin Pen) 10 unit WITH MEALS SC Last administered on 03/29/19 08:38; Admin Dose 10 UNIT; Start 03/27/19 at 12:00 Nifedipine (Procardia Xl) 60 mg BID PO Last administered on 03/29/19 09:49; Admin Dose 60 MG; Start 03/27/19 at 21:00 Pantoprazole (Protonix Iv) 40 mg DAILY@06 IV Last administered on 03/29/19 06:31; Admin Dose 40 MG; Start 03/29/19 at 06:00 Metoprolol Tartrate (Lopressor) 75 mg BID PO Last administered on 03/29/19 09:49; Admin Dose 75 MG; Start 03/28/19 at 09:00 Ceftriaxone Sodium 50 ml @ 100 mls/hr Q24H IVPB Last administered on 03/29/19 09:20; Admin Dose 100 MLS/HR; Start 03/28/19 at 10:00 Albuterol (Proventil 0.083% (Neb)) 2.5 mg Q2H RESP THERAPY PRN HHN SHORTNESS OF BREATH; Start 03/29/19 at 10:00 RUY THOMAS MD Mar 29, 2019 10:30
[2019-03-29 11:25] VITALS: BP 165/74; PULSE 67; RESP 18
--- NOTE | 2019-03-29 11:35 | PN ---
Date/Time of Note Date/Time of Note DATE: 03/29/19 TIME: 11:32 Assessment/Plan Lines/Catheters IV Catheter Type (from Nrsg): Saline Lock [place] in Place (from Nrsg): No Assessment/Plan Assessment/Plan ESRD - permacath working well No IV's or blood draws in the left arm Will schedule for L arm AVF as an outpatient Followup with me in the wound center in 2 weeks for R 2nd toe wound / nail avulsion Subjective 24 Hr Interval Summary No c/o. Permacath working well. Exam/Review of Systems Vital Signs Vitals Vital Signs Date Temp Pulse Resp B/P (MAP) Pulse Ox O2 O2 Flow FiO2 Time Delivery Rate 03/29/19 98.0 67 18 165/74 97 11:25 (104) 03/28/19 Room Air 05:30 03/25/19 8.0 18:42 Intake and Output 03/28/19 03/28/19 03/29/19 1515:00 23:00 07:00 IntakeIntake Total 1050 ml 500 ml OutputOutput Total 1500 ml 800 ml BalanceBalance -450 ml -300 ml Exam Free Text/Dictation R leg in a cast R 2nd toe ulcer - stable Results Result Diagram: 03/29/19 0524 03/29/19 0523 EVE VARELA MD Mar 29, 2019 11:35
[2019-03-29] MEDS: hydrALAzine 20 MG INJ IV PRN (12:25)
--- NOTE | 2019-03-29 15:56 | CONS ---
Assessment/Plan Assessment/Plan Hospital Course (Demo Recall) SUBJECTIVE: Alert, feels good ANTIMICROBIALS: 1. Rocephin 2. Vancomycin. Indwelling: RSC Benjy PHYSICAL EXAMINATION: GENERAL: This is a morbidly obese, well-developed, middle-aged, white man who is awake, in no distress. HEAD: Atraumatic, normocephalic. NECK: Supple. CHEST: Rise symmetrical. Breath sounds diminished to bases. HEART: S1, S2. ABDOMEN: Soft, bowel tones present. EXTREMITIES: Right lower extremity dressing intact. ASSESSMENT: 1. Open fracture of distal tibia and fibula, status post ORIF 03/25/19 2. Acute renal failure, possibly on chronic disease. 3. Diabetes. 4. Obesity. 5. Hypertension. PLAN: The patient remains stable. Continue abx, HD per renal Consultation Date/Type/Reason Admit Date/Time Mar 23, 2019 at 16:53 Initial Consult Date 03/23/19 Type of Consult id Requesting Provider: BRIANDA IZQUIERDO Date/Time of Note DATE: 03/29/19 TIME: 15:55 Exam/Review of Systems Exam Vitals Vital Signs Date Temp Pulse Resp B/P (MAP) Pulse Ox O2 O2 Flow FiO2 Time Delivery Rate 03/29/19 98.0 67 18 165/74 97 11:25 (104) 03/28/19 Room Air 05:30 03/25/19 8.0 18:42 Intake and Output 03/28/19 03/28/19 03/29/19 1414:59 22:59 06:59 IntakeIntake Total 1050 ml 500 ml OutputOutput Total 1500 ml 800 ml BalanceBalance -450 ml -300 ml Results Result Diagram: 03/29/19 0524 03/29/19 0523 Results 24hrs Laboratory Tests Test 03/28/19 17:21 03/28/19 20:40 03/29/19 05:23 03/29/19 05:24 Bedside Glucose 148 195 Sodium Level 135 Potassium Level 3.7 Chloride Level 100 Carbon Dioxide Level 25 Anion Gap 10 Blood Urea Nitrogen 42 H Creatinine 5.34 H Est Glomerular Filtrat 11 L Rate mL/min Glucose Level 135 # Calcium Level 6.5 L Phosphorus Level 4.7 Magnesium Level 1.6 L White Blood Count 9.8 Red Blood Count 2.78 L Hemoglobin 8.0 L Hematocrit 24.6 L Mean Corpuscular Volume 88.5 Mean Corpuscular 28.8 L Hemoglobin Mean Corpuscular 32.5 Hemoglobin Concent Red Cell Distribution 13.7 Width Platelet Count 167 Mean Platelet Volume 11.6 H Immature Granulocytes % 1.400 H Neutrophils % 77.5 H Lymphocytes % 8.1 L Monocytes % 10.0 Eosinophils % 2.6 Basophils % 0.4 Nucleated Red Blood 0.0 Cells % Immature Granulocytes # 0.140 H Neutrophils # 7.6 H Lymphocytes # 0.8 Monocytes # 1.0 H Eosinophils # 0.3 Basophils # 0.0 Nucleated Red Blood 0.0 Cells # Test 03/29/19 08:15 03/29/19 12:14 Bedside Glucose 140 114 Medications Medication Current Medications Vancomycin HCl (Vanco Iv Per Pharmacy) VANCOMYCIN PER PHARMACY PER PROTOCOL XX ; Start 03/23/19 at 17:30 IV Flush (NS 3 ml) 3 ml PER PROTOCOL IV ; Start 03/23/19 at 17:30 Ondansetron HCl (Zofran Inj) 4 mg Q6H PRN IV NAUSEA/VOMITING Last administered on 03/28/19 17:33; Admin Dose 4 MG; Start 03/23/19 at 17:30 Acetaminophen (Tylenol Tab) 650 mg Q6H PRN PO .PAIN 1-3 OR TEMP Last administered on 03/27/19 04:48; Admin Dose 650 MG; Start 03/23/19 at 17:30 Morphine Sulfate (morphine) 2 mg Q4H PRN IV .PAIN 7-10 Last administered on 03/24/19 23:55; Admin Dose 2 MG; Start 03/23/19 at 17:30 Diagnostic Test (Pha) (Accu-Chek) 1 ea 02 XX Last administered on 03/27/19 02:14; Admin Dose 1 EA; Start 03/24/19 at 02:00 Insulin Glargine (Lantus) 23 units DAILY@2000 SC Last administered on 03/28/19 20:52; Admin Dose 23 UNITS; Start 03/23/19 at 20:00 Ferrous Sulfate (Ferrous Sulfate (Ec)) 325 mg BID PO Last administered on 03/29/19 09:26; Admin Dose 325 MG; Start 03/23/19 at 21:00 Furosemide (Lasix) 40 mg BID PO Last administered on 03/29/19 09:26; Admin Dose 40 MG; Start 03/23/19 at 21:00 Multivit/Ca Carb/ B Cmplx/FA/Prenat (Radha-Grace) 1 tab DAILY PO Last administered on 03/29/19 09:25; Admin Dose 1 TAB; Start 03/24/19 at 09:00 Thiamine HCl (Vitamin B1) 100 mg DAILY PO Last administered on 03/29/19 09:25; Admin Dose 100 MG; Start 03/24/19 at 09:00 Hydralazine HCl (Apresoline) 10 mg Q4H PRN IV sbp >160 Last administered on 03/29/19 12:25; Admin Dose 10 MG; Start 03/23/19 at 18:30 Cholecalciferol (Vitamin D) 2,000 unit DAILY PO Last administered on 03/29/19 09:26; Admin Dose 2,000 UNIT; Start 03/24/19 at 09:00 Epoetin Edouard-epbx (Retacrit (Esrd)) 10,000 unit MoWeFr@1700 SC Last administered on 03/26/19 17:39; Admin Dose 10,000 UNIT; Start 03/24/19 at 17:00 Atorvastatin Calcium (Lipitor) 10 mg HS PO Last administered on 03/28/19 20:41; Admin Dose 10 MG; Start 03/24/19 at 21:00 Heparin Sodium (Porcine) (Heparin (1000 Units/ml)) 4,500 unit AFTER DIALYSIS CATHETER Last administered on 03/27/19 21:45; Admin Dose 4,500 UNIT; Start 03/24/19 at 19:00 Mannitol 50 ml @ 50 mls/5 min WITH DIALYSIS PRN IV DISEQUILIBRIUM SYNDROME PPX; Start 03/24/19 at 19:00 Miscellaneous Information (* Miscellaneous Pharmacy Order) DURAMORPH: 0.2 MG SPI... GIVEN NEURAXIAL XX ; Start 03/25/19 at 18:30 Morphine Sulfate (morphine) 3 mg Q3H PRN IV SEVERE PAIN LEVEL 7-10 Last administered on 03/28/19 03:45; Admin Dose 3 MG; Start 03/25/19 at 19:00 Acetaminophen/ Hydrocodone Bitart ([place] (5/325)) 1 tab Q3H PRN PO MODERATE PAIN LEVEL 4-6 Last administered on 03/28/19 01:32; Admin Dose 1 TAB; Start 03/25/19 at 19:00 Insulin Aspart (Novolog Insulin Pen) (Adult SC Insulin - Moder... WITH MEALS BEDTIME SC Last administered on 03/28/19 20:52; Admin Dose 1 UNIT; Start 03/26/19 at 08:00 Hydralazine HCl (Apresoline) 10 mg Q4H PRN IV SBP >160; Start 03/26/19 at 10:00 Labetalol HCl (Labetalol) 10 mg Q4H PRN IV SBP >160 Last administered on 03/28/19 03:45; Admin Dose 10 MG; Start 03/26/19 at 10:00 Heparin Sodium (Porcine) (Heparin (5000 Units/1ml)) 5,000 unit BID SC Last administered on 03/29/19 09:41; Admin Dose 5,000 UNIT; Start 03/26/19 at 21:00 Sevelamer Carbonate (Renvela) 800 mg WITH MEALS PO Last administered on 03/29/19 12:17; Admin Dose 800 MG; Start 03/27/19 at 08:00 Insulin Aspart (Novolog Insulin Pen) 10 unit WITH MEALS SC Last administered on 03/29/19 13:36; Admin Dose 10 UNIT; Start 03/27/19 at 12:00 Nifedipine (Procardia Xl) 60 mg BID PO Last administered on 03/29/19 09:49; Admin Dose 60 MG; Start 03/27/19 at 21:00 Pantoprazole (Protonix Iv) 40 mg DAILY@06 IV Last administered on 03/29/19 06:31; Admin Dose 40 MG; Start 03/29/19 at 06:00 Metoprolol Tartrate (Lopressor) 75 mg BID PO Last administered on 03/29/19 09:49; Admin Dose 75 MG; Start 03/28/19 at 09:00 Ceftriaxone Sodium 50 ml @ 100 mls/hr Q24H IVPB Last administered on 03/29/19 09:20; Admin Dose 100 MLS/HR; Start 03/28/19 at 10:00 Albuterol (Proventil 0.083% (Neb)) 2.5 mg Q2H RESP THERAPY PRN HHN SHORTNESS OF BREATH; Start 03/29/19 at 10:00 ANGELA BURROUGHS NP Mar 29, 2019 15:56
[2019-03-29 16:33] VITALS: BP 154/72; PULSE 68; RESP 18
[2019-03-29] MEDS: EPOETIN ALFA-EPBX (ESRD) 10,000 UNIT/ML VIAL SC SCH (17:25)
[2019-03-29 20:00] VITALS: BP 157/75; PULSE 65; RESP 19
[2019-03-29] MEDS: ATORVASTATIN 10 MG TAB PO SCH (21:03)
[2019-03-29] MEDS: INSULIN GLARGINE [LANTus] (100 UNITS/ML) SYG SC SCH (21:59)
[2019-03-30] VITALS (19 sets, daily range): BP systolic 142–180; BP diastolic 64–89; PULSE 57–92; RESP 18–20
[2019-03-30] MEDS: ACCU-CHEK XX SCH (02:00)
[2019-03-30] MEDS: PANTOPRAZOLE 40 MG INJ IV SCH (06:33)
[2019-03-30] MEDS: Insulin NOVOLOG SS MODERATE Algorithm (SS with meals and bedtime) SC SCH ×4 (07:50→20:29)
[2019-03-30] MEDS: INSULIN ASPART [NOVOLOG] 3 ML PEN SC SCH ×3 (07:50→18:01)
[2019-03-30] MEDS: SEVELAMER CARBONATE 800 MG TABLET PO SCH ×3 (07:51→17:37)
--- NOTE | 2019-03-30 09:08 | PN ---
DATE: 03/30/2019 SUBJECTIVE: The patient is stable. The patient was unable to have dialysis yesterday. He will have dialysis today. OBJECTIVE: VITAL SIGNS: Blood pressure is 155/74, pulse 57, respirations 18, temperature 98.0. HEENT: Head is normocephalic. NECK: Supple. HEART: Regular rate. LUNGS: Show diminished breath sounds at the base. ABDOMEN: Soft, nontender to palpation without rebound or guarding. EXTREMITIES: Negative for clubbing, cyanosis, positive edema. DERMATOLOGIC: No rashes. MUSCULOSKELETAL: No joint effusion. NEUROLOGIC: No change in exam. MEDICATIONS: The patient's medications have been reviewed. LABORATORY DATA: Has been reviewed. IMAGING STUDIES: Have been reviewed. ASSESSMENT AND PLAN: 1. Renal failure. Likely end-stage renal disease. The patient is scheduled for dialysis today. We will dialyze 3 hours 2k bath, calcium 2.5. 2. Anemia. Monitor H and H levels. Give Epogen if needed. 3. Mineral bone disorder. Monitor calcium and phosphorus levels. Continue vitamin D analogs. 4. Right tib-fib fracture status post open reduction internal fixation. Continue current medical ma nagement. Continue supportive care, continue pain control 5. Diabetes. Continue current insulin regimen. 6. Hypertension. Blood pressure regimen. 7. Peripheral neuropathy. Continue medical management. Dictated By: KITTY EID DO NR/NTS Conf#: [id number] DID#: [id number] CC: RUY THOMAS MD; JOSEPH MORRIS MD; BRIANDA IZQUIERDO MD;*EndCC*
--- NOTE | 2019-03-30 11:46 | CONS ---
Assessment/Plan Assessment/Plan Hospital Course (Demo Recall) SUBJECTIVE: No events, looks comfortable, no fevers ANTIMICROBIALS: 1. Rocephin 2. Vancomycin. Indwelling: RSC Benjy PHYSICAL EXAMINATION: GENERAL: This is a morbidly obese, well-developed, middle-aged, white man who is awake, in no distress. HEAD: Atraumatic, normocephalic. NECK: Supple. CHEST: Rise symmetrical. Breath sounds diminished to bases. HEART: S1, S2. ABDOMEN: Soft, bowel tones present. EXTREMITIES: Right lower extremity dressing intact. ASSESSMENT: 1. Open fracture of distal tibia and fibula, status post ORIF 03/25/19 2. Acute renal failure, possibly on chronic disease. 3. Diabetes. 4. Obesity. 5. Hypertension. PLAN: The patient remains stable. Continue abx for 2 more days, HD per renal Consultation Date/Type/Reason Admit Date/Time Mar 23, 2019 at 16:53 Initial Consult Date 03/23/19 Type of Consult id Requesting Provider: BRIANDA IZQUIERDO Date/Time of Note DATE: 03/30/19 TIME: 11:45 Exam/Review of Systems Exam Vitals Vital Signs Date Temp Pulse Resp B/P (MAP) Pulse Ox O2 O2 Flow FiO2 Time Delivery Rate 03/30/19 98.0 57 18 155/74 96 07:09 (101) 03/30/19 2.0 28 02:13 03/28/19 Room Air 05:30 Intake and Output 03/29/19 03/29/19 03/30/19 1414:59 22:59 06:59 IntakeIntake Total 480 ml 610 ml 700 ml OutputOutput Total 320 ml 800 ml 700 ml BalanceBalance 160 ml -190 ml 0 ml Results Result Diagram: 03/29/19 0524 03/29/19 0523 Results 24hrs Laboratory Tests Test 03/29/19 12:14 03/29/19 17:21 03/29/19 20:53 03/30/19 07:48 Bedside Glucose 114 113 118 89 Medications Medication Current Medications Vancomycin HCl (Vanco Iv Per Pharmacy) VANCOMYCIN PER PHARMACY PER PROTOCOL XX ; Start 03/23/19 at 17:30 IV Flush (NS 3 ml) 3 ml PER PROTOCOL IV ; Start 03/23/19 at 17:30 Ondansetron HCl (Zofran Inj) 4 mg Q6H PRN IV NAUSEA/VOMITING Last administered on 03/28/19 17:33; Admin Dose 4 MG; Start 03/23/19 at 17:30 Acetaminophen (Tylenol Tab) 650 mg Q6H PRN PO .PAIN 1-3 OR TEMP Last administered on 03/27/19 04:48; Admin Dose 650 MG; Start 03/23/19 at 17:30 Morphine Sulfate (morphine) 2 mg Q4H PRN IV .PAIN 7-10 Last administered on 03/24/19 23:55; Admin Dose 2 MG; Start 03/23/19 at 17:30 Diagnostic Test (Pha) (Accu-Chek) 1 ea 02 XX Last administered on 03/27/19 02:14; Admin Dose 1 EA; Start 03/24/19 at 02:00 Insulin Glargine (Lantus) 23 units DAILY@2000 SC Last administered on 03/29/19 21:59; Admin Dose 23 UNITS; Start 03/23/19 at 20:00 Ferrous Sulfate (Ferrous Sulfate (Ec)) 325 mg BID PO Last administered on 03/29/19 20:56; Admin Dose 325 MG; Start 03/23/19 at 21:00 Furosemide (Lasix) 40 mg BID PO Last administered on 03/29/19 20:55; Admin Dose 40 MG; Start 03/23/19 at 21:00 Multivit/Ca Carb/ B Cmplx/FA/Prenat (Radha-Grace) 1 tab DAILY PO Last administered on 03/29/19 09:25; Admin Dose 1 TAB; Start 03/24/19 at 09:00 Thiamine HCl (Vitamin B1) 100 mg DAILY PO Last administered on 03/29/19 09:25; Admin Dose 100 MG; Start 03/24/19 at 09:00 Hydralazine HCl (Apresoline) 10 mg Q4H PRN IV sbp >160 Last administered on 03/29/19 12:25; Admin Dose 10 MG; Start 03/23/19 at 18:30 Cholecalciferol (Vitamin D) 2,000 unit DAILY PO Last administered on 03/29/19 09:26; Admin Dose 2,000 UNIT; Start 03/24/19 at 09:00 Epoetin Edouard-epbx (Retacrit (Esrd)) 10,000 unit MoWeFr@1700 SC Last administe red on 03/29/19 17:25; Admin Dose 10,000 UNIT; Start 03/24/19 at 17:00 Atorvastatin Calcium (Lipitor) 10 mg HS PO Last administered on 03/29/19 21:03; Admin Dose 10 MG; Start 03/24/19 at 21:00 Heparin Sodium (Porcine) (Heparin (1000 Units/ml)) 4,500 unit AFTER DIALYSIS CATHETER Last administered on 03/27/19 21:45; Admin Dose 4,500 UNIT; Start 03/24/19 at 19:00 Mannitol 50 ml @ 50 mls/5 min WITH DIALYSIS PRN IV DISEQUILIBRIUM SYNDROME PPX; Start 03/24/19 at 19:00 Miscellaneous Information (* Miscellaneous Pharmacy Order) DURAMORPH: 0.2 MG SPI... GIVEN NEURAXIAL XX ; Start 03/25/19 at 18:30 Morphine Sulfate (morphine) 3 mg Q3H PRN IV SEVERE PAIN LEVEL 7-10 Last administered on 03/28/19 03:45; Admin Dose 3 MG; Start 03/25/19 at 19:00 Acetaminophen/ Hydrocodone Bitart ([place] (5/325)) 1 tab Q3H PRN PO MODERATE PAIN LEVEL 4-6 Last administered on 03/28/19 01:32; Admin Dose 1 TAB; Start 03/25/19 at 19:00 Insulin Aspart (Novolog Insulin Pen) (Adult SC Insulin - Moder... WITH MEALS BEDTIME SC Last administered on 03/28/19 20:52; Admin Dose 1 UNIT; Start 03/26/19 at 08:00 Hydralazine HCl (Apresoline) 10 mg Q4H PRN IV SBP >160; Start 03/26/19 at 10:00 Labetalol HCl (Labetalol) 10 mg Q4H PRN IV SBP >160 Last administered on 03/28/19 03:45; Admin Dose 10 MG; Start 03/26/19 at 10:00 Heparin Sodium (Porcine) (Heparin (5000 Units/1ml)) 5,000 unit BID SC Last administered on 03/29/19 21:58; Admin Dose 5,000 UNIT; Start 03/26/19 at 21:00 Sevelamer Carbonate (Renvela) 800 mg WITH MEALS PO Last administered on 03/30/19 07:51; Admin Dose 800 MG; Start 03/27/19 at 08:00 Insulin Aspart (Novolog Insulin Pen) 10 unit WITH MEALS SC Last administered on 03/29/19 17:46; Admin Dose 10 UNIT; Start 03/27/19 at 12:00 Nifedipine (Procardia Xl) 60 mg BID PO Last administered on 03/29/19 20:56; A dmin Dose 60 MG; Start 03/27/19 at 21:00 Pantoprazole (Protonix Iv) 40 mg DAILY@06 IV Last administered on 03/30/19 06:33; Admin Dose 40 MG; Start 03/29/19 at 06:00 Metoprolol Tartrate (Lopressor) 75 mg BID PO Last administered on 03/29/19 20:56; Admin Dose 75 MG; Start 03/28/19 at 09:00 Ceftriaxone Sodium 50 ml @ 100 mls/hr Q24H IVPB Last administered on 03/29/19 09:20; Admin Dose 100 MLS/HR; Start 03/28/19 at 10:00 Albuterol (Proventil 0.083% (Neb)) 2.5 mg Q2H RESP THERAPY PRN HHN SHORTNESS OF BREATH; Start 03/29/19 at 10:00 Miscellaneous Information (*Rx Drug Level Order Reminder*) RANDOM VANCOMYCIN LEVEL ... 0500 ONCE XX ; Start 03/31/19 at 05:00; Stop 03/31/19 at 05:01 ANGELA BURROUGHS NP Mar 30, 2019 11:46
[2019-03-30] MEDS: HEPARIN 1000 UNITS/ML 10 ML INJ CATHETER SCH (12:41)
[2019-03-30] MEDS: CHOLECALCIFEROL 2,000 UNIT CAP PO SCH (12:44)
[2019-03-30] MEDS: THIAMINE 100 MG TAB PO SCH (12:44)
[2019-03-30] MEDS: NIFEdipine (XL) 30 MG TAB PO SCH ×2 (12:45→20:29)
[2019-03-30] MEDS: FUROSEMIDE 40 MG TAB PO SCH ×2 (12:45→20:28)
[2019-03-30] MEDS: MULTIVIT/CA CARB/B CMPLX/FA TAB PO SCH (12:46)
[2019-03-30] MEDS: FERROUS SULFATE (EC) 325 MG TAB PO SCH ×2 (12:46→20:28)
[2019-03-30] MEDS: METOPROLOL 50 MG TAB PO SCH ×2 (12:47→20:28)
[2019-03-30] MEDS: CEFTRIAXONE 1 GM/50 ML (PMX) 50 ML IVPB SCH (12:49)
[2019-03-30] MEDS: HEPARIN 5,000 UNIT/1 ML VIAL SC SCH ×2 (13:19→21:07)
--- NOTE | 2019-03-30 15:18 | PN ---
Date/Time of Note Date/Time of Note DATE: 03/30/19 TIME: 15:15 Assessment/Plan VTE Prophylaxis Risk score (from Nsg)>0 risk: 7 SCD applied (from Ns): No SCD contraindicated: other Pharmacological prophylaxis: heparin Lines/Catheters IV [facility] permacath Urinary Cath still in place: No Assessment/Plan Assessment/Plan 1. Right tib-fib open fracture s/p surgical correction - Ortho consultation appreciated and currently with right cast - ID on board and appreciate recommendations - CM on board for SNF placement. Continue physical therapy with inhouse 2. ESRD, new HD - Nephrology on board and appreciate recommendations. HD today - Permacath in place and outpatient HD chair arranged - will need to follow up with Dr. Flood as outpatient for fistula placement 3. Acute shortness of breath- resolved - no acute issues on CXR 4. Left foot skin wound - wound consult appreciated 5. Anemia of chronic disease- stable - continue on epo and iron supplementation - hgb stable and no need for transfusion at this time 6. Peripheral neuropathy - chronic 7. Diabetes mellitus - A1c noted - continue current regime 8. Disposition - Patient remains stable. CM on board for SNF placement Result Diagram: 03/29/19 0524 03/29/19 0523 Results 24hrs Laboratory Tests Test 03/29/19 17:21 03/29/19 20:53 03/30/19 07:48 03/30/19 12:10 Bedside Glucose 113 118 89 99 Subjective 24 Hr Interval Summary Free Text/Dictation Patient states hes feeling better compared to yesterday and denies any acute issues. Tolerating HD at time of interview. Exam/Review of Systems Exam Vitals Vital Signs Date Temp Pulse Resp B/P (MAP) Pulse Ox O2 O2 Flow FiO2 Time Delivery Rate 03/30/19 2.0 15:02 03/30/19 98.0 70 18 176/85 12:40 (115) 03/30/19 98 11:52 03/30/19 Room Air 09:00 03/30/19 28 02:13 Intake and Output 03/29/19 03/29/19 03/30/19 1515:00 23:00 07:00 IntakeIntake Total 480 ml 1010 ml 300 ml OutputOutput Total 320 ml 800 ml 700 ml BalanceBalance 160 ml 210 ml -400 ml Exam General: Patient is laying in bed and answers questions appropriately Neck: Supple, nontender, midline Respiratory: Clear to auscultation bilaterally. no wheezing appreciated Cardiovascular: regular rate and rhythm, no obvious murmurs Gastrointestinal: soft, non-tender to palpation, bowel sounds heard. Musculoskeletal: Right lower extremity bandaged Skin: no new rashes or lesions Results Results 24hrs Laboratory Tests Test 03/29/19 17:21 03/29/19 20:53 03/30/19 07:48 03/30/19 12:10 Bedside Glucose 113 118 89 99 Medications Medication Current Medications Vancomycin HCl (Vanco Iv Per Pharmacy) VANCOMYCIN PER PHARMACY PER PROTOCOL XX ; Start 03/23/19 at 17:30 IV Flush (NS 3 ml) 3 ml PER PROTOCOL IV ; Start 03/23/19 at 17:30 Ondansetron HCl (Zofran Inj) 4 mg Q6H PRN IV NAUSEA/VOMITING Last administered on 03/28/19 17:33; Admin Dose 4 MG; Start 03/23/19 at 17:30 Acetaminophen (Tylenol Tab) 650 mg Q6H PRN PO .PAIN 1-3 OR TEMP Last administered on 03/27/19 04:48; Admin Dose 650 MG; Start 03/23/19 at 17:30 Morphine Sulfate (morphine) 2 mg Q4H PRN IV .PAIN 7-10 Last administered on 03/24/19 23:55; Admin Dose 2 MG; Start 03/23/19 at 17:30 Diagnostic Test (Pha) (Accu-Chek) 1 ea 02 XX Last administered on 03/27/19 02:14; Admin Dose 1 EA; Start 03/24/19 at 02:00 Insulin Glargine (Lantus) 23 units DAILY@2000 SC Last administered on 03/29/19 21:59; Admin Dose 23 UNITS; Start 03/23/19 at 20:00 Ferrous Sulfate (Ferrous Sulfate (Ec)) 325 mg BID PO Last administered on 03/30/19 12:46; Admin Dose 325 MG; Start 03/23/19 at 21:00 Furosemide (Lasix) 40 mg BID PO Last administered on 03/30/19 12:45; Admin Dose 40 MG; Start 03/23/19 at 21:00 Multivit/Ca Carb/ B Cmplx/FA/Prenat (Radha-Grace) 1 tab DAILY PO Last administered on 03/30/19 12:46; Admin Dose 1 TAB; Start 03/24/19 at 09:00 Thiamine HCl (Vitamin B1) 100 mg DAILY PO Last administered on 03/30/19 12:44; Admin Dose 100 MG; Start 03/24/19 at 09:00 Hydralazine HCl (Apresoline) 10 mg Q4H PRN IV sbp >160 Last administered on 03/29/19 12:25; Admin Dose 10 MG; Start 03/23/19 at 18:30 Cholecalciferol (Vitamin D) 2,000 unit DAILY PO Last administered on 03/30/19 12:44; Admin Dose 2,000 UNIT; Start 03/24/19 at 09:00 Epoetin Edouard-epbx (Retacrit (Esrd)) 10,000 unit MoWeFr@1700 SC Last administered on 03/29/19 17:25; Admin Dose 10,000 UNIT; Start 03/24/19 at 17:00 Atorvastatin Calcium (Lipitor) 10 mg HS PO Last administered on 03/29/19 21:03; Admin Dose 10 MG; Start 03/24/19 at 21:00 Heparin Sodium (Porcine) (Heparin (1000 Units/ml)) 4,500 unit AFTER DIALYSIS CATHETER Last administered on 03/30/19 12:41; Admin Dose 4,500 UNIT; Start 03/24/19 at 19:00 Mannitol 50 ml @ 50 mls/5 min WITH DIALYSIS PRN IV DISEQUILIBRIUM SYNDROME PPX; Start 03/24/19 at 19:00 Miscellaneous Information (* Miscellaneous Pharmacy Order) DURAMORPH: 0.2 MG SPI... GIVEN NEURAXIAL XX ; Start 03/25/19 at 18:30 Morphine Sulfate (morphine) 3 mg Q3H PRN IV SEVERE PAIN LEVEL 7-10 Last administered on 03/28/19 03:45; Admin Dose 3 MG; Start 03/25/19 at 19:00 Acetaminophen/ Hydrocodone Bitart ([place] (5/325)) 1 tab Q3H PRN PO MODERATE PAIN LEVEL 4-6 Last administered on 03/28/19 01:32; Admin Dose 1 TAB; Start 03/25/19 at 19:00 Insulin Aspart (Novolog Insulin Pen) (Adult SC Insulin - Moder... WITH MEALS BEDTIME SC Last administered on 03/28/19 20:52; Admin Dose 1 UNIT; Start 03/26/19 at 08:00 Hydralazine HCl (Apresoline) 10 mg Q4H PRN IV SBP >160; Start 03/26/19 at 10:00 Labetalol HCl (Labetalol) 10 mg Q4H PRN IV SBP >160 Last administered on 03:45; Admin Dose 10 MG; Start 03/26/19 at 10:00 Heparin Sodium (Porcine) (Heparin (5000 Units/1ml)) 5,000 unit BID SC Last administered on 03/30/19 13:19; Admin Dose 5,000 UNIT; Start 03/26/19 at 21:00 Sevelamer Carbonate (Renvela) 800 mg WITH MEALS PO Last administered on 03/30/19 12:46; Admin Dose 800 MG; Start 03/27/19 at 08:00 Insulin Aspart (Novolog Insulin Pen) 10 unit WITH MEALS SC Last administered on 03/29/19 17:46; Admin Dose 10 UNIT; Start 03/27/19 at 12:00 Nifedipine (Procardia Xl) 60 mg BID PO Last administered on 03/30/19 12:45; Admin Dose 60 MG; Start 03/27/19 at 21:00 Pantoprazole (Protonix Iv) 40 mg DAILY@06 IV Last administered on 03/30/19 06:33; Admin Dose 40 MG; Start 03/29/19 at 06:00 Metoprolol Tartrate (Lopressor) 75 mg BID PO Last administered on 03/30/19 12:47; Admin Dose 75 MG; Start 03/28/19 at 09:00 Ceftriaxone Sodium 50 ml @ 100 mls/hr Q24H IVPB Last administered on 03/30/19 12:49; Admin Dose 100 MLS/HR; Start 03/28/19 at 10:00 Albuterol (Proventil 0.083% (Neb)) 2.5 mg Q2H RESP THERAPY PRN HHN SHORTNESS OF BREATH; Start 03/29/19 at 10:00 Miscellaneous Information (*Rx Drug Level Order Reminder*) RANDOM VANCOMYCIN LEVEL ... 0500 ONCE XX ; Start 03/31/19 at 05:00; Stop 8/7/19 at 05:01 RUY THOMAS MD Mar 30, 2019 15:18
--- NOTE | 2019-03-30 17:54 | PN ---
DATE: 03/30/2019 Second postop day, comfortable with the pins and plasters over right leg. The alignment of the fract ure is almost perfect and the position of the Steinmann pin is satisfactory. Okay to be discharged f rom orthopedics point. Further followup care as an outpatient in 2 weeks. Dictated By: JOSEPH MORRIS MD IK/NTS Conf#: [id number] DID#: [id number] CC: RUY THOMAS MD;*EndCC*
--- NOTE | 2019-03-30 17:56 | PN ---
DATE: 03/30/2019 Fifth postop day. Stays afebrile. Tolerating pins and plaster over the right lower extremity. Has been up with physical therapy. Okay to be discharged from orthopedics point for further followup as an outpatient. Dictated By: JOSEPH MORRIS MD IK/NTS Conf#: [id number] DID#: [id number] CC: BRIANDA IZQUIERDO MD; RUY THOMAS MD;*EndCC*
[2019-03-30] MEDS: ATORVASTATIN 10 MG TAB PO SCH (20:28)
[2019-03-30] MEDS: INSULIN GLARGINE [LANTus] (100 UNITS/ML) SYG SC SCH (21:08)
[2019-03-31] VITALS: BP 180/86; PULSE 66; RESP 18
[2019-03-31] MEDS: HYDROCODONE/APAP (5/325) TAB PO PRN ×3 (00:30→17:11)
[2019-03-31] MEDS: ACCU-CHEK XX SCH (02:00)
[2019-03-31 04:00] VITALS: BP 155/72; PULSE 57; RESP 18
[2019-03-31] MEDS: PANTOPRAZOLE 40 MG INJ IV SCH (05:22)
[2019-03-31] MEDS: SEVELAMER CARBONATE 800 MG TABLET PO SCH ×2 (07:47→11:43)
[2019-03-31 07:48] VITALS: BP 163/80; PULSE 61; RESP 20
[2019-03-31] MEDS: INSULIN ASPART [NOVOLOG] 3 ML PEN SC SCH ×2 (07:56→11:46)
[2019-03-31] MEDS: Insulin NOVOLOG SS MODERATE Algorithm (SS with meals and bedtime) SC SCH ×2 (07:57→11:39)
[2019-03-31] MEDS: CHOLECALCIFEROL 2,000 UNIT CAP PO SCH (08:52)
[2019-03-31] MEDS: NIFEdipine (XL) 30 MG TAB PO SCH (08:52)
[2019-03-31] MEDS: METOPROLOL 50 MG TAB PO SCH (08:53)
[2019-03-31] MEDS: THIAMINE 100 MG TAB PO SCH (08:54)
[2019-03-31] MEDS: FERROUS SULFATE (EC) 325 MG TAB PO SCH (08:54)
[2019-03-31] MEDS: FUROSEMIDE 40 MG TAB PO SCH (08:54)
[2019-03-31] MEDS: MULTIVIT/CA CARB/B CMPLX/FA TAB PO SCH (08:54)
[2019-03-31] MEDS: HEPARIN 5,000 UNIT/1 ML VIAL SC SCH (09:03)
--- NOTE | 2019-03-31 09:33 | PN ---
DATE: 03/31/2019 SUBJECTIVE: The patient is stable, no events overnight. No fevers, chills, nausea, vomiting. OBJECTIVE: VITAL SIGNS: Blood pressure is 155/72, respirations 18, pulse 57, temperature 98.1. HEENT: Head is normocephalic. NECK: Supple. HEART: Regular rate. LUNGS: Show diminished breath sounds at the base. ABDOMEN: Soft, nontender to palpation without rebound or guarding. EXTREMITIES: Negative for clubbing, cyanosis. Positive edema, improving. DERMATOLOGIC: No rashes. MUSCULOSKELETAL: No joint effusion. NEUROLOGIC: No change in exam. MEDICATIONS: The patient's medications have been reviewed. LABORATORY DATA: Have been reviewed. IMAGING STUDIES: Have been reviewed. ASSESSMENT AND PLAN: 1. Renal failure, now progressed towards end-stage renal disease. The patient had hemodialysis yest erday. Plan for dialysis again tomorrow. 2. Anemia. Monitor H and H levels. Continue Epogen. 3. Mineral bone disorder. Monitor calcium and phosphorus levels. Continue vitamin D analogs. 4. Right tib-fib fracture. Status post ORIF. Continue medical management. Continue supportive car e. 5. Diabetes. Continue current insulin regimen. 6. Hypertension. Continue current blood pressure regimen. 7. Peripheral neuropathy. Continue medical management. Dictated By: KITTY EID DO NR/NTS Conf#: [id number] DID#: [id number] CC: JOSEPH MORRIS MD; BRIANDA IZQUIERDO MD; RUY THOMAS MD;*EndCC*
--- NOTE | 2019-03-31 09:42 | PN ---
Date/Time of Note Date/Time of Note DATE: 03/31/19 TIME: 09:39 Assessment/Plan VTE Prophylaxis Risk score (from Nsg)>0 risk: 6 SCD applied (from Ns): No SCD contraindicated: other Pharmacological prophylaxis: heparin Lines/Catheters IV Catheter Type (from Nrsg): Saline Lock Urinary Cath still in place: No Assessment/Plan Assessment/Plan 1. Right tib-fib open fracture s/p surgical correction - Ortho consultation appreciated and currently with right cast. Okay for discharge with outpatient follow up - Will continue current pain control regime - ID on board and appreciate recommendations. Last day of antibiotics is 04/01 2. ESRD, new HD - Nephrology on board and appreciate recommendations. HD today - Permacath in place and outpatient HD chair arranged - will need to follow up with Dr. Flood as outpatient for fistula placement 3. Acute shortness of breath- resolved - no acute issues on CXR 4. Left foot skin wound - wound consult appreciated 5. Anemia of chronic disease- stable - continue on epo and iron supplementation - hgb stable and no need for transfusion at this time 6. Peripheral neuropathy - chronic 7. Diabetes mellitus - A1c noted - continue current regime 8. Disposition - Medically stable for discharge to [facility] Result Diagram: 03/31/1952103/31/19521 Results 24hrs Laboratory Tests Test 03/30/19 12:10 03/30/19 17:35 03/30/19 20:26 03/31/19 05:22 Bedside Glucose 99 208 114 White Blood Count 10.2 Red Blood Count 3.19 L Hemoglobin 9.3 L Hematocrit 28.2 L Mean Corpuscular Volume 88.4 Mean Corpuscular 29.2 Hemoglobin Mean Corpuscular 33.0 Hemoglobin Concent Red Cell Distribution 13.7 Width Platelet Count 226 # Mean Platelet Volume 10.9 H Immature Granulocytes % 0.900 H Neutrophils % 74.8 Lymphocytes % 10.5 L Monocytes % 10.5 Eosinophils % 2.7 Basophils % 0.6 Nucleated Red Blood 0.0 Cells % Immature Granulocytes # 0.090 H Neutrophils # 7.6 H Lymphocytes # 1.1 Monocytes # 1.1 H Eosinophils # 0.3 Basophils # 0.1 Nucleated Red Blood 0.0 Cells # Sodium Level 136 Potassium Level 3.7 Chloride Level 101 Carbon Dioxide Level 26 Anion Gap 9 Blood Urea Nitrogen 41 H Creatinine 4.89 H Glucose Level 152 Calcium Level 7.2 L Phosphorus Level 4.6 Magnesium Level 2.0 Albumin 3.0 L Random Vancomycin Level 9.9 Test 03/31/19 07:45 Bedside Glucose 148 Subjective 24 Hr Interval Summary Free Text/Dictation Patient is doing well and only issue is he was not able to sleep overnight. Exam/Review of Systems Exam Vitals Vital Signs Date Temp Pulse Resp B/P (MAP) Pulse Ox O2 O2 Flow FiO2 Time Delivery Rate 03/31/19 98.6 61 20 163/80 93 Room Air 07:48 (107) 03/30/19 2.0 15:02 03/30/19 28 02:13 Intake and Output 03/30/19 03/30/19 03/31/19 1515:00 23:00 07:00 IntakeIntake Total 1120 ml 240 ml 150 ml OutputOutput Total 2850 ml 400 ml 700 ml BalanceBalance -1730 ml -160 ml -550 ml Exam General: Patient is laying in bed and answers questions appropriately Neck: Supple, nontender, midline Respiratory: Clear to auscultation bilaterally. no wheezing appreciated Cardiovascular: regular rate and rhythm, no obvious murmurs Gastrointestinal: soft, non-tender to palpation, bowel sounds heard. Musculoskeletal: Right lower extremity cast in place Skin: no new rashes or lesions Results Results 24hrs Laboratory Tests Test 03/30/19 12:10 03/30/19 17:35 03/30/19 20:26 03/31/19 05:22 Bedside Glucose 99 208 114 White Blood Count 10.2 Red Blood Count 3.19 L Hemoglobin 9.3 L Hematocrit 28.2 L Mean Corpuscular Volume 88.4 Mean Corpuscular 29.2 Hemoglobin Mean Corpuscular 33.0 Hemoglobin Concent Red Cell Distribution 13.7 Width Platelet Count 226 # Mean Platelet Volume 10.9 H Immature Granulocytes % 0.900 H Neutrophils % 74.8 Lymphocytes % 10.5 L Monocytes % 10.5 Eosinophils % 2.7 Basophils % 0.6 Nucleated Red Blood 0.0 Cells % Immature Granulocytes # 0.090 H Neutrophils # 7.6 H Lymphocytes # 1.1 Monocytes # 1.1 H Eosinophils # 0.3 Basophils # 0.1 Nucleated Red Blood 0.0 Cells # Sodium Level 136 Potassium Level 3.7 Chloride Level 101 Carbon Dioxide Level 26 Anion Gap 9 Blood Urea Nitrogen 41 H Creatinine 4.89 H Glucose Level 152 Calcium Level 7.2 L Phosphorus Level 4.6 Magnesium Level 2.0 Albumin 3.0 L Random Vancomycin Level 9.9 Test 03/31/19 07:45 Bedside Glucose 148 Medications Medication Current Medications Vancomycin HCl (Vanco Iv Per Pharmacy) VANCOMYCIN PER PHARMACY PER PROTOCOL XX ; Start 03/23/19 at 17:30 IV Flush (NS 3 ml) 3 ml PER PROTOCOL IV ; Start 03/23/19 at 17:30 Ondansetron HCl (Zofran Inj) 4 mg Q6H PRN IV NAUSEA/VOMITING Last administered on 03/28/19 17:33; Admin Dose 4 MG; Start 03/23/19 at 17:30 Acetaminophen (Tylenol Tab) 650 mg Q6H PRN PO .PAIN 1-3 OR TEMP Last administered on 03/27/19 04:48; Admin Dose 650 MG; Start 03/23/19 at 17:30 Morphine Sulfate (morphine) 2 mg Q4H PRN IV .PAIN 7-10 Last administered on 03/24/19 23:55; Admin Dose 2 MG; Start 03/23/19 at 17:30 Diagnostic Test (Pha) (Accu-Chek) 1 ea 02 XX Last administered on 03/27/19 02:14; Admin Dose 1 EA; Start 03/24/19 at 02:00 Insulin Glargine (Lantus) 23 units DAILY@2000 SC Last administered on 03/30/19 21:08; Admin Dose 23 UNITS; Start 03/23/19 at 20:00 Ferrous Sulfate (Ferrous Sulfate (Ec)) 325 mg BID PO Last administered on 03/31/19 08:54; Admin Dose 325 MG; Start 03/23/19 at 21:00 Furosemide (Lasix) 40 mg BID PO Last administered on 03/31/19 08:54; Admin Dose 40 MG; Start 03/23/19 at 21:00 Multivit/Ca Carb/ B Cmplx/FA/Prenat (Radha-Grace) 1 tab DAILY PO Last administered on 03/31/19 08:54; Admin Dose 1 TAB; Start 03/24/19 at 09:00 Thiamine HCl (Vitamin B1) 100 mg DAILY PO Last administered on 03/31/19 08:54; Admin Dose 100 MG; Start 03/24/19 at 09:00 Cholecalciferol (Vitamin D) 2,000 unit DAILY PO Last administered on 03/31/19 08:52; Admin Dose 2,000 UNIT; Start 03/24/19 at 09:00 Epoetin Edouard-epbx (Retacrit (Esrd)) 10,000 unit MoWeFr@1700 SC Last administered on 03/29/19 17:25; Admin Dose 10,000 UNIT; Start 03/24/19 at 17:00 Atorvastatin Calcium (Lipitor) 10 mg HS PO Last administered on 03/30/19 20:28; Admin Dose 10 MG; Start 03/24/19 at 21:00 Heparin Sodium (Porcine) (Heparin (1000 Units/ml)) 4,500 unit AFTER DIALYSIS CATHETER Last administered on 03/30/19 12:41; Admin Dose 4,500 UNIT; Start 03/24/19 at 19:00 Mannitol 50 ml @ 50 mls/5 min WITH DIALYSIS PRN IV DISEQUILIBRIUM SYNDROME PPX; Start 03/24/19 at 19:00 Miscellaneous Information (* Miscellaneous Pharmacy Order) DURAMORPH: 0.2 MG SPI... GIVEN NEURAXIAL XX ; Start 03/25/19 at 18:30 Morphine Sulfate (morphine) 3 mg Q3H PRN IV SEVERE PAIN LEVEL 7-10 Last administered on 03/28/19 03:45; Admin Dose 3 MG; Start 03/25/19 at 19:00 Acetaminophen/ Hydrocodone Bitart ([place] (5/325)) 1 tab Q3H PRN PO MODERATE PAIN LEVEL 4-6 Last administered on 03/31/19 00:30; Admin Dose 1 TAB; Start 03/25/19 at 19:00 Insulin Aspart (Novolog Insulin Pen) (Adult SC Insulin - Moder... WITH MEALS BEDTIME SC Last administered on 03/31/19 07:57; Admin Dose 2 UNIT; Start 03/26/19 at 08:00 Hydralazine HCl (Apresoline) 10 mg Q4H PRN IV SBP >160; Start 03/26/19 at 10:00 Labetalol HCl (Labetalol) 10 mg Q4H PRN IV SBP >160 Last administered on 03/28/19 03:45; Admin Dose 10 MG; Start 03/26/19 at 10:00 Heparin Sodium (Porcine) (Heparin (5000 Units/1ml)) 5,000 unit BID SC Last administered on 03/31/19 09:03; Admin Dose 5,000 UNIT; Start 03/26/19 at 21:00 Sevelamer Carbonate (Renvela) 800 mg WITH MEALS PO Last administered on 03/31/19 07:47; Admin Dose 800 MG; Start 03/27/19 at 08:00 Insulin Aspart (Novolog Insulin Pen) 10 unit WITH MEALS SC Last administered on 03/31/19 07:56; Admin Dose 10 UNIT; Start 03/27/19 at 12:00 Nifedipine (Procardia Xl) 60 mg BID PO Last administered on 03/31/19 08:52; Admin Dose 60 MG; Start 03/27/19 at 21:00 Pantoprazole (Protonix Iv) 40 mg DAILY@06 IV Last administered on 03/31/19 05:22; Admin Dose 40 MG; Start 03/29/19 at 06:00 Metoprolol Tartrate (Lopressor) 75 mg BID PO Last administered on 03/31/19 08:53; Admin Dose 75 MG; Start 03/28/19 at 09:00 Ceftriaxone Sodium 50 ml @ 100 mls/hr Q24H IVPB Last administered on 03/30/19 12:49; Admin Dose 100 MLS/HR; Start 03/28/19 at 10:00 Albuterol (Proventil 0.083% (Neb)) 2.5 mg Q2H RESP THERAPY PRN HHN SHORTNESS OF BREATH; Start 03/29/19 at 10:00 RUY THOMAS MD Mar 31, 2019 09:42
--- NOTE | 2019-03-31 09:59 | PDOCDIS ---
Discharge Instructions DIAGNOSIS Discharge Diagnosis 1. Right tib-fib open fracture s/p surgical correction 2. ESRD, new HD 3. Acute shortness of breath- resolved 4. Left foot skin wound 5. Anemia of chronic disease- stable 6. Peripheral neuropathy 7. Diabetes mellitus CONDITION [id number] Patient Condition: [id number] Stable HOME CARE INSTRUCTIONS: [id number] Special Diet: Xphyr7y low sugar, low carb ACTIVITY: [id number] Activity Restrictions: [id number] No Restrictions FOLLOW UP/APPOINTMENTS Follow-up Plan 1. Follow up with your primary care physician in 1-2 weeks 2. Follow up with Dr. Flood in 2 weeks in wound care center. Please call the clinic to schedule an appointment. You will also need to discuss placement of AV fistula 3. Follow up with Dr. Santos in 1-2 weeks. Please call to schedule the appointment 4. Continue hemodialysis as previously scheduled. 5. If experiencing any concerning symptoms please go to the nearest emergency department REFERRALS Other Referrals Eddy Santos MD Specialty Orthopedic Surgery Comments Office Address [address] [place] [id number] Office Adriano Flood Jr, MD Specialty Vascular Surgery Comments Office Address [facility] [address] [place] [address] Office RUY THOMAS MD Mar 31, 2019 09:59
[2019-03-31] MEDS: CEFTRIAXONE 1 GM/50 ML (PMX) 50 ML IVPB SCH (10:37)
[2019-03-31 11:44] VITALS: BP 159/76; PULSE 59; RESP 20
--- NOTE | 2019-03-31 12:26 | CONS ---
Assessment/Plan Assessment/Plan Hospital Course (Demo Recall) SUBJECTIVE: Awake looks comfortable, no fevers ANTIMICROBIALS: 1. Rocephin 2. Vancomycin. Indwelling: RSC Benjy PHYSICAL EXAMINATION: GENERAL: This is a morbidly obese, well-developed, middle-aged, white man who is awake, in no distress. HEAD: Atraumatic, normocephalic. NECK: Supple. CHEST: Rise symmetrical. Breath sounds diminished to bases. HEART: S1, S2. ABDOMEN: Soft, bowel tones present. EXTREMITIES: Right lower extremity dressing intact. ASSESSMENT: 1. Open fracture of distal tibia and fibula, status post ORIF 03/25/19 2. Acute renal failure, possibly on chronic disease. 3. Diabetes. 4. Obesity. 5. Hypertension. PLAN: The patient remains stable, dc abx, f/u ortho rec-s Consultation Date/Type/Reason Admit Date/Time Mar 23, 2019 at 16:53 Initial Consult Date 03/23/19 Type of Consult id Requesting Provider: BRIANDA IZQUIERDO Date/Time of Note DATE: 03/31/19 TIME: 12:25 Exam/Review of Systems Exam Vitals Vital Signs Date Temp Pulse Resp B/P (MAP) Pulse Ox O2 O2 Flow FiO2 Time Delivery Rate 03/31/19 98.0 59 20 159/76 97 Room Air 11:44 (103) 03/30/19 2.0 15:02 03/30/19 28 02:13 Intake and Output 03/30/19 03/30/19 03/31/19 1515:00 23:00 07:00 IntakeIntake Total 1120 ml 240 ml 150 ml OutputOutput Total 2850 ml 400 ml 700 ml BalanceBalance -1730 ml -160 ml -550 ml Results Result Diagram: 03/31/19 0522 03/31/19 0522 Results 24hrs Laboratory Tests Test 03/30/19 17:35 03/30/19 20:26 03/31/19 05:22 03/31/19 07:45 Bedside Glucose 208 114 148 White Blood Count 10.2 Red Blood Count 3.19 L Hemoglobin 9.3 L Hematocrit 28.2 L Mean Corpuscular Volume 88.4 Mean Corpuscular 29.2 Hemoglobin Mean Corpuscular 33.0 Hemoglobin Concent Red Cell Distribution 13.7 Width Platelet Count 226 # Mean Platelet Volume 10.9 H Immature Granulocytes % 0.900 H Neutrophils % 74.8 Lymphocytes % 10.5 L Monocytes % 10.5 Eosinophils % 2.7 Basophils % 0.6 Nucleated Red Blood 0.0 Cells % Immature Granulocytes # 0.090 H Neutrophils # 7.6 H Lymphocytes # 1.1 Monocytes # 1.1 H Eosinophils # 0.3 Basophils # 0.1 Nucleated Red Blood 0.0 Cells # Sodium Level 136 Potassium Level 3.7 Chloride Level 101 Carbon Dioxide Level 26 Anion Gap 9 Blood Urea Nitrogen 41 H Creatinine 4.89 H Glucose Level 152 Calcium Level 7.2 L Phosphorus Level 4.6 Magnesium Level 2.0 Albumin 3.0 L Random Vancomycin Level 9.9 Test 03/31/19 11:37 Bedside Glucose 103 Medications Medication Current Medications Vancomycin HCl (Vanco Iv Per Pharmacy) VANCOMYCIN PER PHARMACY PER PROTOCOL XX ; Start 03/23/19 at 17:30 IV Flush (NS 3 ml) 3 ml PER PROTOCOL IV ; Start 03/23/19 at 17:30 Ondansetron HCl (Zofran Inj) 4 mg Q6H PRN IV NAUSEA/VOMITING Last administered on 03/28/19 17:33; Admin Dose 4 MG; Start 03/23/19 at 17:30 Acetaminophen (Tylenol Tab) 650 mg Q6H PRN PO .PAIN 1-3 OR TEMP Last administered on 03/27/19 04:48; Admin Dose 650 MG; Start 03/23/19 at 17:30 Morphine Sulfate (morphine) 2 mg Q4H PRN IV .PAIN 7-10 Last administered on 03/24/19 23:55; Admin Dose 2 MG; Start 03/23/19 at 17:30 Diagnostic Test (Pha) (Accu-Chek) 1 ea 02 XX Last administered on 03/27/19 02:14; Admin Dose 1 EA; Start 03/24/19 at 02:00 Insulin Glargine (Lantus) 23 units DAILY@2000 SC Last administered on 03/30/19 21:08; Admin Dose 23 UNITS; Start 03/23/19 at 20:00 Ferrous Sulfate (Ferrous Sulfate (Ec)) 325 mg BID PO Last administered on 03/31/19 08:54; Admin Dose 325 MG; Start 03/23/19 at 21:00 Furosemide (Lasix) 40 mg BID PO Last administered on 03/31/19 08:54; Admin Dose 40 MG; Start 03/23/19 at 21:00 Multivit/Ca Carb/ B Cmplx/FA/Prenat (Radha-Grace) 1 tab DAILY PO Last administered on 03/31/19 08:54; Admin Dose 1 TAB; Start 03/24/19 at 09:00 Thiamine HCl (Vitamin B1) 100 mg DAILY PO Last administered on 03/31/19 08:54; Admin Dose 100 MG; Start 03/24/19 at 09:00 Cholecalciferol (Vitamin D) 2,000 unit DAILY PO Last administered on 03/31/19 08:52; Admin Dose 2,000 UNIT; Start 03/24/19 at 09:00 Epoetin Edouard-epbx (Retacrit (Esrd)) 10,000 unit MoWeFr@1700 SC Last administered on 03/29/19 17:25; Admin Dose 10,000 UNIT; Start 03/24/19 at 17:00 Atorvastatin Calcium (Lipitor) 10 mg HS PO Last administered on 03/30/19 20:28; Admin Dose 10 MG; Start 03/24/19 at 21:00 Heparin Sodium (Porcine) (Heparin (1000 Units/ml)) 4,500 unit AFTER DIALYSIS CATHETER Last administered on 03/30/19 12:41; Admin Dose 4,500 UNIT; Start 03/24/19 at 19:00 Mannitol 50 ml @ 50 mls/5 min WITH DIALYSIS PRN IV DISEQUILIBRIUM SYNDROME PPX; Start 03/24/19 at 19:00 Miscellaneous Information (* Miscellaneous Pharmacy Order) DURAMORPH: 0.2 MG SPI... GIVEN NEURAXIAL XX ; Start 03/25/19 at 18:30 Morphine Sulfate (morphine) 3 mg Q3H PRN IV SEVERE PAIN LEVEL 7-10 Last administered on 03/28/19 03:45; Admin Dose 3 MG; Start 03/25/19 at 19:00 Acetaminophen/ Hydrocodone Bitart ([place] (5/325)) 1 tab Q3H PRN PO MODERATE P AIN LEVEL 4-6 Last administered on 03/31/19 00:30; Admin Dose 1 TAB; Start 03/25/19 at 19:00 Insulin Aspart (Novolog Insulin Pen) (Adult SC Insulin - Moder... WITH MEALS BEDTIME SC Last administered on 03/31/19 07:57; Admin Dose 2 UNIT; Start 03/26/19 at 08:00 Hydralazine HCl (Apresoline) 10 mg Q4H PRN IV SBP >160; Start 03/26/19 at 10:00 Labetalol HCl (Labetalol) 10 mg Q4H PRN IV SBP >160 Last administered on 03/28/19 03:45; Admin Dose 10 MG; Start 03/26/19 at 10:00 Heparin Sodium (Porcine) (Heparin (5000 Units/1ml)) 5,000 unit BID SC Last administered on 03/31/19 09:03; Admin Dose 5,000 UNIT; Start 03/26/19 at 21:00 Sevelamer Carbonate (Renvela) 800 mg WITH MEALS PO Last administered on 03/31/19 11:43; Admin Dose 800 MG; Start 03/27/19 at 08:00 Insulin Aspart (Novolog Insulin Pen) 10 unit WITH MEALS SC Last administered on 03/31/19 11:46; Admin Dose 10 UNIT; Start 03/27/19 at 12:00 Nifedipine (Procardia Xl) 60 mg BID PO Last administered on 03/31/19 08:52; Admin Dose 60 MG; Start 03/27/19 at 21:00 Metoprolol Tartrate (Lopressor) 75 mg BID PO Last administered on 03/31/19 08:53; Admin Dose 75 MG; Start 03/28/19 at 09:00 Ceftriaxone Sodium 50 ml @ 100 mls/hr Q24H IVPB Last administered on 03/31/19 10:37; Admin Dose 100 MLS/HR; Start 03/28/19 at 10:00 Albuterol (Proventil 0.083% (Neb)) 2.5 mg Q2H RESP THERAPY PRN HHN SHORTNESS OF BREATH; Start 03/29/19 at 10:00 Pantoprazole (Protonix Tab) 40 mg DAILY@06 PO ; Start 04/01/19 at 06:00 ANGELA BURROUGHS NP Mar 31, 2019 12:26
[2019-03-31] MEDS ORDERED: VANCOMYCIN 1.25 GM/NS 250 ML 250 ML IVPB ONE (14:00)
[2019-03-31 15:31] VITALS: BP 126/73; PULSE 64; RESP 20
--- NOTE | 2019-03-31 17:54 | DS ---
Date/Time of Note Date/Time of Note DATE: 03/31/19 TIME: 17:54 Discharge Summary Admission/Discharge Info Admit Date/Time Mar 23, 2019 at 16:53 Discharge Date/Time 03/31/19 Discharge Diagnosis 1. Right tib-fib open fracture s/p surgical correction 2. ESRD, new HD 3. Acute shortness of breath- resolved 4. Left foot skin wound 5. Anemia of chronic disease- stable 6. Peripheral neuropathy 7. Diabetes mellitus Patient Condition: Stable Consults Podiatry- Dr. March Cardiology- Dr. Cloud Infectious disease- Dr. Camargo Orthopedic Surgery- Dr. Santos Nephrology- Dr. Hanson Vascular Surgery- Dr. Flood Procedures DATE OF OPERATION: 03/24/2019 PREOPERATIVE DIAGNOSIS: End-stage renal disease. POSTOPERATIVE DIAGNOSIS: End-stage renal disease. PROCEDURE PERFORMED: Insertion of right internal jugular vein tunneled hemodialysis catheter using ultrasound and fluoroscopic guidance. SURGEON: Adriano Flood MD. DATE OF OPERATION: 03/25/2019 PREOPERATIVE DIAGNOSIS: Open fracture involving the tibia and fibula of the right leg. POSTOPERATIVE DIAGNOSIS: Open fracture involving the tibia and fibula of the right leg. PROCEDURES PERFORMED: 1. Open irrigation and debridement of the open fracture of the right tibia. 2. Open reduction of the fracture involving the distal tibia. 3. Immobilization of the right lower extremity in a short leg cast using pins and plaster technique. ANESTHESIA: General anesthesia. Hx of Present Illness Patient is a male with a past medical history significant for diabetes mellitus, severe peripheral neuropathy, anemia, CKD who presents to [facility] for traumatic fall and open fracture. Patient has an open right tib-fib fracture however currently is not stating that he is in any pain due to severe neuropathy. Patient states that for quite a while he has not been able to have much feeling in his lower extremity however bit worse on his right where his fractures. Patient states that he was try to get in his truck, lost his balance and fell and subsequently broke his leg. Patient currently denies any shortness of breath, denies chest pain, denies nausea vomiting, denies headache, denies vision changes, denies abdominal pain. Hospital Course Patient was admitted for repair of acute fracture and Orthopedic surgery was consulted. Infectious disease was consulted for antibiotic management given traumatic open fracture. patient was taken for surgical intervention with no acute intraoperative complications after he was medically cleared by Cardiology. Nephrology was consulted given patient was ESRD but had not initiated hemodialysis but was open to starting while inhouse. Access was placed for Vascular surgery and HD was initiated without any complications. Patients insulin dose was adjusted during hospitalization for better control of his glucose. Patient was evaluated by podiatry given left foot wound and no surgical intervention was required. patient was evaluated by Physical therapy who recommended SNF placement. Patient was evaluated by ARU but was not accepted. Patient was accepted to SNF and continued on 1 more day of antibiotics to complete course of treatment. Patients vitals remained stable and he was cleared for discharge from ortho standpoint. He was recommended to follow up as outpatient with Ortho, vascular surgery, and nephrology for HD. Patient was discharged to SNF in good condition. Home Meds Reported Medications Insulin Glargine* (Lantus*) 100 Unit/Ml Soln, 22 UNIT SC QHS, #1 VIAL 03/23/19 Insulin Lispro (Humalog) 100 Unit/1 Ml Cartridge, 0 SQ SLIDING SCALE, EA WITH MEALS 03/23/19 Cholecalciferol (Vitamin D3) (Vitamin D-3) 2,000 Unit Tablet, 2000 UNIT PO DAILY, TAB 03/23/19 Thiamine* (Vitamin B-1*) 100 Mg Tablet, 100 MG PO DAILY, TAB 03/23/19 Furosemide* (Furosemide*) 40 Mg Tablet, 40 MG PO BID, TAB 03/23/19 Multivit/Ca Carb/B Cmplx/Fa* (Radha-Grace*) 1 Tab Tab, 1 TAB PO DAILY, TAB 03/23/19 Ferrous Sulfate* (Ferrous Sulfate*) 325 Mg Tabec, 325 MG PO BID, TAB 03/23/19 Metoprolol Tartrate* (Lopressor*) 25 Mg Tab, 25 MG PO BID, #60 TAB 03/23/19 Hydralazine Hcl* (Hydralazine Hcl*) 50 Mg Tab, 50 MG PO BID PRN for HTN, #60 TAB 03/23/19 Follow-up Plan 1. Follow up with your primary care physician in 1-2 weeks 2. Follow up with Dr. Flood in 2 weeks in wound care center. Please call the clinic to schedule an appointment. You will also need to discuss placement of AV fistula 3. Follow up with Dr. Santos in 1-2 weeks. Please call to schedule the appointment 4. Continue hemodialysis as previously scheduled. 5. If experiencing any concerning symptoms please go to the nearest emergency department Primary Care Provider Care Physician No Primary Time spent on discharge: > 30 minutes Pending Labs Laboratory Tests Test 03/30/19 20:26 03/31/19 05:22 03/31/19 07:45 03/31/19 11:37 Bedside 114 148 103 Glucose mg/dL (70-220) mg/dL (70-220) mg/dL (70-220) White Blood 10.2 Count 10^3/ul (4.8-1 0.8) Red Blood 3.19 Count 10^6/ul (4.70- 6.10) Hemoglobin 9.3 g/dl (14.0-18. 0) Hematocrit 28.2 % (42.0-52.0) Mean 88.4 Corpuscular fl (82.0-101.0 Volume ) Mean 29.2 Corpuscular pg (29.0-33.0) Hemoglobin Mean 33.0 Corpuscular g/dl (32.0-37. Hemoglobin Conc 0) ent Red Cell 13.7 Distribution % (11.5-14.5) Width Platelet Count 226 10^3/UL (140-4 15) Mean Platelet 10.9 Volume fl (7.4-10.4) Immature 0.900 Granulocytes % % (0.001-0.429 ) Neutrophils % 74.8 % (39.0-77.0) Lymphocytes % 10.5 % (15.0-51.0) Monocytes % 10.5 % (0.0-11.0) Eosinophils % 2.7 % (0.0-7.0) Basophils % 0.6 % (0.0-2.0) Nucleated Red 0.0 Blood Cells % /100WBC (0.0-0 .0) Immature 0.090 Granulocytes # 10^3/ul (0.0-0 .031) Neutrophils # 7.6 10^3/ul (1.6-7 .5) Lymphocytes # 1.1 10^3/ul (0.8-2 .9) Monocytes # 1.1 10^3/ul (0.3-0 .9) Eosinophils # 0.3 10^3/ul (0.0-0 .5) Basophils # 0.1 10^3/ul (0.0-0 .1) Nucleated Red 0.0 Blood Cells # 10^3/ul (0.0-0 .0) Sodium Level 136 mmol/L (135-14 4) Potassium 3.7 Level mmol/L (3.5-5. 1) Chloride Level 101 mmol/L (97-110 ) Carbon Dioxide 26 Level mmol/L (21-31) Anion Gap 9 (5-13) Blood Urea 41 Nitrogen mg/dl (7-20) Creatinine 4.89 mg/dl (0.61-1. 24) Glucose Level 152 mg/dl (70-220) Calcium Level 7.2 mg/dl (8.4-10. 2) Phosphorus 4.6 Level mg/dl (2.5-4.9 ) Magnesium 2.0 Level mg/dl (1.7-2.5 ) Albumin 3.0 g/dl (3.3-4.9) Random 9.9 ug/ml Vancomycin Level RUY THOMAS MD Mar 31, 2019 17:54
[2019-04-01] MEDS ORDERED: PANTOPRAZOLE (EC) 40 MG TAB PO SCH (06:00)
== END 2019-03-31 18:03 | DRG 492 ==
LOC: E/R 14:47 → 6WM 16:53 → SUATTDRO 17:22 → CANRESERV 17:33 → EDBEDREQSVC 17:39
PROVIDERS: ADMIT Internal Medicine; ATTEND Internal Medicine
PROC: 30233N1 Transfusion of Nonautologous Red Blood Cells into Peripheral Vein, Percutaneous Approach (ICD-10-PCS; 2019-03-23)
PROC: 0JH63XZ Insertion of Tunneled Vascular Access Device into Chest Subcutaneous Tissue and Fascia, Percutaneous Approach (ICD-10-PCS; 2019-03-24)
PROC: 02H633Z Insertion of Infusion Device into Right Atrium, Percutaneous Approach (ICD-10-PCS; 2019-03-24)
PROC: B543ZZA Ultrasonography of Right Jugular Veins, Guidance (ICD-10-PCS; 2019-03-24)
PROC: B513ZZA Fluoroscopy of Right Jugular Veins, Guidance (ICD-10-PCS; 2019-03-24)
PROC: 30233K1 Transfusion of Nonautologous Frozen Plasma into Peripheral Vein, Percutaneous Approach (ICD-10-PCS; 2019-03-24)
PROC: 0QSG04Z Reposition Right Tibia with Internal Fixation Device, Open Approach (ICD-10-PCS; principal; 2019-03-25 14:30)
PROC: 5A1D70Z Performance of Urinary Filtration, Intermittent, Less than 6 Hours Per Day (ICD-10-PCS; 2019-03-26)
DX: S82.391B Other fracture of lower end of right tibia, initial encounter for open fracture type I or II (principal); S82.831B Other fracture of upper and lower end of right fibula, initial encounter for open fracture type I or II; N18.6 End stage renal disease; Z68.41 Body mass index [BMI] 40.0-44.9, adult; N17.9 Acute kidney failure, unspecified; D62 Acute posthemorrhagic anemia; I12.0 Hypertensive chronic kidney disease with stage 5 chronic kidney disease or end stage renal disease; E87.2 Acidosis; D63.8 Anemia in other chronic diseases classified elsewhere; E66.9 Obesity, unspecified; E11.65 Type 2 diabetes mellitus with hyperglycemia; E87.5 Hyperkalemia; E11.22 Type 2 diabetes mellitus with diabetic chronic kidney disease; S91.302A Unspecified open wound, left foot, initial encounter; E11.42 Type 2 diabetes mellitus with diabetic polyneuropathy; Z79.4 Long term (current) use of insulin; Z99.2 Dependence on renal dialysis; V58.4XXA Person boarding or alighting a pick-up truck or van injured in noncollision transport accident, initial encounter; Y92.410 Unspecified street and highway as the place of occurrence of the external cause
CPT/HCPCS: 36415; 36430; 71045; 73590; 76775; 76937; 80048; 80053; 80061; 80069; 80202; 80307; 81001; 81003; 82040; 82043; 82306; 82570; 82652; 82962; 83036; 83735; 83970; 84100; 84155; 84156; 84165; 84166; 84300; 84443; 85025; 85610; 85730; 86320; 86325; 86706; 86850; 86900; 86901; 86920; 87086; 87340; 90471; 90715; 90935; 93005; 93306; 96374; 97110; 97162; 97530; C1713; C9113; J0360; J0610; J0690; J0692; J0696; J1100; J1170; J1200; J1644; J1815; J2150; J2250; J2270; J2274; J2405; J2765; J2795; J3370; J3475; J7030; J7040; P9016; P9059; Q5105